=== PATIENT | male | born 1970 | race Caucasian/White ===

== ENCOUNTER 2018-07-06 03:34 | Inpatient (IN) ==
[2018-07-06] MEDS ORDERED: NS 500 ML IV ONE (04:03)
[2018-07-06] MEDS ORDERED: MORPHINE IV ONE ×3 (04:04→06:06)
[2018-07-06] MEDS ORDERED: ZOFRAN IV ONE (04:08)
[2018-07-06 04:32] LABS: BASO# 0.03 X1000 (0.0-0.2); BASO% 0.2 % (0.0-0.8); EOS# 0.09 X1000 (0.0-0.7); EOS% 0.6 % (0.0-10.0); HEMATOCRIT 37.8 % (42.0-52.0); IMM GRAN# 0.04 X1000 (0.0-0.04); IMM GRAN% 0.3 % (0.0-0.5); LYMPH# 1.12 X1000 (1.2-3.4); LYMPH% 7.2 % (20.5-51.1); MCV 85.8 FL (81-99); MONO# 1.87 X1000 (0.11-0.59); MPV 11.7 FL (7.4-10.4); NEUT# 12.37 X1000 (1.4-6.5); NEUT% 79.7 % (42.2-75.2); PLT 189 X1000 (130-400); RBC 4.43 XMIL (4.7-6.1); RDW 13.1 % (11.5-14.5)
[2018-07-06 04:34] LABS: MCH 31.8 PG (27-31); WBC 15.89 X1000 (4.8-10.8)
[2018-07-06 04:38] LABS: AGAP 17; ALBUMIN 3.1 g/dL (3.5-5.0); ALKALINE PHOSPHATASE 96 U/L (32-122); BUN 10 mg/dL (8-22); CALCIUM 8.2 mg/dL (8.8-10.2); CHLORIDE 87 mmol/L (98-107); COSMO 263; CREATININE 0.5 mg/dL (0.7-1.2); ESTIMATED GFR > 60; GLUCOSE 384 mg/dL (70-104); POTASSIUM 3.9 mmol/L (3.5-5.1); SODIUM 123 mmol/L (136-145); TCO2 19 mmol/L (25-35); TOTAL PROTEIN 6.5 g/dL (6.3-8.3)
[2018-07-06 04:43] LABS: AMYLASE 133 U/L (20-200); GOT < 5 U/L (10-34); GPT 43 U/L (10-44); LIPASE 890 U/L (13-60)
[2018-07-06] MEDS ORDERED: HUMULIN R IV ONE (04:58)
[2018-07-06 06:01] LABS: BILIRUBIN URINE NEGATIVE (NEGATIVE); BLOOD URINE 1+ (NEGATIVE); CLARITY CLEAR (CLEAR); COLOR YELLOW; KETONE URINE 3+(Large) mg/dL (NEGATIVE); LEUKOCYTES URINE NEGATIVE (NEGATIVE); NITRITE URINE NEGATIVE (NEGATIVE); PROTEIN URINE TRACE mg/dL (NEGATIVE); UROBILINOGEN URINE NORMAL
[2018-07-06 06:07] LABS: URINE EPITHELIAL CELLS <10 /HPF (<10); URINE RBC <10 /HPF (<10); URINE SOURCE CLEAN CATCH; URINE WBC <10 /HPF (<10)
[2018-07-06] MEDS ORDERED: NS 1,000 ML IV SCH (06:15)
--- NOTE | 2018-07-06 06:21 | PROVIDER DOCUMENTATION ---
HPI-Abdominal Pain/GI Problem - General Chief Complaint: Abdominal Pain Stated Complaint: ABD PAIN Time Seen by Provider: 07/06/18 04:02 Source: patient, family Allergies/Adverse Reactions: Patient Allergies Allergy/AdvReac Type Severity Reaction Status Date / Time Sulfa (Sulfonamide Allergy Severe RASH Verified 07/06/18 03:56 Antibiotics) Home Medications: Home Medication List Medication Instructions Recorded Confirmed Last Taken Type Diclofenac Potassium [Zipsor] 25 mg PO DAILY 05/16/13 01/06/14 05/14/13 History Losartan Potassium 100 mg PO QAM 05/16/13 05/17/18 05/19/13 08:00 History Clonidine HCl 0.2 mg PO Q6-8H PRN PRN #20 tablet 01/06/14 05/17/18 Unknown Rx Losartan [Cozaar] 100 mg PO DAILY 10/04/15 10/04/15 Unknown History Meclizine HCl [Antivert] 25 mg PO Q8H PRN #20 tab 05/17/18 Unknown Rx Ondansetron Odt [Zofran 4 mg Odt] 4 mg PO Q6H PRN PRN #20 tab 05/17/18 Unknown Rx Promethazine [Phenergan] 25 mg PO Q6H PRN PRN #20 tab 05/17/18 Unknown Rx - History of Present Illness-ABD Nature of Presenting Problems: 47 yo WM had an umbilical hernia repaired a fewdays ago, developed midepigastric pain shortly thereafter. He has had increasingly severe pain , prompting a visit to the ER around 4 am. He denies any recent alcohol injestion, gallbladder disease, thiazide diuretics, bee or wasp stings and IVD use Review of Systems - Adult - REVIEW OF SYSTEMS - ADULT Constitutional: reports: see HPI, fatique, night sweats Eyes: reports: no symptoms reported Ears, Nose, Mouth & Throat: reports: no symptoms reported Cardiovascular: reports: no symptoms reported Respiratory: reports: no symptoms reported Gastrointestinal: reports: see HPI, abdominal pain. denies: hematemesis, diarrhea, vomiting Genitourinary: reports: no symptoms reported Musculoskeletal: reports: no symptoms reported Integumentary: reports: no symptoms reported Neurological: reports: no symptoms reported Psychiatric: reports: no symptoms reported Endocrine: reports: no symptoms reported Hematologic/Lymphatic: reports: no symptoms reported Allergic/Immunologic: reports: no symptoms reported Past History - Adult - PAST MEDICAL HISTORY-ADULT Review of Records: reports: Medications Reviewed Major Childhood Illnesses: reports: denies history Cardiovascular: reports: HTN Respiratory: reports: denies history Gastrointestinal: reports: denies history Genitourinary: reports: denies history Musculoskeletal: reports: denies history Neurological: reports: denies history Psychiatric: reports: anxiety Endocrine/Immune: reports: denies history Other Conditions: reports: denies history - PRIOR SURGERIES/PROCEDURES Surgical/Procedure History: reports: hernia repair, orthopedic (extremity) - IMMUNIZATION STATUS Childhood Immunizations: See Nurse Assessment Flu Vaccine: See Nurse Assessment - FAMILY HISTORY Family History: reviewed, not pertinent Physical Exam-General - PHYSICAL EXAM-ADULT Initial Vital Signs Reviewed: Yes - CONSTITUTIONAL General Appearance: alert, severe distress, obese - EYES Eyes: PERRL/EOMI, pink conjunctivae - HEAD, EARS, NOSE, MOUTH & THROAT HENMT: normocephalic/atraumatic, moist mucous membranes - NECK Neck: non-tender, full range of motion, supple - RESPIRATORY Respiratory: chest non-tender, lungs clear, normal breath sounds, no accessory muscle use - CARDIOVASCULAR Cardiovascular: normal peripheral pulses, regular rate, rhythm, no edema, no gallop, no JVD, no murmur - GASTROINTESTINAL (ABDOMEN) Abdominal Exam: distended, guarding, tenderness, hepatomegaly. negative: normal bowel sounds - MUSCULOSKELETAL Back Exam: normal inspection, no CVA tenderness Extremity: normal range of motion Peripheral Pulses: radial (R): 3+, radial (L): 3+, dorsalis-pedis (R): 3+, dorsalis-pedis (L): 3+ - SKIN Integumentary: normal color, normal turgor, warm/dry - NEUROLOGIC Neurologic: grossly normal - PSYCHIATRIC Psych/Mental Status: anxious Progress - PLAN OF CARE/RESULTS Progress/Plan/Lab Results: Vital Signs - 8 hr 07/06/18 03:41 Temperature 97.9 F Pulse Rate 121 H Respiratory Rate 22 Blood Pressure 143/102 O2 Sat by Pulse Oximetry 96 Laboratory Results - last 24 hr 07/06/18 07/06/18 07/06/18 03:55 03:55 05:50 WBC 15.89 H RBC 4.43 L Hgb 14.0 Hct 37.8 L MCV 85.8 MCH 31.8 H MCHC 37.0 RDW Std Deviation 13.1 Plt Count 189 MPV 11.7 H Immature Gran % (Auto) 0.3 Neut % (Auto) 79.7 H Lymph % (Auto) 7.2 L Peach % (Auto) 12.0 H Eos % (Auto) 0.6 Baso % (Auto) 0.2 Immature Gran # (Auto) 0.04 Neut # (Auto) 12.37 H Lymph # (Auto) 1.12 L Peach # (Auto) 1.87 H Eos # (Auto) 0.09 Baso # (Auto) 0.03 Sodium 123 L Potassium 3.9 Chloride 87 L Carbon Dioxide 19 L Anion Gap 17 BUN 10 Creatinine 0.5 L Estimated GFR/1.73 m2 > 60 BUN/Creatinine Ratio 20 Glucose 384 H Calculated Osmolality 263 Calcium 8.2 L Total Bilirubin 0.60 AST < 5 L ALT 43 Alkaline Phosphatase 96 Total Protein 6.5 Albumin 3.1 L Globulin 3.0 Albumin/Globulin Ratio 1.0 Amylase 133 Lipase 890 H Urine Source CLEAN CATCH Urine Color YELLOW Urine Clarity CLEAR Urine pH 5.0 Ur Specific [place] 1.010 Urine Protein TRACE A Urine Ketones 3+(Large) A Urine Blood 1+ A Urine Nitrite NEGATIVE Urine Bilirubin NEGATIVE Urine Urobilinogen NORMAL Urine Microscopic RBC <10 Urine WBC NEGATIVE Urine Microscopic WBC <10 Ur Epithelial Cells <10 Urine Glucose 3+(500 mg/dL) A Orders Category Date Time Status Saline Loc DIRECTED Care 07/06/18 03:45 Active NPO Diet 07/06/18 03:[address] ABD/PELVIS W/IV CONT ONLY [CT] Stat Exams 07/06/18 04:51 Taken FLAT/UPRIGHT ABD/1 VIEW CHEST [RAD] Stat Exams 07/06/18 04:02 Taken AMYLASE [CHEM] Stat Lab 07/06/18 03:55 Completed CBC WITH ELECTRONIC DIFF [HEME] Stat Lab 07/06/18 03:55 Completed COMPREHENSIVE METABOLIC PANEL [CHEM] Stat Lab 07/06/18 03:55 Completed LIPASE [CHEM] Stat Lab 07/06/18 03:[address] W/POSS RFLX CULT [URINALYSIS] Stat Lab 07/06/18 05:50 Completed 0.9% Sodium Chloride Inj [Ns] 1,000 ml Med 07/06/18 06:15 Active IV 500 mls/hr 0.9% Sodium Chloride Inj [Ns] 500 ml Med 07/06/18 04:03 Discontinued IV 999 mls/hr Insulin Human Regular [Humulin R] Med 07/06/18 04:58 Discontinued 8 unit IV NOW ONE Morphine Med 07/06/18 04:04 Discontinued 6 mg IV NOW ONE Morphine Med 07/06/18 05:04 Discontinued 6 mg IV NOW ONE Morphine Med 07/06/18 06:06 Discontinued 8 mg IV NOW ONE Ondansetron [Zofran] Med 07/06/18 04:08 Discontinued 4 mg IV NOW ONE Result Diagrams: 07/06/18 03:55 07/06/18 03:55 - CT/MRI 1 CT Study: Abdomen, Pelvis (pancreatitis, primarily head) - CONSULTS/PCP/HOSPITALIST Notification #1 *Consult/PCP/Hospitalist*: Dr Lopez Time Discussed: 06:15 Consult Disposition: Admit - CHANGE OF SHIFT REPORT (ED Provider) Items Pending: Pain Control Departure - Departure Date of Disposition Decision: 07/06/18 Time of Disposition Decision: 06:30 DIAGNOSIS: Pancreatitis, acute Qualifiers: Pancreatitis type: idiopathic Acute pancreatitis complication: no infection or necrosis Qualified Code(s): K85.00 - Idiopathic acute pancreatitis without necrosis or infection Disposition: ADMITTED INPATIENT 09 Certified Medical Emergency: Emergent Condition: Fair Referrals and Follow-Ups: Adán Dougherty MD [Primary Care Provider] - - Critical Care Note This patient required my direct & personal management of CC.: Yes Total Time (mins): 45 Critical Care Statement: This patient required my direct personal management to treat or rule out processes, the absence of which, could potentiallly result in sudden, clinically significant life or limb threatening deterioration. Attestation - Physician/ TITI Attestation The physician spent face to face time with patient:: Yes Advanced Practice Provider documentation review:: Supervising physician onsite and consulted in the evaluation and care of this patient. The physician did have a face to face encounter with the patient.
--- NOTE | 2018-07-06 07:33 | Diag Imaging Result Doc PS360 ---
EXAM: FLAT/UPRIGHT ABD/1 VIEW CHEST HISTORY: acute TECHNIQUE: Flat and upright with chest, four views COMPARISON: None. FINDINGS: The lungs are well expanded. No pneumonia. No cardiomegaly. No free air beneath the diaphragm. No bowel obstruction. No organomegaly. No foreign body. No abnormal calcifications. IMPRESSION: No acute abnormality. Electronically signed by Jose Luis Guillen 07/06/2018 7:31 AM
--- NOTE | 2018-07-06 07:34 | Diag Imaging Result Doc PS360 ---
EXAM: CT ABD/PELVIS W/IV CONT ONLY INDICATION: acute abdomen - pancreatitis TECHNIQUE: This exam was performed using automated exposure control, adjustment of mA or kV according to patient size, and/or use of iterative reconstruction technique. COMPARISON: 05/17/2018 FINDINGS: There is mild subsegmental atelectasis at the lung bases. There is significant diffuse hepatic steatosis. The gallbladder is unremarkable and there is no biliary dilatation. There is inflammatory stranding and trace free fluid around the pancreatic head consistent with acute pancreatitis. There is no CT evidence of pancreatic necrosis and no peripancreatic abscess or pseudocyst is identified. The portal and splenic veins are patent. There is no pancreatic ductal dilatation. The spleen and adrenal glands are unremarkable. There is a small simple appearing right renal cyst. The kidneys are unremarkable, otherwise. Urinary bladder is unremarkable. There is mild sigmoid colonic diverticulosis. There is no evidence of diverticulitis. The appendix is normal. The remainder of the GI tract is essentially unremarkable. IMPRESSION: 1.Acute pancreatitis as described. 2.Severe diffuse hepatic steatosis. 3.Other external/nonacute findings detailed above. Electronically signed by Emmett Turner 07/06/2018 7:32 AM
--- NOTE | 2018-07-06 08:55 | EKG Report ---
Test Performed on : 07/06/2018 06:24:43 AM Test Reason : CP Blood Pressure : / mmHG Vent. Rate : 115 BPM Atrial Rate : 115 BPM P-R Int : 130 ms QRS Dur : 092 ms QT Int : 324 ms P-R-T Axes : 059 028 029 degrees QTc Int : 448 ms Sinus tachycardia. with occasional premature ventricular complexes. Otherwise normal ECG No previous ECGs available Unconfirmed Result
[2018-07-06] MEDS ORDERED: SODIUM CHLORIDE 0.9% 10 ML ONE (11:16)
[2018-07-06] MEDS: ZOFRAN IV PRN ×3 (11:23→22:20)
[2018-07-06] MEDS: PROTONIX IV SCH ×2 (11:25→22:20)
[2018-07-06] MEDS: DILAUDID IV PRN ×4 (11:27→21:08)
[2018-07-06] MEDS: NS 1,000 ML IV SCH ×2 (13:10→21:15)
[2018-07-06] MEDS ORDERED: M.V.I.-12 10 ML, FOLIC ACID 1 MG, MAGNESIUM SULFATE 1 GM, THIAMINE 100 MG in NS 1,000 ML IV ONE (13:11)
[2018-07-06] MEDS: LIBRIUM PO SCH ×2 (13:35→19:43)
[2018-07-06] MEDS ORDERED: ATIVAN IV ONE (14:48)
--- NOTE | 2018-07-06 22:57 | HISTORY AND PHYSICAL ---
CHIEF COMPLAINT: Abdominal pain and nausea for 3 days. HISTORY OF PRESENT ILLNESS: This is a 47-year-old gentleman who presented to the emergency room after 3 days of abdominal pain. He states that the pain has slowly increased over time and he describes it as excruciating on triage. He did have some accompanying nausea. He has not vomited. He did have 3 bowel movements yesterday and he denied any black or bloody stools. He was noted to have a white count of 15.8 with lipase of 890. CT of the abdomen and pelvis was performed which revealed acute pancreatitis and severe diffuse hepatic steatosis. PAST MEDICAL HISTORY: Hypertension, hyperlipidemia and chronic back pain. 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 SOCIAL HISTORY: He smokes a pack a day. He does drink alcohol. ALLERGIES: Sulfa which causes a rash. HOME MEDICATIONS: A list will be obtained by the nursing staff. Once verified , will be restarted as is appropriate. REVIEW OF SYSTEMS: Discussed with the patient with pertinent positives stated in the HPI. He denied any syncope, dizziness, chest pain, palpitations, any shortness of breath , cough, fever, chills, any night sweats, recent weight loss or weight gain, any black or bloody vomitus or stools, any vomiting, any diarrhea, any hematuria, dysuria, frequency, urgency. PHYSICAL EXAMINATION: GENERAL: This is a 47-year-old gentleman who is sitting up in the bed in the emergency room in mild distress. VITAL SIGNS: Blood pressure is 120/76 with a heart rate of 106, respirations are 20, temperature is 97.2 degrees with O2 saturations being 97% on 2 L nasal cannula. EYES: Pupils are equal, round, react to light. EOMs are intact. Sclerae anicteric. HENT: Head is normocephalic, atraumatic. Mucous membranes are dry. NECK: Supple with trachea midline. CARDIOVASCULAR: Regular rate and rhythm. S1 and S2 appreciated. He has no lower extremity edema. Peripheral pulses are palpable x4 extremities. PULMONARY: Breath sounds are clear with no increased work of breathing noted. GASTROINTESTINAL: Abdomen is distended, tight It is tender to palpation more so in the epigastric area. Bowel sounds are positive in all 4 quadrants. SKIN: Warm and dry. NEUROLOGIC: He is alert and oriented. LABS: WBCs are 15.8 with hemoglobin 14, hematocrit 37.8, platelets of 189,000. Sodium is 123, potassium 3.9, BUN 10, creatinine 0.5 with a glucose of 384, lipase is 890. CT of the abdomen and pelvis revealed acute pancreatitis with severe diffuse hepatic steatosis with a small simple- appearing cyst on the right kidney. There is no evidence of diverticulitis. Appendix is normal. ASSESSMENT AND PLAN: 1. Acute pancreatitis. The patient will remain NPO. We will give IV hydration. He will be placed in ICU for close monitoring. 2. Nausea. We will use antiemetics. 3. Abdominal pain. We will give Dilaudid 1 mg IV q.3 hours p.r.n. 4. Hyponatremia. We will give IV hydration and recheck labs in the morning. 5. Alcohol use and abuse. We will start a Librium taper. We will give a banana bag 1 time, 6. Hypertension Hydralazine IV prn until he can tolerate oral medications. 7. Hyperglycemia - HbgA1c, trend labs Further treatments pending hospital course. Dictated by KT Jara for Wolfgang Uribe MD This chart was documented by, KT Jara and accurately reflects the services performed, treatment plan and medical decisions as attested by the providers signature Wolfgang Uribe MD. cc: KT Jara MD [facility]
[2018-07-07] MEDS: DILAUDID IV PRN ×6 (00:08→18:20)
[2018-07-07] MEDS: LIBRIUM PO SCH ×4 (01:13→20:39)
[2018-07-07] MEDS: NS 1,000 ML IV SCH ×4 (01:14→22:44)
--- NOTE | 2018-07-07 03:03 | HISTORY AND PHYSICAL ---
Patient presented to the hospital with intense abdominal pain, was subsequently diagnosed with pancreatitis. He does have a known history of frequent alcohol ingestion. We will admit him to the hospital ICU, keep him NPO, pain control and we will follow. cc: Wolfgang Uribe MD
[2018-07-07] MEDS: ZOFRAN IV PRN ×2 (03:14→20:40)
[2018-07-07] MEDS: SODIUM CHLORIDE 0.9% INJ SCH (11:42)
[2018-07-07] MEDS: PROTONIX IV SCH ×2 (11:42→22:44)
[2018-07-07 12:21] LABS: HEMOGLOBIN A1C 11.5 % (4.8-6.0)
[2018-07-07 12:26] LABS: HEMATOCRIT 37.7 % (42.0-52.0); HEMOGLOBIN 12.2 g/dL (14.0-18.0); MCH 29.5 PG (27-31); MCHC 32.4 g/dL (33-37); MCV 91.3 FL (81-99); MPV 12.4 FL (7.4-10.4); RBC 4.13 XMIL (4.7-6.1); RDW 14.5 % (11.5-14.5); WBC 5.15 X1000 (4.8-10.8)
[2018-07-07 12:40] LABS: AGAP 16; ALBUMIN 2.6 g/dL (3.5-5.0); ALKALINE PHOSPHATASE 70 U/L (32-122); AMYLASE 210 U/L (20-200); BUN 17 mg/dL (8-22); CHLORIDE 96 mmol/L (98-107); COSMO 281; ESTIMATED GFR > 60; GOT 20 U/L (10-34); GPT 27 U/L (10-44); LIPASE 444 U/L (13-60); POTASSIUM 5.1 mmol/L (3.5-5.1); SODIUM 128 mmol/L (136-145); TCO2 17 mmol/L (25-35); TOTAL PROTEIN 5.3 g/dL (6.3-8.3)
[2018-07-07 12:41] LABS: CALCIUM 5.9 mg/dL (8.8-10.2); GLUCOSE 504 mg/dL (70-104)
[2018-07-07] MEDS ORDERED: CALCIUM GLUCONATE 1 GM in NS 50 ML IV ONE (13:15)
[2018-07-07] MEDS: HUMALOG DOSE (PARKWAY) SUBQ SCH ×3 (16:24→20:40)
[2018-07-07] MEDS ORDERED: DILAUDID IV PRN (18:30)
--- NOTE | 2018-07-08 00:25 | PROGRESS NOTE ---
DATE: 07/07/2018 SUBJECTIVE: The patient states he is still having lots of abdominal pain in his epigastric region requiring IV pain medication. The patient is very adamant that he is going to start being allowed to drink or he is going to drink out of the sink. The patient is somewhat verbally abusive to his as well as the staff, more so to the female staff than to the male staff. PHYSICAL EXAMINATION: Vital Signs: Reviewed. He is afebrile. Blood pressure stable. Heart rate 80s. General: Patient is an obese male who chooses to be unpleasant most of the time. He is quite demanding and has a somewhat persistent refusal to listen to instructions or follow directions. HEENT: Normocephalic. Neck: Supple. Cardiovascular: Regular rate. Chest: Clear, nonlabored. Abdomen: Soft, morbidly obese. Tender in the epigastric region. No real tenderness elsewhere. No guarding. No rebound. Extremities: Moves all extremities. Neurologic: No focal changes. ASSESSMENT: 1. New onset diabetes. 2. Acute pancreatitis. The patient does have a history of drinking alcohol although his now states that this is not as much as was previously stated. 3. Chronic tobacco abuse. We will attempt a nicotine patch. 4. Hyponatremia, improved. 5. Significant unpleasantness. PLAN: We will continue patient in the hospital. His amylase and lipase both are still elevated at above 200 and above 400. The patient is still requiring frequent high dose IV pain medication. I discussed with Mr. Villanueva very explicitly the role of all oral intake to pancreatitis. Discussed with him that people his age do in fact actually from this disease and it needs to be taken seriously. We will continue to follow. We will check triglycerides. We will place him on sliding scale insulin. Discussed with patient that our typical policy is if he is requiring IV pain medication that we are not yet ready to start drinking liquids. We will continue to follow. Continue to encourage medical compliance. Hopefully he will decline to have further unnecessary outbursts and therefore security will not need to be called in the future. cc: Wolfgang Uribe MD
[2018-07-08] MEDS: NORCO-10 PO PRN ×4 (01:46→21:26)
[2018-07-08] MEDS: ZOFRAN IV PRN ×3 (01:47→21:27)
[2018-07-08] MEDS: NICODERM PATCH TD PRN (01:47)
[2018-07-08] MEDS: LIBRIUM PO SCH ×3 (05:33→21:27)
[2018-07-08] MEDS: NS 1,000 ML IV SCH ×3 (05:33→22:09)
[2018-07-08] MEDS: HUMALOG DOSE (PARKWAY) SUBQ SCH ×4 (07:15→22:06)
[2018-07-08 07:27] LABS: HEMATOCRIT 33.8 % (42.0-52.0); HEMOGLOBIN 10.4 g/dL (14.0-18.0); MCH 28.7 PG (27-31); MCHC 30.8 g/dL (33-37); MCV 93.4 FL (81-99); MPV 12.3 FL (7.4-10.4); RBC 3.62 XMIL (4.7-6.1); RDW 14.9 % (11.5-14.5); WBC 5.22 X1000 (4.8-10.8)
[2018-07-08 07:54] LABS: AGAP 12; ALBUMIN 2.2 g/dL (3.5-5.0); ALKALINE PHOSPHATASE 66 U/L (32-122); AMYLASE 112 U/L (20-200); BUN 13 mg/dL (8-22); CALCIUM 6.9 mg/dL (8.8-10.2); CHLORIDE 101 mmol/L (98-107); COSMO 275; CREATININE 0.7 mg/dL (0.7-1.2); ESTIMATED GFR > 60; GLUCOSE 212 mg/dL (70-104); GOT 21 U/L (10-34); GPT 23 U/L (10-44); LIPASE 217 U/L (13-60); POTASSIUM 4.3 mmol/L (3.5-5.1); SODIUM 134 mmol/L (136-145); TCO2 21 mmol/L (25-35); TOTAL PROTEIN 5.9 g/dL (6.3-8.3)
[2018-07-08] MEDS ORDERED: CALCIUM GLUCONATE 2 GM in NS 100 ML IV ONE (10:00)
--- NOTE | 2018-07-08 10:50 | Diag Imaging Result Doc PS360 ---
CT ABD/PELVIS W/IV CONT ONLY - 07/08/2018 INDICATION: abd/groin pain, pancreatitis COMPARISON: 07/06/2018 FINDINGS: There are small bibasilar infiltrates. Small bilateral pleural effusions. There is worsening peripancreatic edema consistent with acute pancreatitis. There is trace ascites in the pelvis. Stable severe hepatic steatosis. No drainable fluid collections. IMPRESSION: Worsening from prior. This exam was performed using automated exposure control, adjustment of mA or kV according to patient size, and/or use of iterative reconstruction technique Electronically signed by Richard Higgins 07/08/2018 10:48 AM
[2018-07-08] MEDS: SODIUM CHLORIDE 0.9% INJ SCH (11:04)
[2018-07-08] MEDS: PROTONIX IV SCH ×2 (11:04→22:30)
--- NOTE | 2018-07-08 20:02 | PROGRESS NOTE ---
DATE: 07/08/2018 SUBJECTIVE: Patient notes that he is feeling better. States he did attempt to drink out of the sink last night, unfortunately this made his abdomen hurt much worse and then he decided that was not a good idea. OBJECTIVE: Vital Signs: Reviewed. He is awake, alert. He is in no current distress. HEENT: Normocephalic. Neck: Supple. CARDIOVASCULAR: Regular rate. Chest: Clear. Abdomen: Soft, obese. Minimal tenderness in the epigastric region, much improved from previous. Extremities: He moves all extremities. ASSESSMENT: 1. Acute pancreatitis. 2. Nausea. 3. Abdominal pain. 4. Hyponatremia. 5. Diabetes with extremely poor home control with an A1c of 11.5. 6. Hypertriglyceridemia at 1783. Overall patient has improved. His leukocytosis has improved. His hyponatremia has improved. Blood sugars are more stable. Lipase down to 217. His symptoms appear to be improving clinically, although CT scan appeared to be worse. We will allow him to have clear liquids. Discussed with him that if this is making his stomach hurt more, he certainly needs to stop. We will transfer to the floor. Continue sliding scale insulin and will follow. cc: Wolfgang Uribe MD
[2018-07-08 23:19] LABS: URINE EPITHELIAL CELLS <10 /HPF (<10); URINE RBC 20-40 /HPF (<10); URINE SOURCE CATH; URINE WBC <10 /HPF (<10)
[2018-07-08 23:20] LABS: BILIRUBIN URINE NEGATIVE (NEGATIVE); BLOOD URINE 3+ (NEGATIVE); CLARITY CLEAR (CLEAR); COLOR YELLOW; KETONE URINE 2+(Moderate) mg/dL (NEGATIVE); LEUKOCYTES URINE NEGATIVE (NEGATIVE); NITRITE URINE NEGATIVE (NEGATIVE); PROTEIN URINE TRACE mg/dL (NEGATIVE); URINE BACTERIA 1+ /HFP; UROBILINOGEN URINE NORMAL
[2018-07-09] MEDS: HUMALOG DOSE (PARKWAY) SUBQ SCH ×5 (00:34→21:00)
[2018-07-09] MEDS: NS 1,000 ML IV SCH ×2 (00:34→13:28)
[2018-07-09] MEDS ORDERED: ATIVAN ONE (01:32)
[2018-07-09] MEDS ORDERED: ATIVAN IV ONE ×2 (01:59→10:00)
[2018-07-09] MEDS ORDERED: VANCOMYCIN IV PER PHARMACY MISC SCH (02:00)
[2018-07-09] MEDS: VANCOMYCIN 1 GM/NS 1 GM/250 ML IVPB IV SCH ×2 (02:18→02:48)
[2018-07-09] MEDS: ZOSYN 3.375 GM in NS 50 ML IV SCH ×4 (02:18→21:21)
[2018-07-09 02:29] LABS: BASO# 0.01 X1000 (0.0-0.2); BASO% 0.2 % (0.0-0.8); EOS# 0.08 X1000 (0.0-0.7); EOS% 1.6 % (0.0-10.0); HEMATOCRIT 33.6 % (42.0-52.0); HEMOGLOBIN 10.7 g/dL (14.0-18.0); IMM GRAN# 0.05 X1000 (0.0-0.04); LYMPH# 0.58 X1000 (1.2-3.4); LYMPH% 11.7 % (20.5-51.1); MCH 30.1 PG (27-31); MCHC 31.8 g/dL (33-37); MCV 94.4 FL (81-99); MONO# 0.25 X1000 (0.11-0.59); MONO% 5.1 % (1.7-9.3); NEUT# 3.98 X1000 (1.4-6.5); NEUT% 80.4 % (42.2-75.2); PLT 135 X1000 (130-400); RBC 3.56 XMIL (4.7-6.1); WBC 4.95 X1000 (4.8-10.8)
[2018-07-09] MEDS: NORCO-10 PO PRN (02:29)
[2018-07-09 04:00] LABS: BANDS 9 % (0-1); EOS 1 % (1-10); LYMPHS 12 % (21-51); MONO 1 % (1-9); SEGS 77 % (42-75)
[2018-07-09 04:01] LABS: ANISOCYTOSIS 1+; LARGE PLATELETS 1+; POIKILOCYTOSIS 1+; STOMATOCYTES 1+
[2018-07-09 04:14] LABS: AGAP 12; BUN 8 mg/dL (8-22); CALCIUM 8.1 mg/dL (8.8-10.2); CHLORIDE 104 mmol/L (98-107); COSMO 280; CREATININE 0.7 mg/dL (0.7-1.2); ESTIMATED GFR > 60; GLUCOSE 200 mg/dL (70-104); POTASSIUM 3.4 mmol/L (3.5-5.1); SODIUM 138 mmol/L (136-145); TCO2 23 mmol/L (25-35)
[2018-07-09] MEDS ORDERED: ATROVENT NEB INH ONE (08:03)
[2018-07-09] MEDS ORDERED: XOPENEX NEB INH ONE (08:03)
[2018-07-09 08:11] LABS: BE -4.8 mmoll (-3.0-3.0); BLOOD TYPE ARTERIAL; O2(CT) 16.2 mL/dL (15.0-23.0); O2HB 90.1 % (95.0-99.0); PO2(98.6) 52 mmHg (60-100); SAMPLE BLOOD; SAO2 93.4 % (95.0-100.0); THB 12.8 g/dL (11.5-17.4)
[2018-07-09 08:15] LABS: PCO2(98.6) 62 mmHg (35-45)
[2018-07-09 08:16] LABS: ALLEN TEST YES; MODALITY VENTIMASK
--- NOTE | 2018-07-09 08:36 | Diag Imaging Result Doc PS360 ---
EXAM: CHEST-PORTABLE - 07/09/2018 HISTORY: low O2 SAt TECHNIQUE: Portable chest COMPARISON: 07/06/2018 FINDINGS: Inspiration is somewhat shallow, with some atelectasis at the bilateral lung bases and left perihilar region. There are no other acute changes identified. Allowing for inspiration and the AP projection, heart size appears within normal limits. IMPRESSION: Somewhat shallow inspiration, with associated bibasilar and left perihilar atelectasis. Electronically signed by Adán Negron 07/09/2018 8:34 AM
[2018-07-09] MEDS: LIBRIUM PO SCH (08:41)
[2018-07-09 08:44] LABS: ALBUMIN 2.2 g/dL (3.5-5.0); ALKALINE PHOSPHATASE 79 U/L (32-122); DIRECT BILIRUBIN < 0.20 mg/dL (0.00-0.20); GOT 51 U/L (10-34); GPT 40 U/L (10-44)
[2018-07-09] MEDS: HALDOL IV ONE (10:24)
[2018-07-09] MEDS ORDERED: NS 1,000 ML IV SCH (10:45)
--- NOTE | 2018-07-09 11:04 | PROGRESS NOTE ---
DATE: 07/09/2018 SUBJECTIVE: The patient has no focal complaints. OBJECTIVE: Vital Signs: Blood pressure is 153/91, heart rate of 118, respiratory rate 20, temperature 98.9 degrees, 95% on BiPAP, 90% on 6 L. General: The patient is very agitated, he just has a lot of issues associated with that. Cardiovascular: Tachy. Pulmonary: Rhonchi, wheezing. GI: Soft, nontender, nondistended. Bowel sounds were positive. LABORATORY DATA: His potassium is 3.4, hemoglobin and hematocrit is 10 and 33. PH 7.2, pCO2 62, PaO2 52. Lactate is normal. He is very hypercapnic. PROBLEM LIST: 1. Acute pancreatitis, with some degree of sepsis associated. He is tachycardic, and he developed hypoxic respiratory failure. We will continue to follow. He is very agitated. I am not sure if this is related to other processes going on. 2. Acute respiratory failure. We will get some diuresis. His chest x-ray is clear. I am going to put him on some breathing treatments. He has been placed on BiPAP. Chest x-ray shows some degree of volume overload. I think we will continue. We will decrease that and offer some Lasix, help with diuresis. 3. Encephalopathy may be related to pain medication or metabolic with sepsis, or possibly alcohol withdrawal. He is on Librium, so there is a component of alcohol withdrawal, I think. DISPOSITION: Pending his clinical status. We will continue to follow closely. TIME SPENT: This is a 32 minute critical care time for association with respiratory failure, and now he is requiring positive-pressure ventilation. We will continue to follow closely. cc: Galindo Patel MD
[2018-07-09] MEDS: XOPENEX NEB INH SCH ×4 (11:55→23:00)
[2018-07-09] MEDS: ATROVENT NEB INH SCH ×4 (11:56→23:00)
[2018-07-09] MEDS: THIAMINE 100 MG, FOLIC ACID 1 MG, M.V.I.-12 10 ML, MAGNESIUM SULFATE 1 GM, POTASSIUM CH... IV SCH ×6 (12:20)
[2018-07-09] MEDS: PROTONIX IV SCH ×2 (13:25→23:30)
[2018-07-09] MEDS: LOVENOX SUBQ SCH (13:26)
[2018-07-09] MEDS: VANCOMYCIN 2,000 MG in NS 500 ML IV SCH (14:51)
[2018-07-09] MEDS: ATIVAN IV PRN ×2 (14:57→21:35)
[2018-07-09] MEDS ORDERED: INSULIN PEN NEEDLES MISC PRN (15:30)
[2018-07-09] MEDS: HALDOL IV PRN ×2 (15:53→21:34)
[2018-07-09] MEDS: NICODERM PATCH TD PRN (15:54)
--- NOTE | 2018-07-09 16:41 | Diag Imaging Result Doc PS360 ---
EXAM: US ABDOMEN-COMPLETE - 07/09/2018 HISTORY: abdominal pain TECHNIQUE: Ultrasound abdomen COMPARISON: 07/08/2018 CT abdomen/pelvis FINDINGS: The technologist indicates that the exam is degraded by artifacts from the patient's body habitus, as well as inability of the patient to cooperate. The liver appears diffusely echodense suggesting fatty infiltration. There is no focal liver lesion identified. Doppler image shows apparent hepatopedal flow in the portal vein. The spleen is unremarkable. There is a small amount of ascites. There is apparent sludge in the gallbladder. There are no discrete shadowing gallstones identified. There is a small amount of nonspecific fluid around part of the gallbladder. The gallbladder ames are not obviously thickened. The common bile duct is upper normal in caliber at 6 mm. There are no abnormalities of the bilateral kidneys identified. The pancreas is obscured by artifacts. Abdominal aorta and IVC are also obscured by artifacts. IMPRESSION: Fatty infiltration of liver. No evidence of focal liver lesion. Small amount ascites. Sludge in gallbladder. No discrete gallstones. Small amount of nonspecific fluid near gallbladder. No obvious gallbladder wall thickening. Upper normal caliber common bile duct at 6 mm. The pancreas is obscured by artifacts. Electronically signed by Adán Negron 07/09/2018 4:38 PM
[2018-07-09] MEDS: OFIRMEV 1000 MG/ISOTONIC SOLN 1,000 MG/100 ML BOTTLE IV PRN (16:48)
[2018-07-09] MEDS: VASOTEC IV SCH (17:57)
[2018-07-09] MEDS ORDERED: INSULIN PEN NEEDLES ONE (20:58)
[2018-07-09] MEDS ORDERED: BASAGLAR SUBQ SCH (21:00)
[2018-07-09] MEDS: MORPHINE IV PRN (21:31)
[2018-07-09] MEDS ORDERED: CARDENE 20 MG/NS 20 MG/200 ML PIGGYBACK ONE (22:21)
[2018-07-09] MEDS: CARDENE 20 MG/NS 20 MG/200 ML PIGGYBACK IV SCH (23:00)
[2018-07-10] MEDS: NS 1,000 ML IV SCH (00:30)
[2018-07-10] MEDS: VASOTEC IV SCH ×3 (01:15→16:40)
[2018-07-10] MEDS: HALDOL IV PRN ×4 (01:30→19:38)
[2018-07-10] MEDS: ZOSYN 3.375 GM in NS 50 ML IV SCH ×4 (02:28→20:43)
[2018-07-10] MEDS: THIAMINE 100 MG, FOLIC ACID 1 MG, M.V.I.-12 10 ML, MAGNESIUM SULFATE 1 GM, POTASSIUM CH... IV SCH ×12 (02:30→10:54)
[2018-07-10] MEDS: CARDENE 20 MG/NS 20 MG/200 ML PIGGYBACK IV SCH ×5 (02:35→16:21)
[2018-07-10] MEDS: MORPHINE IV PRN ×3 (02:37→19:38)
[2018-07-10] MEDS: ATIVAN IV PRN ×4 (02:37→19:38)
[2018-07-10] MEDS: XOPENEX NEB INH SCH ×7 (02:50→22:35)
[2018-07-10] MEDS: ATROVENT NEB INH SCH ×6 (02:50→22:35)
[2018-07-10] MEDS: VANCOMYCIN 2,000 MG in NS 500 ML IV SCH ×2 (03:00→14:09)
[2018-07-10 06:22] LABS: BE -9.1 mmoll (-3.0-3.0); BLOOD TYPE ARTERIAL; HCO3-(ACT) 17.7 mmoll (20.0-26.0); METHB 1.1 % (0.0-1.5); O2(CT) 19.6 mL/dL (15.0-23.0); PCO2(98.6) 29 mmHg (35-45); PO2(98.6) 68 mmHg (60-100); SAMPLE BLOOD; SAO2 97.2 % (95.0-100.0); THB 14.8 g/dL (11.5-17.4); pH(98.6) 7.33 (7.35-7.45)
[2018-07-10 06:24] LABS: BASO# 0.02 X1000 (0.0-0.2); BASO% 0.4 % (0.0-0.8); EOS# 0.05 X1000 (0.0-0.7); EOS% 0.9 % (0.0-10.0); HEMATOCRIT 33.6 % (42.0-52.0); HEMOGLOBIN 10.3 g/dL (14.0-18.0); IMM GRAN# 0.21 X1000 (0.0-0.04); IMM GRAN% 3.8 % (0.0-0.5); LYMPH# 0.91 X1000 (1.2-3.4); LYMPH% 16.3 % (20.5-51.1); MCH 28.6 PG (27-31); MCHC 30.7 g/dL (33-37); MCV 93.3 FL (81-99); MONO% 10.8 % (1.7-9.3); MPV 10.9 FL (7.4-10.4); NEUT# 3.78 X1000 (1.4-6.5); NEUT% 67.8 % (42.2-75.2); PLT 158 X1000 (130-400); RDW 15.2 % (11.5-14.5); WBC 5.57 X1000 (4.8-10.8)
[2018-07-10 06:24] LABS: ALLEN TEST YES; MODALITY BI PAP
--- NOTE | 2018-07-10 06:32 | Diag Imaging Result Doc PS360 ---
CHEST-PORTABLE - 07/10/2018 INDICATION: dyspnea COMPARISON: 07/09/2018 FINDINGS: Stable severely low lung volumes. There is worsening central infiltrates bilaterally, right greater than left. There is worsening cardiomegaly and pulmonary vascular congestion. IMPRESSION: Severe worsening from prior. Electronically signed by Richard Higgins 07/10/2018 6:30 AM
[2018-07-10 06:39] LABS: ESTIMATED GFR > 60
[2018-07-10 06:41] LABS: AGAP 22; BUN 9 mg/dL (8-22); CALCIUM 8.2 mg/dL (8.8-10.2); CHLORIDE 108 mmol/L (98-107); COSMO 294; CREATININE 0.8 mg/dL (0.7-1.2); GGT 32 U/L (11-50); GLUCOSE 218 mg/dL (70-104); MAGNESIUM 1.7 mg/dL (1.5-2.7); PHOSPHORUS 1.7 mg/dL (2.7-4.5); POTASSIUM 3.1 mmol/L (3.5-5.1); SODIUM 145 mmol/L (136-145); TCO2 15 mmol/L (25-35)
[2018-07-10] MEDS: HUMALOG DOSE (PARKWAY) SUBQ SCH ×4 (06:45→20:19)
[2018-07-10 08:12] LABS: BANDS 8 % (0-1); EOS 1 % (1-10); LYMPHS 9 % (21-51); MONO 6 % (1-9); SEGS 76 % (42-75)
[2018-07-10] MEDS: NICODERM PATCH TD PRN (08:21)
[2018-07-10] MEDS: LOVENOX SUBQ SCH (10:54)
[2018-07-10] MEDS: PROTONIX IV SCH (10:54)
[2018-07-10] MEDS: SODIUM CHLORIDE 0.9% INJ SCH (10:54)
[2018-07-10] MEDS ORDERED: LASIX IV ONE (11:04)
[2018-07-10] MEDS ORDERED: HALDOL IV ONE (11:09)
[2018-07-10] MEDS ORDERED: POTASSIUM PHOSPHATE 40 MEQ in NS 250 ML IV ONE ×2 (11:26→19:00)
--- NOTE | 2018-07-10 11:49 | PROGRESS NOTE ---
DATE: 07/10/2018 SUBJECTIVE: The patient is very ill since. He is still altered. He is kind of grumbling and groaning. Although, last night according to the , he was more alert, awake, and then this morning, he is confused again. OBJECTIVE: Vital signs: Blood pressure is 154/83, heart rate of 126, sinus tachycardia, respiratory rate 24, temperature 99 degrees, 99% on 50%. Cardiovascular: Regular rate and rhythm, tachy. Pulmonary: Bilateral breath sounds. Diminished at the bases with wheezing, rales. GI: Soft, nontender, nondistended. Bowel sounds are positive. LABORATORY DATA: Potassium 3.1, creatinine still 0.8. Sugar to 218. Mag is 1.7, phos of 1.7. White count 5, hemoglobin and hematocrit 10 and 33, platelets 158,000. I do not have a new lipase today. Lactate has been normal though. PROBLEM LIST: 1. Severe acute pancreatitis likely related to hypertriglyceridemia with some degree of multiorgan system failure primarily respiratory failure. We will continue treatment. I am going to have to cut back on his fluids because he is clinically volume overloaded and showing signs of pulmonary edema certainly versus acute respiratory distress syndrome. We will initiate some IV nutrition and follow. 2. Acute respiratory failure. He is on BiPAP. He does look like he is getting somewhat confused. He has been confused, but he is getting more overloaded. We will continue BiPAP and continue diuresis and follow. 3. Encephalopathy, unclear etiology. Reportedly no alcohol history. His GGT is normal which would suggest no chronic alcohol use. I am going to go ahead and get a head CT today just to make sure there is not other processes, and we will continue to try to avoid super sedating medications, although he has required Haldol, Ativan, and morphine. 4. New onset diabetes, poorly controlled. Blood sugars are better. I am not sure though today if he is not developing some degree of diabetic ketoacidosis. He has a gap, and sugars are elevated, and he is acidotic with a CO2 that is compensated. His lactate level is normal. So I am not sure if there may be some DKA going on. We are going to evaluate that further and start insulin. 5. Hypertriglyceridemia. He will need medications once he is stabilized. Obviously, he cannot start those now considering his altered mental status, and we will follow. 6. Protein calorie malnutrition. We will initiate Clinimix. We may consider tube feeds once he is stabilized a bit more. 7. Disposition. I think he is still very critically ill, not improving. He has been here about 5 days, and I think exhausted what we can offer at our facility. He may need Pulmonary, Neuro, and GI. I am going to try to get him to facility, as [facility] has no beds. We will try our local [facility], once they have a bed open. Will try [facility] daily. We will continue to follow closely. He is at a decompensation level that he may require intubation if his breathing does not subsequently improve. TIME SPENT: 35 minute critical care time. was updated on his condition, and understands his issues. cc: Galindo Patel MD
[2018-07-10] MEDS ORDERED: POTASSIUM CHLORIDE 20 MEQ/SWI 20 MEQ/100 ML IVPB IV SCH (12:00)
[2018-07-10] MEDS ORDERED: HUMULIN R (PARKWAY) 100 UNITS in NS 100 ML IV SCH (13:00)
[2018-07-10] MEDS ORDERED: D5 NS 1,000 ML IV SCH (14:00)
[2018-07-10 14:37] LABS: INR 1.1; PROTIME 14.8 Seconds (11.0-16.0)
[2018-07-10] MEDS ORDERED: NS 250 ML ONE (14:50)
[2018-07-10] MEDS: CLINIMIX E 4.25%-5% SOLUTION 1,000 ML IV SCH (16:21)
--- NOTE | 2018-07-10 17:11 | EKG Report ---
Test Performed on : 07/10/2018 12:05:07 PM Test Reason : cp Blood Pressure : / mmHG Vent. Rate : 123 BPM Atrial Rate : 123 BPM P-R Int : 132 ms QRS Dur : 100 ms QT Int : 338 ms P-R-T Axes : 056 019 141 degrees QTc Int : 483 ms Sinus tachycardia. Marked ST abnormality, possible lateral subendocardial injury Abnormal ECG When compared with ECG of 06-JUL-2018 06:24, (Unconfirmed) premature ventricular complexes. are no longer present ST now depressed in Lateral leads T wave inversion now evident in Lateral leads Unconfirmed Result
[2018-07-10 18:19] LABS: AGAP 18; BUN 8 mg/dL (8-22); CHLORIDE 111 mmol/L (98-107); COSMO 290; CREATININE 0.8 mg/dL (0.7-1.2); ESTIMATED GFR > 60; GLUCOSE 177 mg/dL (70-104); MAGNESIUM 1.3 mg/dL (1.5-2.7); PHOSPHORUS 1.2 mg/dL (2.7-4.5); SODIUM 144 mmol/L (136-145); TCO2 16 mmol/L (25-35)
[2018-07-10 18:21] LABS: POTASSIUM 1.8 mmol/L (3.5-5.1)
[2018-07-10 18:22] LABS: CALCIUM 6.9 mg/dL (8.8-10.2)
[2018-07-10] MEDS ORDERED: MAGNESIUM SULFATE 2 GM/S.W.I. 2 GM/50 ML IVPB IV ONE (18:25)
[2018-07-10] MEDS ORDERED: POTASSIUM CHLORIDE 40 MEQ in D5 NS 1,000 ML IV SCH (19:00)
[2018-07-10 22:36] LABS: AGAP 23; BUN 11 mg/dL (8-22); CALCIUM 8.3 mg/dL (8.8-10.2); CHLORIDE 106 mmol/L (98-107); COSMO 298; ESTIMATED GFR > 60; GLUCOSE 279 mg/dL (70-104); MAGNESIUM 2.1 mg/dL (1.5-2.7); PHOSPHORUS 3.4 mg/dL (2.7-4.5); SODIUM 145 mmol/L (136-145); TCO2 16 mmol/L (25-35)
[2018-07-10 22:46] LABS: POTASSIUM 2.4 mmol/L (3.5-5.1)
[2018-07-11] MEDS: PROTONIX IV SCH ×3 (00:01→22:28)
[2018-07-11] MEDS ORDERED: POTASSIUM CHLORIDE 40 MEQ/SWI 40 MEQ/100 ML IVPB IV ONE ×3 (00:30→09:05)
[2018-07-11] MEDS: HALDOL IV PRN ×4 (01:00→21:31)
[2018-07-11] MEDS: MORPHINE IV PRN ×4 (01:00→21:31)
[2018-07-11] MEDS: ATIVAN IV PRN ×3 (01:00→13:50)
--- NOTE | 2018-07-11 01:18 | ECHO REPORT ---
ORDER DATE: 07/10/2018 MEASUREMENTS: Left ventricular end-diastolic diameter 4.5, end-systolic diameter 2.5, septal thickness 1.4, wall thickness 1.3, aortic root 4.2, left atrium 2.6. SUMMARY: 1. Technically difficult study due to limited acoustic window quality. 2. Aortic valve is not well imaged but appears to be free of structural abnormality. Peak gradient across the aortic valve is 23 mmHg. Mitral and tricuspid valves are without gross structural abnormality. Pulmonic valve was not seen. The aortic root is mildly enlarged. Three normal left ventricular dimensions suggested on 2-dimensional images. The left ventricle appears hyperdynamic with estimated left ejection fraction greater than 75%. No obvious wall motion abnormality can be appreciated. Left atrium, right atrium and right ventricle are grossly normal in size. 3. No pericardial effusion. 4. Inferior vena cava not well demonstrated. CONCLUSIONS: 1. Technically difficult study. 2. No significant valvular abnormality evident. 3. Hyperdynamic left ventricle with estimated ejection fraction greater than 75%. cc: MD Galindo Cunningham MD
[2018-07-11] MEDS: XOPENEX NEB INH SCH ×6 (03:12→23:30)
[2018-07-11] MEDS: ATROVENT NEB INH SCH ×6 (03:12→23:30)
[2018-07-11] MEDS ORDERED: ATIVAN IV ONE (03:18)
[2018-07-11] MEDS: VASOTEC IV SCH ×3 (03:49→17:31)
[2018-07-11] MEDS: CLINIMIX E 4.25%-5% SOLUTION 1,000 ML IV SCH (03:50)
[2018-07-11] MEDS: ZOSYN 3.375 GM in NS 50 ML IV SCH ×4 (03:51→20:22)
[2018-07-11] MEDS ORDERED: D50W SYRINGE IV PRN (04:24)
[2018-07-11] MEDS ORDERED: CARDENE 20 MG/NS 20 MG/200 ML PIGGYBACK IV SCH (05:00)
[2018-07-11 05:11] LABS: ALLEN TEST YES; BE -3.4 mmoll (-3.0-3.0); BLOOD TYPE ARTERIAL; HCO3-(ACT) 22.3 mmoll (20.0-26.0); METHB 0.9 % (0.0-1.5); O2(CT) 13.2 mL/dL (15.0-23.0); O2HB 96.9 % (95.0-99.0); PCO2(98.6) 36 mmHg (35-45); PO2(98.6) 118 mmHg (60-100); SAMPLE BLOOD; SAO2 99.5 % (95.0-100.0); THB 9.5 g/dL (11.5-17.4); pH(98.6) 7.38 (7.35-7.45)
[2018-07-11 05:12] LABS: MODALITY BI PAP
[2018-07-11 05:52] LABS: AGAP 19; ALB/GLOB RATIO 0.7; ALBUMIN 2.5 g/dL (3.5-5.0); ALKALINE PHOSPHATASE 82 U/L (32-122); BUN 10 mg/dL (8-22); CALCIUM 8.1 mg/dL (8.8-10.2); CHLORIDE 110 mmol/L (98-107); COSMO 303; CREATININE 0.9 mg/dL (0.7-1.2); ESTIMATED GFR > 60; GLUCOSE 238 mg/dL (70-104); GOT 23 U/L (10-34); GPT 41 U/L (10-44); MAGNESIUM 2.1 mg/dL (1.5-2.7); PHOSPHORUS 2.1 mg/dL (2.7-4.5); POTASSIUM 2.7 mmol/L (3.5-5.1); SODIUM 149 mmol/L (136-145); TCO2 20 mmol/L (25-35); TOTAL BILIRUBIN 0.29 mg/dL (0.20-1.00); TRIGLYCERIDES 259 mg/dL (39-160)
[2018-07-11 06:57] LABS: BASO# 0.06 X1000 (0.0-0.2); BASO% 0.9 % (0.0-0.8); EOS% 1.5 % (0.0-10.0); HEMATOCRIT 31.1 % (42.0-52.0); IMM GRAN# 0.38 X1000 (0.0-0.04); IMM GRAN% 5.8 % (0.0-0.5); LYMPH% 18.4 % (20.5-51.1); MCH 29.1 PG (27-31); MCHC 32.2 g/dL (33-37); MCV 90.4 FL (81-99); MONO# 0.73 X1000 (0.11-0.59); MONO% 11.2 % (1.7-9.3); MPV 11.4 FL (7.4-10.4); NEUT# 4.04 X1000 (1.4-6.5); NEUT% 62.2 % (42.2-75.2); PLT 208 X1000 (130-400); RBC 3.44 XMIL (4.7-6.1); RDW 15.5 % (11.5-14.5); WBC 6.51 X1000 (4.8-10.8)
[2018-07-11] MEDS ORDERED: HUMALOG SUBQ SCH (07:00)
[2018-07-11 07:24] LABS: EOS 1 % (1-10); LYMPHS 22 % (21-51); MONO 12 % (1-9); SEGS 65 % (42-75)
[2018-07-11] MEDS: VANCOMYCIN 2,000 MG in NS 500 ML IV SCH ×2 (07:48→17:21)
[2018-07-11] MEDS: HUMULIN R 100 UNIT in NS 99 ML IV SCH (07:48)
--- NOTE | 2018-07-11 08:17 | Diag Imaging Result Doc PS360 ---
EXAM: CHEST-PORTABLE INDICATION: critical pt TECHNIQUE: One view COMPARISON: 07/10/2018 FINDINGS: There has been interval placement of a left PICC line. The tip projects over the region of the atriocaval junction. Inspiration is suboptimal. Central infiltrates and pulmonary venous congestion appears to have improved at least somewhat during the interval. No new consolidation is identified. Cardiac silhouette is stable. IMPRESSION: Interval placement of left PICC line but improvement of pulmonary venous congestion and central infiltrates. Electronically signed by Emmett Turner 07/11/2018 8:15 AM
[2018-07-11] MEDS: D5 1/4 NS 1,000 ML IV SCH (09:56)
[2018-07-11 10:30] LABS: AGAP 16; BUN 11 mg/dL (8-22); CALCIUM 8.8 mg/dL (8.8-10.2); CHLORIDE 112 mmol/L (98-107); COSMO 307; CREATININE 0.9 mg/dL (0.7-1.2); ESTIMATED GFR > 60; GLUCOSE 272 mg/dL (70-104); PHOSPHORUS 2.2 mg/dL (2.7-4.5); SODIUM 150 mmol/L (136-145); TCO2 22 mmol/L (25-35)
[2018-07-11 10:31] LABS: POTASSIUM 2.2 mmol/L (3.5-5.1)
--- NOTE | 2018-07-11 10:36 | Diag Imaging Result Doc PS360 ---
EXAM: KUB ABDOMEN 07/11/2018 HISTORY: pancreatitis TECHNIQUE: KUB COMMENT: There is less bowel gas present generally than on the previous examination of 07/06/2018. Overall the appearance of the abdomen is nonspecific and there is gas in the rectum. No evidence for organomegaly or mass is present. IMPRESSION: Nonspecific abdomen. Electronically signed by Jose Pisano 07/11/2018 10:34 AM
--- NOTE | 2018-07-11 11:21 | CONSULTATION ---
DATE OF CONSULTATION: 07/11/2018 HISTORY OF PRESENT ILLNESS: Mr. Villanueva is 47 years old and I have been asked to see him because of question of encephalopathy. He is not able to provide history. History is taken from attentive at the bedside and from review of the available medical record. He has had periods of obtundation, being difficult to arouse, other periods of agitated behavior requiring sedation. At times, he has had some conversation with , which has seemed to be appropriate. There has not been complete unconsciousness. There has not been any focal neurologic feature to this. There is history of a single episode of blank stare for a minute or so approximately 10 years ago. That was attributed to "panic" according to because he was recovering from surgery. He has not had any other similar spells. He has never had a documented seizure. There is no history of stroke, serious head injury, syncope, altered awareness, other neurologic event. Ethanol intake has been relatively minimal to moderate at most. He presents with evidence of pancreatitis attributed to triglyceridemia. He has history of snoring and possible sleep apnea. He has required management with BiPAP here. Recent lab shows calcium 8.1, phosphorus 2.1, sodium 149, blood sugars 230s to 260s, mild anemia. He has not had brain imaging. He had temperature recorded 101.4 a few days ago and 100.2 last afternoon. He has been sedated this morning, receiving doses of haloperidol 2 mg, lorazepam 2 mg and morphine sulfate 2 mg. According to , he has home prescriptions for hydrocodone, which he uses fairly seldom, and there is no history of benzodiazepine use or of illicit drug use. On exam, Mr. Villanueva is supine, mostly still when not stimulated. With relatively moderate stimulation over the limbs, he has brisk withdrawal of each limb, squirms, turns his head away from the examiner, voluntarily tries to limit passive eyelid opening. He has full lateral eye movement with passive head turning. Pupils react to light. Corneal reflexes are present. Limb tone is symmetric. Plantar response is silent bilaterally. Right knee reflex is uncertain. He has 2+ reflexes at the left knee and at both ankles. 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 He was not attentive to sensory testing. He did not speak to me. He did not follow commands. He did not regard me or communicate otherwise. There is no meningismus. Head is unremarkable to palpation. IMPRESSION: Apparent global encephalopathy. Explanation is not certain, but there seems to be likely significant contribution from medication effect at the time of my exam. According to , he does not have tolerance for these medications, and he has opiates and benzodiazepines on board now. The history of staring spell many years ago is consistent with seizure, but may have been due to panic as reported. There is not history to suggest a chronic seizure disorder. His current behavior does not suggest seizure, but a subclinical seizure could account for some of the fluctuating awareness. I do not see evidence of increased intracranial pressure or of focal lesion. CT was planned yesterday, but agitation prevented that. If we can get simple noncontrast CT of the head done today, that will be a help. We might consider brain MRI later. I will order EEG to be done when practical. I do not have any urgent suggestion. Would try to limit sedatives if possible, but recent agitation did warrant the use of sedative medication. Further plans will depend on his clinical course. Thanks for asking Neurology to see Mr. Villanueva. cc: MD CHRISTIE Orellana III
[2018-07-11] MEDS: SODIUM CHLORIDE 0.9% INJ SCH (11:55)
[2018-07-11] MEDS: LOVENOX SUBQ SCH (11:56)
--- NOTE | 2018-07-11 14:07 | Diag Imaging Result Doc PS360 ---
EXAM: CT HEAD W/O CONTRAST 07/11/2018 HISTORY: encephalopathy TECHNIQUE: This exam was performed using automated exposure control, adjustment of mA or kV according to patient size, and/or use of iterative reconstruction technique. COMMENT: There is no evidence of mass effect, bleed, or abnormal extra-axial fluid collection. There is some motion artifact. A second acquisition of the upper portion of the brain was obtained due to the chest. Compared to 05/17/2018, there has been no appreciable change. IMPRESSION: No evidence of acute intracranial disease. Electronically signed by Jose Pisano 07/11/2018 2:04 PM
[2018-07-11 14:35] LABS: AGAP 15; BUN 10 mg/dL (8-22); CALCIUM 8.9 mg/dL (8.8-10.2); CHLORIDE 107 mmol/L (98-107); COSMO 298; CREATININE 0.8 mg/dL (0.7-1.2); ESTIMATED GFR > 60; GLUCOSE 283 mg/dL (70-104); PHOSPHORUS 2.2 mg/dL (2.7-4.5); POTASSIUM 3.3 mmol/L (3.5-5.1); SODIUM 145 mmol/L (136-145); TCO2 23 mmol/L (25-35)
[2018-07-11] MEDS: OFIRMEV 1000 MG/ISOTONIC SOLN 1,000 MG/100 ML BOTTLE IV PRN (17:01)
[2018-07-11] MEDS: LASIX IV SCH (17:57)
[2018-07-11] MEDS: THIAMINE 100 MG in NS 50 ML IV SCH (17:57)
[2018-07-11 18:07] LABS: AGAP 14; BUN 10 mg/dL (8-22); CHLORIDE 108 mmol/L (98-107); COSMO 302; CREATININE 0.8 mg/dL (0.7-1.2); ESTIMATED GFR > 60; GLUCOSE 293 mg/dL (70-104); PHOSPHORUS 2.4 mg/dL (2.7-4.5); POTASSIUM 2.3 mmol/L (3.5-5.1); SODIUM 147 mmol/L (136-145); TCO2 25 mmol/L (25-35)
[2018-07-11] MEDS: POTASSIUM CHLORIDE 40 MEQ/SWI 40 MEQ/100 ML IVPB IV SCH ×3 (19:12→22:28)
[2018-07-11] MEDS: M.V.I.-12 10 ML, FOLIC ACID 1 MG, MAGNESIUM SULFATE 1 GM, THIAMINE 100 MG in NS 1,000 ML IV SCH (20:22)
[2018-07-11 22:03] LABS: ESTIMATED GFR > 60
[2018-07-11 22:32] LABS: AGAP 14; BUN 11 mg/dL (8-22); CHLORIDE 109 mmol/L (98-107); COSMO 310; CREATININE 0.9 mg/dL (0.7-1.2); GLUCOSE 291 mg/dL (70-104); MAGNESIUM 1.7 mg/dL (1.5-2.7); PHOSPHORUS 2.3 mg/dL (2.7-4.5); SODIUM 151 mmol/L (136-145); TCO2 28 mmol/L (25-35)
[2018-07-11 22:37] LABS: POTASSIUM 2.5 mmol/L (3.5-5.1)
[2018-07-12] MEDS: CLINIMIX E 4.25%-5% SOLUTION 1,000 ML IV SCH ×2 (00:13→07:11)
[2018-07-12] MEDS: ATIVAN IV PRN ×3 (01:42→20:43)
[2018-07-12] MEDS: LASIX IV SCH ×3 (01:42→23:00)
[2018-07-12] MEDS: VASOTEC IV SCH ×3 (01:43→17:31)
[2018-07-12] MEDS: ZOSYN 3.375 GM in NS 50 ML IV SCH ×4 (01:49→20:43)
[2018-07-12 02:00] LABS: AGAP 13; BUN 11 mg/dL (8-22); CALCIUM 8.5 mg/dL (8.8-10.2); CHLORIDE 110 mmol/L (98-107); COSMO 310; CREATININE 0.9 mg/dL (0.7-1.2); ESTIMATED GFR > 60; GLUCOSE 264 mg/dL (70-104); PHOSPHORUS 2.5 mg/dL (2.7-4.5); POTASSIUM 2.6 mmol/L (3.5-5.1); SODIUM 152 mmol/L (136-145); TCO2 29 mmol/L (25-35)
[2018-07-12] MEDS: ATROVENT NEB INH SCH ×6 (03:25→23:02)
[2018-07-12] MEDS: XOPENEX NEB INH SCH ×6 (03:25→23:02)
[2018-07-12] MEDS: D5 1/4 NS 1,000 ML IV SCH (04:20)
[2018-07-12] MEDS: MORPHINE IV PRN ×4 (04:20→22:58)
[2018-07-12] MEDS: HALDOL IV PRN ×4 (04:20→22:59)
[2018-07-12 05:01] LABS: ALLEN TEST YES; BE 9.1 mmoll (-3.0-3.0); BLOOD TYPE ARTERIAL; METHB 0.9 % (0.0-1.5); O2(CT) 15.2 mL/dL (15.0-23.0); O2HB 96.8 % (95.0-99.0); PCO2(98.6) 40 mmHg (35-45); PO2(98.6) 116 mmHg (60-100); SAMPLE BLOOD; SAO2 99.7 % (95.0-100.0); pH(98.6) 7.52 (7.35-7.45)
[2018-07-12 05:02] LABS: MODALITY BI PAP
--- NOTE | 2018-07-12 05:27 | EEG REPORT ---
DATE: 07/11/2018 COMMENT: This is a digitally recorded EEG done portably in the ICU on a 47-year -old patient with altered mental state, question of subclinical seizure. FINDINGS: Record is often obscured by muscle contraction, head movement, and sweat artifact. Legible portions show poorly sustained 6-7 Hz rhythm posteriorly with uncertain reactivity to eye opening. The background contains low amplitude polymorphic and rhythmic theta across the frontal and central regions symmetrically. There was not definite variation to correlate with spontaneous drowsing or sleep. Activating procedures were not done. No epileptiform discharge was identified. INTERPRETATION: Abnormal electroencephalogram because of generalized slowing. CORRELATION: This is indicative of a diffuse encephalopathy and is nonspecific. The absence of epileptiform discharges on a single electroencephalogram does not exclude a clinical diagnosis of seizure, but there is nothing on this record to suggest seizure is contributing to his current state. cc: Goran Mcgowan III, MD MTDD
[2018-07-12 06:20] LABS: AGAP 15; BUN 9 mg/dL (8-22); CALCIUM 7.1 mg/dL (8.8-10.2); CHLORIDE 110 mmol/L (98-107); COSMO 308; CREATININE 0.8 mg/dL (0.7-1.2); ESTIMATED GFR > 60; GLUCOSE 235 mg/dL (70-104); MAGNESIUM 2.8 mg/dL (1.5-2.7); PHOSPHORUS 2.1 mg/dL (2.7-4.5); SODIUM 152 mmol/L (136-145); TCO2 27 mmol/L (25-35)
[2018-07-12] MEDS: HUMULIN R 100 UNIT in NS 99 ML IV SCH (06:38)
--- NOTE | 2018-07-12 07:06 | Diag Imaging Result Doc PS360 ---
EXAM: CHEST-PORTABLE 07/12/2018 HISTORY: respiratory failure TECHNIQUE: AP portable at 0501 COMMENT: The inspiration is suboptimal. The opacity which was present over the left base on 07/11/2018 appears to have improved somewhat although the costophrenic angle is not entirely included on the image. IMPRESSION: Improved left lower lobe or lingular atelectasis. Electronically signed by Jose Pisano 07/12/2018 7:03 AM
[2018-07-12] MEDS: VANCOMYCIN 2,000 MG in NS 500 ML IV SCH ×2 (07:11→17:30)
--- NOTE | 2018-07-12 07:15 | PULMONOLOGY CONSULTATION ---
DATE: 07/11/2018 REQUESTING PHYSICIAN: Dr. Kirk Patel. REASON FOR CONSULTATION: Respiratory failure. HISTORY OF PRESENT ILLNESS: Mr. Villanueva is a 47-year-old, white male with morbid obesity, dyslipidemia, and chronic back pain who presented to the emergency room at [facility] on 07/06/2018 with increasing abdominal pain. The patient underwent a CT scan of the abdomen and pelvis which revealed evidence of pancreatitis. The patient had extensive fatty changes in the liver. Intake sheet indicates occasional alcohol use but the amount that he drinks has been difficult to quantify. The patient underwent a followup CT scan on 07/08/2018 which revealed some worsening peripancreatic edema with trace ascites. His pancreatic enzymes have started to normalize. His oxygen requirements have increased. He has been transferred to [facility]. His course has been complicated by delirium. PAST MEDICAL HISTORY/PROBLEM LIST: 1. Obesity. 2. Dyslipidemia. 3. Hypertension. 4. Chronic back pain. 5. History of left ankle surgery. 6. Status post hernia repair. SOCIAL HISTORY: The patient smokes a pack a day since his teens. Occasional alcohol use noted. FAMILY HISTORY: Noncontributory to current presentation. REVIEW OF SYSTEMS: Cannot be obtained. PHYSICAL EXAMINATION: General: Reveals an obtunded but arousable male in no acute distress. Vital Signs: BP 164/78, heart rate 108, respiratory rate 28, oxygen saturation 96% on BiPAP. HEENT: Pupils are equal and reactive. He has no icteric sclerae. Oropharynx appears dry. Neck: Supple. Chest: Reveals shallow breath sounds bilaterally with crackles in the bases. Cardiac Examination: Increased rate, regular rhythm. Abdomen: Obese and soft. No bowel sounds present. Extremities: Reveal 1+ edema. LABORATORIES: Arterial blood gas on BiPAP reveals a pH of 7.38, pCO2 of 36, PO2 of 118. White blood count 6.51, hemoglobin 10.0, platelet count 208,000. Chest x-ray reveals pulmonary vascular congestion with possible mild improvement, with a new PICC line. Chemistries: Sodium 150, potassium 2.2, chloride 112, bicarbonate 12, BUN 11, creatinine 0.9. KUB reveals decreased bowel gas without overt pathology identified. IMPRESSION: A 47-year-old with obesity, hypertriglyceridemia, acute pancreatitis, tobacco use, acute hypoxemic respiratory failure, delirium, hypernatremia. The patient has pancreatitis but his numbers have normalized. Supposedly, he has plateaued in his illness and can be maintained off mechanical ventilation. However, he is critically ill and is at risk for intubation. His is at the bedside. This was discussed with her this morning. RECOMMENDATIONS: 1. Continue BiPAP for acute hypoxemic respiratory failure. 2. Initiate quarter normal saline with D5-W for hypernatremia. 3. Diuretic trial in an attempt to improve pulmonary status. 4. Continue insulin drip for uncontrolled diabetes mellitus, which I failed to mention above. Patient's hemoglobin A1c on admission was 11.5. 5. Agree with neurology evaluation for delirium. 6. Continue ICU monitoring. The patient is critically ill and is at risk for decompensation. Time spent in critical care, 1 hour. cc: Dixon Gresham MD
[2018-07-12 07:16] LABS: POTASSIUM 2.1 mmol/L (3.5-5.1)
--- NOTE | 2018-07-12 07:35 | GENERAL SURGERY CONSULTATION ---
DATE: 07/11/2018 TIME: 7:25 p.m. HISTORY OF PRESENT ILLNESS: Mr. Villanueva is 47 years old, was admitted on 07/06/2018 with abdominal pain and nausea for 3 days. At the time of his admission he was determined to have a white count of 15,000 and a lipase of 890. A CT scan showed acute pancreatitis. PAST MEDICAL HISTORY: Pertinent for hyperlipidemia, hypertension, and chronic back pain. PAST SURGICAL HISTORY: The surgical history includes a hernia repair, left ankle surgery, and tumor removed from his neck. SOCIAL HISTORY: He smokes a pack per day. He does drink alcohol. MEDICATIONS: Listed. ALLERGIES: Sulfa. REVIEW OF SYSTEMS: As noted above. PHYSICAL EXAMINATION: General: He is currently sedated and unresponsive. Vitals: His heart rate is 102, blood pressure is 171/94. He is on CPAP, with an O2 sat of 97%. Respiratory: He has bilateral breath sounds. His breaths are shallow. Heart: Regular rate and rhythm. Abdomen: Distended. On palpation he has no response to pain. His abdomen is firm. : Mathews catheter is in place. Extremities: He has no peripheral edema. DIAGNOSTICS/LABS: His white count is 6500, hemoglobin 10, hematocrit 31. He has 62% neutrophils. The pH is 7.38, pCO2 is 36, pO2 118, his base deficit is 3.4 on 50% BiPAP. Sodium is 147, potassium 2.3, carbon dioxide is 25, BUN is 10, creatinine 0.8, glucose is in the 290 range. Triglyceride level is down to 259. Lipase level is down to 47. His triglycerides upon admission were 1783. His CT scans and ultrasound suggest biliary sludge. ASSESSMENT AND PLAN: This gentleman is ill from acute pancreatitis, the etiology uncertain. It certainly could be hypertriglyceridemia or alcohol or gallbladder disease. He does apparently have sludge in the gallbladder. We will consider him for cholecystectomy at some point, but currently he is not well. In order to undergo a cholecystectomy he will have to recover from his pancreatitis and then be considered for a cholecystectomy in the future. cc: Justino Bravo MD
--- NOTE | 2018-07-12 08:27 | CONSULTATION ---
DATE OF CONSULTATION: 07/11/2018 REFERRING PHYSICIAN: Dr. Lai Cowan. PRIMARY CARE DOCTOR: Dr. Adán Dougherty. REASON FOR CONSULTATION: Pancreatitis. HISTORY OF PRESENT ILLNESS: Mr. Villanueva is a 47-year-old male, who was admitted on 07/06/2018 at [facility] with abdominal pain and nausea. He had imaging done which showed evidence of acute pancreatitis and severe diffuse hepatic steatosis. The patient is noted to have elevated lipase of 890 and high white count of 15.8. During the course of the hospitalization, he was transferred to [facility] for further workup. His pancreatitis during the hospital stay was complicated with acute respiratory failure, volume overload, encephalopathy. During the course of hospital stay, he was initially given fluids but subsequently he has been diuresed. His lipase has normalized today. Gastroenterology consult was called for further management. All of the history obtained from the patient's records and the nursing staff. The patient was sleepy at the time of the interview. PAST MEDICAL HISTORY: Hypertension, hyperlipidemia, chronic back pain. PAST SURGICAL HISTORY: Hernia repair, left ankle surgery, and tumor removed from his neck. SOCIAL HISTORY: He smokes a pack a day. He does drink alcohol. ALLERGIES: Sulfa. REVIEW OF SYSTEMS: Unobtainable. MEDICATIONS IN THE HOSPITAL: 1. Clinimix and dextrose 5%. 2. Normal saline at 60 mL/hour. 3. Vasotec. 4. Lovenox. 5. Haldol. 6. Sliding scale Humulin R. 7. Ipratropium bromide. 8. Xopenex. 9. Ativan. 10. Morphine. 11. Nicardipine. 12. NicoDerm patch. 13. Tylenol. 14. Zofran. 15. Protonix. 16. Vancomycin. 17. Zosyn. 18. He has been getting IV Lasix pushes and potassium replacement. PHYSICAL EXAMINATION: Vital Signs: Temperature 99.1, pulse 106, respiratory 24 , blood pressure 150/97, saturating 92% on BiPap. General Appearance: He is moderately well nourished lying in bed and currently sleepy. HEENT: Positive pallor. No icterus. BiPap face mask in place. Neck: Supple. Abdomen: Obese. Protuberant. No guarding. Extremities: No cyanosis or clubbing. Neurologic: He is sleepy at the moment. He had just received sedatives from the nursing staff. LABORATORY DATA: His hemoglobin and hematocrit is 10 and 31.1, white count of 6.5, platelet count of 208,000. ABG showing pH 7.38, pCO2 of 36, PO2 of 118, and this is on 50% of BiPAP. Sodium 140, potassium 3.3, chloride 107, bicarb 23, anion gap 15, BUN of 10, creatinine 1.0, glucose of 283. Calcium is 8.9, phosphorus 2.2, magnesium 2.0. Total bilirubin is 0.29. Direct of 0.1. IgG 32, AST 23, ALT 41, alkaline phosphatase 80, total protein 6, albumin of 2.5. Triglycerides 259; on admission, it was 1783. His lipase on admission was 890 (this has dropped to 47 now) and acetone is positive. Blood culture x2 negative at 48 hours from 07/09/2018. Abdominal x-ray done today showed nonspecific abdomen. Head CT was done today which showed no evidence of any acute intracranial disease. IMPRESSION AND PLAN: 1. Acute pancreatitis. On admission, ultrasound of the abdomen was done which showed evidence of sludge in the gallbladder and the common bile duct measured about 6 mm. This could have contributed to pancreatitis. We will consult General Surgery. He may be candidate for cholecystectomy before discharge. There is question of alcohol use; Will start Thiamine and MVI QD. 2. Diffuse hepatic steatosis and fatty infiltration likely secondary to fatty liver disease. This is likely secondary to obesity and possibly alcohol. We will start him on thiamine and multivitamin once daily. Diabetes. He is 3. Diabetes Mellitus: Continue on sliding scale insulin. This is being managed by primary team. 4. Encephalopathy. Neurology has been consulted. He also has been receiving Haldol, Ativan, and morphine. 5. Hypertriglyceridemia, which is improving. 6. Protein calorie malnutrition. He is on Clinimix. 7. Gastrointestinal prophylaxis with PPIs. 8. Deep venous thrombosis prophylaxis with Lovenox. 9. Respiratory failure. Pulmonary edema. Volume overload. He is currently being managed by Dr. Gresham. Above plan discussed with the patient and nurse at bedside, and I answered all questions. cc: MD Av Alves MD [facility]
--- NOTE | 2018-07-12 09:06 | PROGRESS NOTE ---
DATE: 07/11/2018 SUBJECTIVE: The patient was admitted on 07/06/2018, had abdominal pain for about 3 days, a 47- year-old, presented to the emergency room on 07/06/2018, three-day history of abdominal pain, slowly increased over time, and accompanied by nausea. He did have 3 bowel movements the day before. Denied any black or bloody stools. He was noted to have white count of 15,000. Lipase was 890. CT of the abdomen pelvis performed revealed acute pancreatitis, diffuse hepatic steatosis. Still has his gallbladder. PAST MEDICAL HISTORY: Hypertension, hyperlipidemia, chronic back pain. Apparently, blood sugars were high. He did not know he had diabetes. He did get a lumbar epidural shot, I think, around the 08 of June. Still in a good deal of pain. Chest x-ray on 07/09: Somewhat shallow inspiration, associated bibasilar and perihilar atelectasis. Follow up chest x-ray on 07/10: Severely low lung volumes, worsening central infiltrates bilaterally, right greater than left, worsening cardiomegaly. OBJECTIVE: Vital signs: Maximum temperature was 100.2 degrees. Temp today 99. Pulse 105, respirations 20, blood pressure 109/80. Blood pressures have been between 109 to 189/73-101. Pupils: Are equal and round. Lungs: Clear in all lung wiggins. Cardiovascular: Regular rhythm and rate without murmur or S3. Abdomen: Soft. Skin: Warm and dry. Urine output: 9 L. ASSESSMENT AND PLAN: 1. Severe acute pancreatitis likely related to hypertriglyceridemia and some degree of multiorgan system failure, primary respiratory failure. Appears to have some volume overload and showing signs of pulmonary venous hypertension. 2. Acute respiratory failure, using BiPAP with some confusion. Continue BiPAP and continue diuresis. 3. Encephalopathy. Suspect multifactorial. No history of alcohol by his 's report. Nasogastric tube is normal. CT of the head unremarkable. We will try to avoid sedating medications. Will continue Haldol, Ativan, and to be careful with morphine. 4. New onset diabetes mellitus type 2. Continue follow pattern sugars. Looking at his lab, his bicarb was 28. Anion gap is 19. Creatinine 0.9. So, we will continue present orders. The patient was given Vasotec 1.25 mg IV q.8, nicotine patch 21 mg daily, Protonix 40 mg IV q.12. He is on vancomycin and piperacillin. No growth from blood cultures from 07/09. Make sure we supplement his potassium. cc: Lai Cowan MD
[2018-07-12] MEDS: POTASSIUM CHLORIDE 40 MEQ/SWI 40 MEQ/100 ML IVPB IV SCH ×2 (09:43→13:23)
[2018-07-12] MEDS: M.V.I.-12 10 ML, FOLIC ACID 1 MG, MAGNESIUM SULFATE 1 GM, THIAMINE 100 MG in NS 1,000 ML IV SCH (09:43)
--- NOTE | 2018-07-12 09:51 | PROGRESS NOTE ---
DATE: 07/12/2018 SUBJECTIVE: Mr. Villanueva had quite a bit of agitation and delirium. He required four-point restraint. A little calmer today. says he has been able to talk to her, and he is resting right now or sleeping. OBJECTIVE: Temperature 98.5, pulse 96, respirations 20, blood pressure 168/95. Pupils are equal and round. Lungs are clear in all lung wiggins. Cardiovascular: Regular rhythm and rate without murmur or S3. Abdomen is soft. Skin is warm and dry. Urine output 1300 mL. Blood sugars 216, 249. 273. Chest x-ray from this morning: Improved left lower lobe or lingular atelectasis. ASSESSMENT AND PLAN: 1. Patient ill from acute pancreatitis, etiology uncertain. Could be hypertriglyceridemia, alcohol, or gallbladder disease. He has sludge in his gallbladder and Dr. Bravo is following. Consider for cholecystectomy at some point, but have to recover from his pancreatitis. 2. Hypoxemic respiratory failure. Continue BiPAP. He has quite a bit of agitation so is requiring some benzodiazepines which will have to be careful with. 3. Delirium. This may be multifactorial. The report was that he did not drink much alcohol. 4. Diabetes mellitus. Type 2. Poorly controlled. Continue sliding scale. Sugars running in the 200s. 5. Dyslipidemia. 6. Chronic back pain. On looking at his orders, I do not see any change at this point. Looking at today's lab, we will check amylase and lipase again in the morning. His potassium was low at 2.1' we have been supplementing will give her some more potassium. His magnesium was 2.8 which is okay. cc: Lai Cowan MD
[2018-07-12 10:30] LABS: AGAP 13; BUN 11 mg/dL (8-22); CHLORIDE 110 mmol/L (98-107); COSMO 313; ESTIMATED GFR > 60; GLUCOSE 274 mg/dL (70-104); MAGNESIUM 1.8 mg/dL (1.5-2.7); PHOSPHORUS 2.8 mg/dL (2.7-4.5); SODIUM 153 mmol/L (136-145); TCO2 30 mmol/L (25-35)
[2018-07-12 10:31] LABS: CALCIUM 8.9 mg/dL (8.8-10.2)
[2018-07-12 10:32] LABS: POTASSIUM 2.5 mmol/L (3.5-5.1)
[2018-07-12] MEDS: D5W 1,000 ML IV SCH (11:11)
[2018-07-12] MEDS: OFIRMEV 1000 MG/ISOTONIC SOLN 1,000 MG/100 ML BOTTLE IV PRN (11:43)
--- NOTE | 2018-07-12 11:43 | PROGRESS NOTE ---
DATE: 07/12/2018 ATTENDING PHYSICIAN: Dr. Cowan. SUBJECTIVE: Patient is currently resting in bed. I spoke to the patient's at bedside. I spoke to the patient's nursing staff. The patient is currently sedated. In the morning, the patient had woken up, but he was agitated per the records. No fever reported this morning. Yesterday, he did have a temperature a 100.4 degrees. He had a bowel movement, liquid brown today. OBJECTIVE: Vital signs: Temperature of 98.5 degrees, pulse of 96, respiratory rate 20, blood pressure 160/95, saturating 92% on BiPAP. General Appearance: Obese, lying in bed, in no acute distress. HEENT: Positive pallor. No icterus. Face mask in place. Neck: Supple. Abdomen: Protuberant, obese, mild distention noted. Extremities: No cyanosis or clubbing. Neuro gonzalez: He is sedated. LABS: 1. ABG showing pH of 7.52, pCO2 40, pO2 116, bicarb of 32. This is on BiPAP at 40% FiO2. Sodium 150, potassium 2.5, chloride 110, bicarb 30, anion gap 13, BUN of 11, creatinine 1, glucose of 274, calcium is 8.9, and phosphorus 2.8, magnesium 1.8. Blood culture x2 negative right after 2 days from 07/09/2018. 2. Chest x-ray done this morning showed improved left lower lobe or lingular atelectasis. IMPRESSION AND PLAN: 1. Pancreatitis likely secondary from gallbladder sludge and/or hypertriglyceridemia. I had discussion with the patient's family at bedside. They deny any history of alcoholism. In the interim, we will continue him on intravenous fluids. We will keep him on banana bag, thiamine, and intravenous Clinimix. 2. Deep venous thrombosis prophylaxis on Lovenox. 3. Anemia. Continue to watch for now, transfuse as needed. 4. Diabetes. He is on sliding scale insulin. He is on diabetic ketoacidosis protocol. 5. Pulmonary edema. He is on Lasix twice daily for today, per Dr. Gresham. 6. Respiratory failure. If stable, but still requiring a high amount of oxygen. 7. Agitation and delirium. He is on Haldol and Ativan. 8. Hypertriglyceridemia. This needs to be treated per the primary care physician. 9. Gastrointestinal prophylaxis with proton-pump inhibitors. 10. Deep venous thrombosis prophylaxis with Lovenox. 11. He is on broad-spectrum antibiotics for now. 12. The above plans with the patient's family at bedside and the nursing staff, and questions were answered. cc: MD Dr. Farhat Roe
[2018-07-12] MEDS: SODIUM CHLORIDE 0.9% INJ SCH (11:44)
[2018-07-12] MEDS: PROTONIX IV SCH ×2 (11:44→22:59)
[2018-07-12] MEDS: LOVENOX SUBQ SCH (11:44)
--- NOTE | 2018-07-12 13:05 | PROGRESS NOTE ---
DATE: 07/12/2018 LOCATION: ICU bed 7. SUBJECTIVE: Mr. Villanueva is supine, intubated, moving each limb spontaneously, turning his head from the left to the right. He has twisted the oxygen mask partially off of his face. OBJECTIVE: On exam, he moved each limb briskly in response to minor noxious stimulation. He grumbled and groaned but did not speak words that I could understand and did not communicate otherwise. He did not follow commands. Extraocular movements are full with passive head turning. Pupils react to light. Corneal reflexes are symmetric. Head is unremarkable. Neck is supple. Plantar response is uncertain bilaterally. IMPRESSION: Global encephalopathy. There is no evidence of increased intracranial pressure. EEG showed generalized slowing but no evidence of seizure and no focal findings. I still wonder if this might be primarily medication effect. I do not have any new suggestion from neurology standpoint today. Thanks for asking me to see Mr. Villanueva. cc: Goran Mcgowan III, MD
[2018-07-12 14:15] LABS: AGAP 12; BUN 11 mg/dL (8-22); CALCIUM 9.1 mg/dL (8.8-10.2); CHLORIDE 109 mmol/L (98-107); COSMO 309; CREATININE 1.2 mg/dL (0.7-1.2); ESTIMATED GFR > 60; GLUCOSE 171 mg/dL (70-104); MAGNESIUM 1.9 mg/dL (1.5-2.7); PHOSPHORUS 3.4 mg/dL (2.7-4.5); SODIUM 154 mmol/L (136-145); TCO2 33 mmol/L (25-35)
[2018-07-12 14:17] LABS: POTASSIUM 2.5 mmol/L (3.5-5.1)
[2018-07-12] MEDS: THIAMINE 100 MG in NS 50 ML IV SCH (17:30)
[2018-07-12 18:08] LABS: CALCIUM 8.4 mg/dL (8.8-10.2); CREATININE 1.3 mg/dL (0.7-1.2); PHOSPHORUS 4.6 mg/dL (2.7-4.5); POTASSIUM 2.9 mmol/L (3.5-5.1)
[2018-07-12 21:58] LABS: CALCIUM 8.2 mg/dL (8.8-10.2); CREATININE 1.5 mg/dL (0.7-1.2); PHOSPHORUS 5.3 mg/dL (2.7-4.5); POTASSIUM 2.8 mmol/L (3.5-5.1)
[2018-07-13] MEDS: ZOSYN 3.375 GM in NS 50 ML IV SCH ×4 (01:59→20:12)
[2018-07-13] MEDS: VASOTEC IV SCH ×3 (01:59→18:44)
[2018-07-13] MEDS: D5W 1,000 ML IV SCH (03:08)
[2018-07-13] MEDS: ATIVAN IV PRN (03:09)
[2018-07-13] MEDS: ATROVENT NEB INH SCH ×6 (03:28→23:32)
[2018-07-13] MEDS: XOPENEX NEB INH SCH ×6 (03:28→23:32)
--- NOTE | 2018-07-13 03:51 | PULMONOLOGY PROGRESS NOTE ---
DATE: 07/12/2018 SUBJECTIVE: The patient's is at the bedside. She reports he did speak with her earlier. He currently is on a Ventimask. OBJECTIVE: Vital Signs: Maximum temperature in the last 24 hours 100.4, current temperature 99.8 degrees. BP 149/87, heart rate 111, respiratory rate 24, oxygen saturation 97%. He has mild work of breathing. He will open his eyes to voice but is not conversant with this practitioner. HEENT: Pupils are equal and reactive. Oropharynx is slightly dry. Neck: Supple. Chest: Reveals coarse rhonchi without wheezing. Cardiac: Increased rate. Regular rhythm. Abdomen: Mildly distended with rare bowel sounds. Extremities: Reveal trace edema. LABORATORIES: Chest x-ray reveals shallow inspiration with decreased atelectasis at the left base. Sodium 153, potassium 2.5, chloride 110, bicarbonate 30, BUN 11, creatinine 1.0. Arterial blood gas, pH 7.52, pCO2 of 40, PO2 of 116. IMPRESSION: The patient is a 47-year-old with obesity, new onset diabetes mellitus, hypertriglyceridemia, tobacco use, acute pancreatitis, delirium, hypernatremia with acute hypoxemic respiratory failure. Hemodynamically he is doing well and is diuresing. Chest x-ray is improving. Hopefully mechanical ventilation can be avoided. RECOMMENDATIONS: 1. Continue to cycle BiPAP and oxygen as needed for hypoxemic respiratory failure. 2. Discontinue quarter normal saline/D5W and we will begin D5 for his hypernatremia given failure to improve with prior fluids. 3. Maintain intake and output balanced if possible. 4. Adjust his insulin drip. He currently is not being escalated and his blood sugars are remaining greater than 200. 5. Continue neurology management of delirium. 6. Continue ICU monitoring. His prognosis remains guarded and he is at risk for decompensation. Time spent in critical care was 30+ minutes. cc: Dixon Gresham MD
--- NOTE | 2018-07-13 04:30 | GENERAL SURGERY PROGRESS NOTE ---
DATE: 07/12/2018 Mr. Villanueva's temp is 100.5 degrees. His heart rate 111, blood pressure 130/70. He is moving around some, but does not respond to questioning appropriately. Intake is 2943. Output is 6425. His abdomen was softer than it was yesterday. He has metabolic alkalosis now. His carbon dioxide is up to 30. Potassium is still low at 2.5. Sodium is up to 153. ASSESSMENT: I will continue to follow along. His acidosis seems to be improved. cc: Justino Bravo MD
[2018-07-13 04:37] LABS: BASO# 0.07 X1000 (0.0-0.2); BASO% 0.9 % (0.0-0.8); EOS# 0.12 X1000 (0.0-0.7); EOS% 1.5 % (0.0-10.0); HEMATOCRIT 31.5 % (42.0-52.0); HEMOGLOBIN 9.7 g/dL (14.0-18.0); IMM GRAN# 0.42 X1000 (0.0-0.04); IMM GRAN% 5.1 % (0.0-0.5); LYMPH# 0.85 X1000 (1.2-3.4); LYMPH% 10.3 % (20.5-51.1); MCH 29.1 PG (27-31); MCHC 30.8 g/dL (33-37); MCV 94.6 FL (81-99); MONO% 6.1 % (1.7-9.3); MPV 10.8 FL (7.4-10.4); NEUT# 6.26 X1000 (1.4-6.5); NEUT% 76.1 % (42.2-75.2); PLT 155 X1000 (130-400); RBC 3.33 XMIL (4.7-6.1); RDW 16.5 % (11.5-14.5); WBC 8.22 X1000 (4.8-10.8)
[2018-07-13] MEDS: HUMULIN R 100 UNIT in NS 99 ML IV SCH (04:46)
[2018-07-13 04:48] LABS: ALLEN TEST YES; BLOOD TYPE ARTERIAL; HCO3-(ACT) 33.5 mmoll (20.0-26.0); METHB 0.7 % (0.0-1.5); O2HB 95.2 % (95.0-99.0); PO2(98.6) 78 mmHg (60-100); SAMPLE BLOOD; SAO2 97.7 % (95.0-100.0); THB 11.9 g/dL (11.5-17.4); pH(98.6) 7.45 (7.35-7.45)
[2018-07-13 04:49] LABS: PCO2(98.6) 53 mmHg (35-45)
[2018-07-13 04:50] LABS: MODALITY BI PAP
[2018-07-13 04:59] LABS: ALB/GLOB RATIO 0.6; ALBUMIN 2.2 g/dL (3.5-5.0); CALCIUM 8.7 mg/dL (8.8-10.2); FREE T4 0.79 ng/dL (0.93-1.70); MAGNESIUM 2.1 mg/dL (1.5-2.7); POTASSIUM 3.7 mmol/L (3.5-5.1); TOTAL BILIRUBIN 0.34 mg/dL (0.20-1.00); TOTAL PROTEIN 5.7 g/dL (6.3-8.3); TSH 1.22 uIUmL (0.27-4.20)
[2018-07-13] MEDS: MORPHINE IV PRN ×3 (06:14→23:25)
[2018-07-13] MEDS: HALDOL IV PRN (06:14)
[2018-07-13] MEDS: VANCOMYCIN 2,000 MG in NS 500 ML IV SCH (06:14)
[2018-07-13] MEDS: CLINIMIX E 4.25%-5% SOLUTION 1,000 ML IV SCH (06:26)
--- NOTE | 2018-07-13 07:44 | Diag Imaging Result Doc PS360 ---
CHEST-PORTABLE - 07/13/2018 INDICATION: respiratory failure COMPARISON: 07/12/2018 FINDINGS: Stable left PICC line in good position. Stable low lung volumes. No focal infiltrates, pneumothorax, or pleural effusion. Heart size is top normal. IMPRESSION: Low lung volumes but no acute disease. Electronically signed by Richard Higgins 07/13/2018 7:42 AM
--- NOTE | 2018-07-13 07:49 | ED EKG INTERP ---
This chart was entered by Nancy Gilmore Scribe, acting as scribe for Justino Wilson MD. EKG Interpretation - EKG Time of EKG reading by physician:: 06:24 EKG Read and Signed by:: Justino Wilson EKG Interpretation (*Must complete 3 of following elements*): Normal Rate: 115 Rhythm: sinus tachycardia with occ pvc [place]: normal QRS: normal [place] Interval: normal ST Wave: normal Attestation - Physician/ TITI Attestation Patient care was provided by Advanced Practice Provider:: No The physician spent face to face time with patient:: Yes Advanced Practice Provider documentation review:: Supervising physician onsite and consulted in the evaluation and care of this patient. The physician did have a face to face encounter with the patient. This chart was documented by the indicated scribe, (Nancy Gilmore Scribe) and accurately reflects the services I performed and decisions made by me, Justino Wilson MD, as attested by the provider's signature.
[2018-07-13] MEDS: M.V.I.-12 10 ML, FOLIC ACID 1 MG, MAGNESIUM SULFATE 1 GM, THIAMINE 100 MG in NS 1,000 ML IV SCH (08:25)
[2018-07-13] MEDS: PROTONIX IV SCH ×2 (12:04→23:26)
[2018-07-13] MEDS: LOVENOX SUBQ SCH (12:04)
--- NOTE | 2018-07-13 12:32 | PROGRESS NOTE ---
DATE: 07/13/2018 OBJECTIVE: Neurological: Mr. Villanueva is awake. He is temporarily alert and following simple commands consistently. Speech is dysarthric but easily understood. There is no definite language error on brief bedside testing. He has good tone and power symmetrically in the limbs. Neck: Supple. ASSESSMENT AND PLAN: No new thoughts from Neurology standpoint. This appears to be global encephalopathy with some definite improvement in the last 24 hours. Medication effect still seems most likely. I do not see evidence of increased intracranial pressure, STONE DRESSER mass lesion, intracranial infection, seizures. Thanks for asking Neurology to see Mr. Villanueva. cc: Goran Mcgowan III, MD
[2018-07-13] MEDS ORDERED: HUMULIN R SUBQ SCH (16:00)
[2018-07-13] MEDS ORDERED: D5W 1,000 ML IV SCH (16:15)
--- NOTE | 2018-07-13 16:20 | PROGRESS NOTE ---
DATE: 07/13/2018 SUBJECTIVE: Mr. Villanueva is still confused but his stated he is improving, having more episodes where he seems to be aware of her surroundings and what is going on. She said he remembered that she had some water in her car and so she was encouraged by his improvement. OBJECTIVE: Vital Signs: Temperature 98.7 degrees, pulse 106, respirations 19, blood pressure 142/75. Lungs: Are clear in all lung wiggins anterolateral. Cardiovascular: Regular rate without murmur or S3. Abdomen: Soft., Skin: Warm and dry. DIAGNOSTIC DATA: Urine output 6700 mL. Blood sugar 181,163. ASSESSMENT/PLAN: 1. Some delirium. Dr. Mcgowan is following. Appears to have global encephalopathy. Explanation not certain. Seems to be likely significant from medication effect. He does not have tolerance for these medications and he has opiates and benzodiazepines on board. Apparently, he had a staring spell consistent with a seizure many years ago and had been due to a panic attack by report. So possibility of chronic seizure disorder but subclinical seizure could account for signs of fluctuating awareness but seems to still have delirium but improving. 2. Continues to use BiPAP and supplemental oxygen. 3. Hypoxemic respiratory failure. Because of hyponatremia, he was getting D5 W and blood pressure seems to be maintained. 4. Diabetes mellitus. We will change him to pattern sugars and subcu insulin. 5. Acute pancreatitis which seems to have improved clinically. He is hungry. We will see if we can feed him. We will check an amylase and lipase again tomorrow as well as liver enzymes. His creatinine has gone up to 2.0. We will watch his renal function closely. cc: Lai Cowan MD
--- NOTE | 2018-07-13 17:03 | GASTROENTEROLOGY PROGRESS NOTE ---
DATE: 07/13/2018 SUBJECTIVE: No acute overnight events. Afebrile. The patient reports improving abdominal pain. He was able to tolerate lunch this afternoon without nausea or vomiting. He denies abdominal pain currently. OBJECTIVE: Vital signs: Temperature 98.7, heart rate 106, blood pressure 142/ 75, respiratory rate 19 and oxygen saturation of 96% on 5 L of oxygen nasal cannula. PHYSICAL EXAM: General: Awake and alert. No acute distress. HEENT: Extraocular motor intact. Mucous membranes are moist. Neck: No JVD. No lymphadenopathy. Cardiac: Regular rate and rhythm. No murmurs, rubs or gallops. Pulmonary: Bibasilar crackles. No wheezing. Abdomen: Obese and nontender. Nondistended. Normoactive bowel sounds. No rebound or guarding. Extremities: Lower extremities have no cyanosis, clubbing or edema. Neurological: Nonfocal. LABORATORY: No labs today. Yesterday, hemoglobin 9.7, white count 8.22, platelet count 155, sodium 149 from 151 on 07/12 at 8:00 a.m., creatinine 2.0 from 0.8 on 07/11, LFTs from 07/12 showed an AST of 35, albumin 2.2, ALT 30, alk phos 81, total bilirubin 0.34. Vitamin B12 greater than 2,000, folate 19.6, TSH 1.32. Chest x-ray shows low lung volumes but no acute disease. CURRENT MEDICATIONS: Enalapril, Lovenox, [id number] running at 60 mL per hour, Haldol as needed, sliding scale insulin, bupropion nebulizer, Ativan as needed, morphine as needed , nicotine patch, acetaminophen, Zofran as needed, pantoprazole 40 mg IV q. 12 hours, Zosyn, vitamins, and banana bag. ASSESSMENT AND PLAN: Mr. Villanueva is a 47-year-old gentleman who was admitted for evaluation and treatment of acute pancreatitis thought to be related to biliary sludge with possible contribution from hypertriglyceridemia. He was also found to have new onset diabetes. His course has been complicated by hypoxic respiratory failure, delirium encephalopathy, and hypernatremia. #Pancreatitis At this point, there has not been any obvious sign or culture that shows active infection. The patient could certainly have low grade fever with acute pancreatitis. I would recommend discontinuing antibiotics and the following clinical course given the patient's clinical improvement. The patient does not have a significant alcohol history that would make me suspect that his pancreatitis is related to alcohol. Other possibilities other than triglycerides and biliary sludge include autoimmune pancreatitis which can be evaluated with an IGG4 antibody. Surgery is following for evaluation for possible cholecystectomy. We will defer timing to surgery. #Hypernatremia Recommend continued correction of the patient's hypernatremia as well as encouraging p.o. fluid intake. #JUAN The patient has had a rising creatinine over the last several days suspicious for acute kidney injury in the setting of contraction alkalosis. I would also recommend that we transition his medications by mouth, if possible, as the patient is taking p.o. currently. For #Hypoxic respiratory failure, pulmonary is following. Appreciate recommendations. #IDDM2: The patient is currently on sliding scale insulin. #Delirium/encephalopathy. Neurological was consulted. I suspect that his delirium is related to medications versus toxic metabolic. We will continue to follow the patient. Please call with any questions or concerns. [facility]ITAL[facility]
[2018-07-13] MEDS: HUMULIN R SUBQ SCH (20:27)
[2018-07-14] MEDS: ZOSYN 3.375 GM in NS 50 ML IV SCH ×4 (03:00→20:21)
[2018-07-14] MEDS: CLINIMIX E 4.25%-5% SOLUTION 1,000 ML IV SCH ×2 (03:25→20:10)
[2018-07-14] MEDS: VASOTEC IV SCH ×2 (03:25→08:31)
[2018-07-14] MEDS: ATROVENT NEB INH SCH ×6 (03:32→23:41)
[2018-07-14] MEDS: XOPENEX NEB INH SCH ×6 (03:32→23:41)
--- NOTE | 2018-07-14 04:50 | GENERAL SURGERY PROGRESS NOTE ---
DATE: 07/13/2018 Mr. Villanueva is clinically improved. He is now communicating. Denies abdominal pain. PHYSICAL EXAMINATION: Vital signs: He is afebrile, heart rate is 106, blood pressure 174/100. Abdomen: Firm, but he denies tenderness. LABORATORIES: White count remains normal. His BUN is 17, creatinine has gone up to 2.0. ASSESSMENT: 1. Acute kidney injury. 2. Acute pancreatitis, resolving. PLAN: I would not recommend any operative intervention of his gallbladder until he is completely well over his acute illness currently. We will follow along. Dr. Gilmore is covering the weekend. cc: Justino Bravo MD
[2018-07-14 05:18] LABS: BASO# 0.02 X1000 (0.0-0.2); BASO% 0.2 % (0.0-0.8); EOS# 0.17 X1000 (0.0-0.7); EOS% 1.7 % (0.0-10.0); HEMATOCRIT 29.9 % (42.0-52.0); HEMOGLOBIN 9.3 g/dL (14.0-18.0); IMM GRAN# 0.15 X1000 (0.0-0.04); IMM GRAN% 1.5 % (0.0-0.5); LYMPH% 13.6 % (20.5-51.1); MCH 28.7 PG (27-31); MCHC 31.1 g/dL (33-37); MCV 92.3 FL (81-99); MONO# 0.62 X1000 (0.11-0.59); MPV 10.9 FL (7.4-10.4); PLT 137 X1000 (130-400); RBC 3.24 XMIL (4.7-6.1); RDW 15.8 % (11.5-14.5); WBC 10.26 X1000 (4.8-10.8)
[2018-07-14 05:21] LABS: ALLEN TEST YES; BE 3.7 mmoll (-3.0-3.0); BLOOD TYPE ARTERIAL; HCO3-(ACT) 27.8 mmoll (20.0-26.0); METHB 1.4 % (0.0-1.5); O2(CT) 13.6 mL/dL (15.0-23.0); O2HB 95.6 % (95.0-99.0); PCO2(98.6) 47 mmHg (35-45); PO2(98.6) 92 mmHg (60-100); SAMPLE BLOOD; SAO2 98.9 % (95.0-100.0)
[2018-07-14 05:25] LABS: MODALITY BI PAP
[2018-07-14] MEDS: MORPHINE IV PRN ×3 (05:35→16:20)
[2018-07-14] MEDS: HUMULIN R SUBQ SCH ×4 (06:07→20:21)
[2018-07-14 06:36] LABS: ALB/GLOB RATIO 0.6; CALCIUM 7.9 mg/dL (8.8-10.2); CREATININE 4.1 mg/dL (0.7-1.2); MAGNESIUM 1.7 mg/dL (1.5-2.7); POTASSIUM 3.2 mmol/L (3.5-5.1); TOTAL BILIRUBIN 0.31 mg/dL (0.20-1.00); TOTAL PROTEIN 5.6 g/dL (6.3-8.3)
--- NOTE | 2018-07-14 08:12 | Diag Imaging Result Doc PS360 ---
EXAM: CHEST-PORTABLE INDICATION: respiratory failure TECHNIQUE: One view COMPARISON: 07/13/2018 FINDINGS: The left PICC line is stable. Lung volumes remain somewhat low. No new consolidation is identified. Cardiac silhouette is stable. IMPRESSION: Essentially stable chest. Electronically signed by Emmett Turner 07/14/2018 8:10 AM
[2018-07-14] MEDS: D5W 1,000 ML IV SCH ×2 (09:24→20:22)
--- NOTE | 2018-07-14 09:47 | PROGRESS NOTE ---
DATE: 07/14/2018 Mr. Villanueva is having less confusion. He is able to get some food down and breathing comfortably. He is resting comfortably and sleeping this morning, but he is easy to arouse. OBJECTIVE: VITAL SIGNS: Temp 99.8 degrees, pulse 113, respirations 22, blood pressure 167/90. HEENT: Pupils are equal and round. LUNGS: Clear in all lung wiggins. CARDIOVASCULAR: Regular rhythm and rate without murmur or S3. ABDOMEN: Soft. SKIN: Warm and dry. Urine output is 3300 mL. Blood sugars are 160, 302, 304. His chest x-ray, essentially stable chest. The left PICC line is stable. Lung volumes remain somewhat low. No new consolidation. ASSESSMENT AND PLAN: 1. Delirium is improved. Global encephalopathy seems to be more alert. He is not in restraints today. 2. Hypoxemic respiratory failure. Is still getting supplementary oxygen but does not require the BiPAP. Still use BiPAP as needed. 3. Diabetes mellitus. Sugars running in the 300s. He is eating. May add a 70/30 twice a day to see if that will help. 4. Acute pancreatitis which seems to have improved. Lab from this morning: White count 10,260, hematocrit is 29, platelet count 137,000. Sodium 141, potassium 3.2, chloride 99, BUN 28, creatinine 4.1. Now, his creatinine has jumped up. It was 1.3 on admission, 1.2. Hopefully this is prerenal on review of his labs. He is getting Clinimix at 50 mL an hour. He is on a nicotine patch. Protonix 40 mg q.12. Getting Zosyn 3.375 grams q.6 hours. Note on previous echo, which is a technically difficult study, aortic valve was not well imaged. Appeared to be free of structural abnormality. Peak gradient was 23 mmHg. The left ventricle appears hyperdynamic and the ejection fraction is 75% so, I think we should be good to give him some normal saline. We are watching his sodium which was 154, but I think for his renal function, we are going to need to give him some more volume. cc: Lai Cowan MD
[2018-07-14] MEDS: PROTONIX IV SCH ×2 (10:36→23:01)
[2018-07-14] MEDS: LOVENOX SUBQ SCH (10:36)
--- NOTE | 2018-07-14 14:10 | PROGRESS NOTE ---
DATE: 07/14/2018 SUBJECTIVE: Mr. Raul Villanueva has acute pancreatitis and the etiology is unsure. He has multiple risk factors for acute pancreatitis, including what appears to be sludge in his gallbladder. Dr. Bravo has seen him in consultation because of his gallbladder and certainly medically he needs to improve before any elective resection. This morning he has a diet. He seems confused. Is hemodynamically stable in our ICU. OBJECTIVE: Vital Signs: His heart rate is 108, blood pressure 130/62, O2 saturation 91% on 3 L nasal cannula O2. His temperature is 99.8 degrees. LABORATORY: His white blood cell count is 10. On CT scan there was no evidence of infection of his pancreas. Hematocrit is 30%. Electrolytes showed that he has an increasing creatinine. On 07/12/2018 it was 1.3, on 07/13 4.1. His glucose has been steadily elevated. Liver function tests are essentially normal. A chest x-ray shows a PICC line in place. Poor inspiration. No consolidation noted. PLAN: The patient's electrolyte abnormalities are being corrected. His creatinine is being watched, but it is getting worse. The patient is on sliding scale insulin to control his elevated sugars. He continues to be confused. Plan is to continue supportive care. GI medicine has seen the patient. He is also being cared for by our hospitalists and our pulmonary critical care physicians. cc: Fiordaliza Gilmore MD
--- NOTE | 2018-07-14 15:55 | Diag Imaging Result Doc PS360 ---
EXAM: CHEST-PORTABLE INDICATION: Possible PICC line displacement TECHNIQUE: One view COMPARISON: 07/14/2018 FINDINGS: The left PICC line does appear to have been retracted somewhat. However, the tip still projects over the region of the lower SVC. Lung volumes remain low. No new consolidation is identified. Cardiac silhouette is stable. IMPRESSION: Retraction of the PICC line. However, the tip still projects over the region of the lower SVC. Electronically signed by Emmett Turner 07/14/2018 3:52 PM
[2018-07-14] MEDS: ICAR-C PO SCH (20:20)
[2018-07-14] MEDS: HUMULIN 70/30 SUBQ SCH (22:34)
--- NOTE | 2018-07-15 00:54 | GASTROENTEROLOGY PROGRESS NOTE ---
DATE: 07/14/2018 SUBJECTIVE: The patient is resting in bed. He is sedated, but he was able to wake up and answer simple questions. He is drowsy because he received morphine. His was at bedside. The patient had a low-grade temperature of 99.8. OBJECTIVE: Vital Signs: Temperature 99.8 degrees, pulse rate 101, respiratory rate 18, blood pressure 146/70, saturating 93% on 3 L nasal cannula. General Appearance: Moderately-built, moderately-nourished, lying in bed, in no acute distress. HEENT: Positive pallor. No icterus. Face mask in place. Neck: Supple. Abdomen: Obese. Distention in the abdomen noted. No guarding. Extremities: No cyanosis or clubbing. Neurologic: He was in drowsy, was able to answer some questions. LABS: Hemoglobin and hematocrit 9.3 and 29.9, white count of 10.2, platelet count of 137,000. Sodium of 141, potassium 3.2, chloride 99, bicarb 25, anion gap 17, BUN of 28, glucose of 281. Calcium is 7.9. Magnesium 1.7. Total bilirubin is 0.31, AST 61, ALT 51, alkaline phosphatase 170, total protein 5.6, albumin of 2. ABG showing pH 7.40, pCO2 47, PO2 92. This is on BiPAP at 40% FiO2. Blood cultures x2 negative at 48 hours from 07/09/2018. Chest x-ray done today showed retraction of the PICC line. The tip still projects over the region of the lower SVC. IMPRESSION AND PLAN: 1. Pancreatitis, likely a combination of gallbladder sludge and hypertriglyceridemia. We will continue to watch him closely. We will continue on diabetic diet and IV fluids. 2. Diabetes. This is being managed by the primary care team. 3. Malnutrition. He has been drowsy today and slightly confused. He continues on Clinimix for now. 4. Gallbladder sludge. Surgery has been consulted. Most likely, he will need a cholecystectomy once he recovers from respiratory issues. 5. Obesity. Aware. Patient needs to watch his calories as an outpatient. 6. Elevated liver enzymes. Could be secondary to fatty liver or gallbladder sludge. Will continue to watch. 7. Gastrointestinal prophylaxis with PPIs. 8. Anemia. Continue to watch for now. The above plan was discussed with the patient and family at bedside. All questions were answered. cc: MD Adán Roe MD
[2018-07-15] MEDS: ZOSYN 3.375 GM in NS 50 ML IV SCH ×4 (01:53→20:41)
[2018-07-15] MEDS: MORPHINE IV PRN ×3 (01:54→14:35)
[2018-07-15] MEDS: ATROVENT NEB INH SCH ×6 (02:59→23:30)
[2018-07-15] MEDS: XOPENEX NEB INH SCH ×6 (02:59→23:30)
[2018-07-15 05:16] LABS: ALLEN TEST YES; BE -0.8 mmoll (-3.0-3.0); BLOOD TYPE ARTERIAL; HCO3-(ACT) 24.1 mmoll (20.0-26.0); METHB 0.7 % (0.0-1.5); O2(CT) 17.9 mL/dL (15.0-23.0); O2HB 90.3 % (95.0-99.0); PO2(98.6) 64 mmHg (60-100); SAMPLE BLOOD; SAO2 93.2 % (95.0-100.0); THB 14.1 g/dL (11.5-17.4); pH(98.6) 7.23 (7.35-7.45)
[2018-07-15 05:26] LABS: MODALITY CANNULA; PCO2(98.6) 68 mmHg (35-45)
[2018-07-15] MEDS: HUMULIN R SUBQ SCH ×4 (06:21→20:40)
[2018-07-15 07:03] LABS: CALCIUM 8.2 mg/dL (8.8-10.2); CREATININE 5.2 mg/dL (0.7-1.2); MAGNESIUM 2.1 mg/dL (1.5-2.7); POTASSIUM 3.2 mmol/L (3.5-5.1)
[2018-07-15] MEDS: D5W 1,000 ML IV SCH ×2 (07:59→20:42)
[2018-07-15] MEDS: HUMULIN 70/30 SUBQ SCH ×2 (08:00→20:41)
[2018-07-15] MEDS: CENTRUM SILVER PO SCH (08:00)
[2018-07-15] MEDS: ICAR-C PO SCH ×2 (08:00→20:43)
--- NOTE | 2018-07-15 08:07 | Diag Imaging Result Doc PS360 ---
EXAM: CHEST-PORTABLE INDICATION: respiratory failure TECHNIQUE: One view COMPARISON: 07/14/2018 FINDINGS: The left PICC line is in stable position. Inspiration remains suboptimal. No new consolidation is identified. Cardiac silhouette is stable. IMPRESSION: Stable chest. Electronically signed by Emmett Turner 07/15/2018 8:05 AM
--- NOTE | 2018-07-15 09:12 | PROGRESS NOTE ---
DATE: 07/15/2018 SUBJECTIVE: He is not in restraints. He still has times where he seems to be disoriented and in some delirium but overall doing better. He is tolerating eating some food. He did pull his PICC line a little bit so we will probably need to get that reinserted this morning and a chest x-ray shows the PICC line is still in adequate placement. OBJECTIVE: Vital Signs: The temperature is 99.7 degrees, pulse 114, respirations 25, blood pressure 140/91. HEENT: Pupils are equal. Lungs: Clear in all lung wiggins. Cardiovascular Examination: Regular rhythm and rate without murmur or S3. Abdomen: Soft. Nontender. Extremities: No pedal edema. Is and Os: Urine output is 5 L. Lab: From yesterday, white count was 10,260, hematocrit was 29, platelet count 137,000. Chemistry: Sodium 141, potassium 3.2, chloride 99, BUN 37, creatinine 5.2. Note, his creatinine continues to climb. Blood sugar 281, 337, 329, 314, 363. Chest x-ray, PICC line in stable position. ASSESSMENT AND PLAN: 1. Pancreatitis, likely a combination of gallbladder sludge and hypertriglyceridemia. Continue to watch. 2. Diabetes. Continue to adjust insulin as he is eating. Sugar is still running a little high. 3. Malnutrition. Encourage oral intake. 4. Gallbladder sludge. Surgery consulted. Most likely, he will need a cholecystectomy once he improves. 5. Obesity. 6. Elevated liver enzymes secondary to fatty liver and gallbladder sludge. Continue to follow these. 7. Continue gastrointestinal prophylaxis with proton pump inhibitors. 8. Anemia. This remains stable. 9. Creatinine is going up. Continue present fluids. 10. Note hematocrit is 29 and hemoglobin 9.3 which have been stable. Continue to supplement the potassium. Looking over his orders, I do not see any change at this point. cc: Lai Cowan MD
[2018-07-15 09:59] LABS: URINE SOURCE CATH
[2018-07-15 10:05] LABS: BILIRUBIN URINE NEGATIVE (NEGATIVE); BLOOD URINE SMALL (NEGATIVE); COLOR YELLOW; GLUCOSE URINE 500 mg/dL (NEGATIVE); KETONE URINE NEGATIVE (NEGATIVE); LEUKOCYTES URINE NEGATIVE (NEGATIVE); NITRITE URINE NEGATIVE (NEGATIVE); PH URINE 5.5; PROTEIN URINE 30 mg/dL (NEGATIVE); TURBIDITY URINE HAZY (CLEAR); UROBILINOGEN URINE NORMAL (NORMAL)
[2018-07-15 10:32] LABS: UR CREAT RANDOM < 4.2 mg/dL (14-26); UR SODIUM 13 mmoll
[2018-07-15] MEDS: PROTONIX IV SCH (10:32)
[2018-07-15] MEDS: LOVENOX SUBQ SCH (10:32)
[2018-07-15 10:42] LABS: UR EPITHELIAL CELLS <10 /HPF (<10); URINE BACTERIA NEGATIVE /HPF; URINE RBC <10 /HPF (<10); URINE WBC <10 /HPF (<10)
[2018-07-15 10:43] LABS: URINE YEAST NONE SEEN
--- NOTE | 2018-07-15 11:10 | GASTROENTEROLOGY PROGRESS NOTE ---
DATE: 07/15/2018 SUBJECTIVE: Patient resting in bed. He was sleeping when I saw him, but was able to wake up on command. He was still drowsy. He had a low-grade temperature yesterday. He was able to eat some of his meal last night. He has soft, brown stools. OBJECTIVE: Vital Signs: Temperature of 99.7, pulse rate of 97, respiratory rate of 19, blood pressure 113/63, saturating 97% on BiPAP. General appearance: He is obese, lying in bed in no acute distress. HEENT: Pale conjunctiva. No icterus. Face mask in place. Neck: Supple. Abdomen: Obese. Discomfort in the pelvic region. No rebound. Extremities: No cyanosis or clubbing. Neurologic: He was drowsy, but was able to answer some of my questions. IMAGING AND LABORATORY DATA: Hemoglobin and hematocrit are 9.3 and 29.9 from yesterday. Yesterday, the ABG was 7.23, pCO2 of 68, PO2 of 64. Sodium 141, potassium 3.2, chloride 99, bicarb 26, anion gap 16, BUN of 37, creatinine of 5.2, which is getting worse, glucose of 363, calcium is 8.2. Magnesium 2.1. Lipase of 38, amylase of 6. Chest x-ray done today showed stable chest. No new consolidations identified. IMPRESSION AND PLAN: 1. Pancreatitis is improved, the likely cause of hypertriglyceridemia and gallbladder sludge. Dr. Bravo is on board. Likely, he will get a cholecystectomy once he recovers completely from pancreatitis and multiple organ injury. 2. Acute kidney injury. Dr. Funes is on board. 3. Diabetes. He is on sliding scale. His blood sugar is still high. 4. Obesity. Aware. 5. Elevated liver enzymes, likely secondary to fatty liver and gallbladder sludge. Will continue to follow. Will check a hepatitis panel and MONAE level. 6. Gastrointestinal prophylaxis with proton pump inhibitors. 7. Anemia. Continue to watch for now, and transfuse as needed. 8. We will continue Iron-C twice daily. 9. Deep venous thrombosis prophylaxis with Lovenox. 10. Malnutrition. He is on Clinimix. I will continue Clinimix until he is able to eat orally. The above plans were discussed with the patient and the nursing staff, and all questions were answered. cc: MD Adán Roe MD
[2018-07-15 13:08] LABS: IRON SATURATION 55 %; TIBC 103 ug/dL; TOTAL IRON 57 ug/dL (53-167); UNBOUND IRON 46 ug/dL (112-346)
[2018-07-15] MEDS: CLINIMIX E 4.25%-5% SOLUTION 1,000 ML IV SCH (15:32)
[2018-07-15] MEDS: ZOFRAN IV PRN (16:20)
[2018-07-16] MEDS: PROTONIX IV SCH ×3 (00:01→23:15)
[2018-07-16] MEDS: ZOSYN 3.375 GM in NS 50 ML IV SCH ×4 (02:11→19:53)
[2018-07-16] MEDS: ATROVENT NEB INH SCH ×6 (03:06→23:48)
[2018-07-16] MEDS: XOPENEX NEB INH SCH ×6 (03:06→23:48)
[2018-07-16] MEDS: MORPHINE IV PRN ×2 (04:43→08:30)
[2018-07-16 05:06] LABS: ALLEN TEST YES; BE 1.4 mmoll (-3.0-3.0); BLOOD TYPE ARTERIAL; METHB 1.3 % (0.0-1.5); O2(CT) 12.7 mL/dL (15.0-23.0); O2HB 95.9 % (95.0-99.0); PO2(98.6) 111 mmHg (60-100); SAMPLE BLOOD; SAO2 99.5 % (95.0-100.0); THB 9.3 g/dL (11.5-17.4)
[2018-07-16 05:11] LABS: MODALITY BI PAP; PCO2(98.6) 58 mmHg (35-45)
[2018-07-16 05:42] LABS: CALCIUM 8.1 mg/dL (8.8-10.2); POTASSIUM 3.3 mmol/L (3.5-5.1)
[2018-07-16] MEDS: HUMULIN R SUBQ SCH ×4 (06:30→20:26)
--- NOTE | 2018-07-16 07:12 | Diag Imaging Result Doc PS360 ---
EXAM: CHEST-PORTABLE 07/16/2018 HISTORY: respiratory failure TECHNIQUE: AP portable at 0526 COMMENT: There is a PICC line on the left with its tip in the superior vena cava. There is some clearing of the left lower lobe compared to 07/15/2018, otherwise there has been no significant change. IMPRESSION: Improved atelectasis and/or pneumonia on the left. Electronically signed by Jose Pisano 07/16/2018 7:10 AM
[2018-07-16] MEDS: D5W 1,000 ML IV SCH (09:07)
[2018-07-16] MEDS: HUMULIN 70/30 SUBQ SCH ×2 (09:08→15:36)
[2018-07-16] MEDS: ICAR-C PO SCH (09:08)
[2018-07-16] MEDS: CENTRUM SILVER PO SCH (09:08)
--- NOTE | 2018-07-16 09:39 | PROGRESS NOTE ---
DATE: 07/16/2018 SUBJECTIVE: Mr. Villanueva is less confused, but he is staying pretty lethargic. His would like me to cut back on his morphine and any sedating medications. OBJECTIVE: Vital signs: He remains afebrile. Temperature 98.2 degrees, pulse 90, respirations 23, blood pressure 135/62. Pupils: Are equal and round. Lungs: Clear in all lung wiggins. Cardiovascular: Regular rate without murmur or S3. Abdomen: Distended, but much less tender in the left upper quadrant. Extremities: No edema. Urine output: 4300 mL. DIAGNOSTIC DATA: Blood sugars have been 363, 319, and 387, so still rather high. Chest x-ray from this morning: Improved atelectasis or pneumonia on the left. ASSESSMENT AND PLAN: 1. Pancreatitis, improved, likely cause is hypertriglyceridemia and gallbladder sludge. Dr. Bravo is following. Likely will need a cholecystectomy, once he recovers completely from pancreatitis and multiple organ injury. 2. Acute kidney injury. His creatinine has continued to climb. I have asked Dr. Funes to evaluate. Will continue present fluids. 3. Diabetes mellitus type 2. Sugars are running high. Will adjust his insulin. 4. Obesity, aware. 5. Elevated liver enzymes likely secondary to fatty liver and gallbladder sludge. So will continue to follow. Will check his transaminases again in the morning. Also check lipase and amylase again. 6. Continue his proton-pump inhibitors for gastrointestinal prophylaxis. 7. Anemia, remains stable. 8. Acute kidney injury. Note that his blood work from this morning: Creatinine has gone up to 6.0. His would like me to back down on sedation. He has had periods of delirium and has required four-point restraint. cc: Lai Cowan MD
--- NOTE | 2018-07-16 10:40 | PROGRESS NOTE ---
DATE: 07/16/2018 Mr. Villanueva has continued to improve mentally. He has been awake, alert, attentive , conversing appropriately with staff and family. reports that, at times, he seems to be nearly back to himself. I do not have any new thoughts or new suggestions from Neurology standpoint. I suspect this was a combination encephalopathy with significant contribution from medications. I hope he will continue to improve. Thanks for asking Neurology to see Mr. Villanueva. cc: MD CHRISTIE Orellana III
[2018-07-16] MEDS: NS 1,000 ML IV SCH ×2 (10:52→23:15)
[2018-07-16] MEDS: LOVENOX SUBQ SCH (10:53)
--- NOTE | 2018-07-16 11:16 | GASTROENTEROLOGY PROGRESS NOTE ---
DATE: 07/16/2018 SUBJECTIVE: The patient is resting in bed. His is at the bedside. He is slightly drowsy. He continues on the BiPAP. He denies any nausea or vomiting. He is moving his bowels. PHYSICAL EXAMINATION: Vital Signs: Temperature of 98.2 degrees, pulse rate of 90, respiratory rate of 23, blood pressure of 135/62, saturating 99% on BiPAP. General Appearance: Obese , lying in bed, in no acute distress. HEENT: Pale conjunctivae. There is no icterus. BiPAP in place. Neck: Supple. Abdomen: Obese, soft. Discomfort in the pelvic region. No rebound or guarding. Extremities: Mild lower extremity edema. Neurologic: He is drowsy, was able to wake up on commands and answer simple questions. LABS: His ABG is showing a pH of 7.3, pCO2 of 58, PO2 111. This is on BiPAP with 50% FiO2. Sodium of 138, potassium 3.3, chloride 97, bicarb of 26, anion gap of 15, BUN of 42, creatinine of 6, glucose of 303, calcium is 8.1. Percent saturation of iron is 55%, ferritin is 3911. We will check hemochromatosis genotype. Liver enzymes are slightly high. They have not been checked for the last 2 days. His amylase is 6, lipase of 38. His blood cultures x2 are negative at 5 days. Chest x-ray was done today which showed improved atelectasis or pneumonia on the left. IMPRESSION AND PLAN: 1. Pancreatitis is improved. His amylase and lipase are normalized. Likely cause or etiology is hypertriglyceridemia and gallbladder sludge. Dr. Bravo is following. Likely will need a cholecystectomy once he completely recovers from pancreatitis and multiple organ injury. 2. Respiratory failure. This is being managed by the primary care team. He is on BiPAP at the moment. 3. History of smoking. The patient is counseled to quit smoking completely. 4. Acute kidney injury. Dr. Funes is on board. His creatinine is worsening. 5. Type 2 diabetes. He is on sliding scale insulin. 6. Obesity. Patient is counseled to lose weight. 7. Elevated liver enzymes. We will follow up the chronic liver disease workup. 8. Iron overload. We will check hemochromatosis genotype. 9. Anemia. Continue to watch for now. We will continue with a multivitamin once daily. We will discontinue the Iron C as the patient has iron overload. 10. Gastrointestinal prophylaxis with proton pump inhibitors. 11. Bowel regimen to continue. 12. Malnutrition. We will continue on Clinimix until he is able to tolerate and improve oral feeding. 13. The above plans were discussed with the patient and family at bedside. All questions were answered. Please call us with any further questions. cc: MD Adán Roe MD
--- NOTE | 2018-07-16 11:16 | NEPHROLOGY CONSULTATION ---
DATE: 07/16/2018 REASON FOR ADMISSION: Abdominal pain associated with nausea and vomiting for 3 days prior to admission. REASON FOR CONSULT: Acute kidney injury. CONSULTING PHYSICIAN: Dr. Cowan. HISTORY OF PRESENT ILLNESS: Mr. Villanueva is a 47-year-old white male who is currently in ICU bed 7. He had been admitted for increased abdominal pain at [facility] and was transferred to [facility] due to his acute pancreatitis and encephalopathy. The patient has been in the ICU. His pancreatic enzymes are slowly improving. This has been followed by Dr. Davison. During his hospital stay the patient had decompensated with increased work of breathing. This is followed by Dr. Gresham. Also during patient's hospital stay he had developed encephalopathy with continued altered mental status and confusion. Dr. Mcgowan had been consulted. The patient also presents with sludge to his gallbladder. He has been evaluated by Dr. Bravo indicating that this would need to be evaluated and cared for after this hospitalization. The patient currently is a poor historian. He is attempting to climb out of bed at this time. He does deny any specific pain. PAST MEDICAL HISTORY: He does admit to having hypertension. No kidney disease , hyperlipidemia, chronic back pain. PAST SURGICAL HISTORY: Noted from the chart, hernia repair, left ankle surgery , and tumor removed from his neck. SOCIAL HISTORY: He is . His is attentive to his care. Smokes a pack a day and does drink alcohol. 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 ALLERGIES: Listed as sulfa, causing rash. HOME MEDICATIONS: Have been revealed to be losartan, clonidine, Antivert, amlodipine, atorvastatin. REVIEW OF SYSTEMS: Unable to obtain strictly from the patient. Also obtained from the chart and the nurses with pertinent positives listed above in the HPI. VITAL SIGNS: His most recent vital signs, temperature 98.8 degrees, blood pressure 97/53, heart rate 105, respirations are 28. He is currently on 50% BiPAP. Last recorded saturation 100%. He has had 4,140 in, 2,700 out to Mathews catheter. LABS: Sodium 138, potassium 3.3, chloride 97, CO2 26, BUN 42, creatinine 6, glucose 303. His anion gap is 15. His calcium is 8.1. Previous hemoglobin 9.3 on the . ABGs, pH 7.3, CO2 58, PO2 111, bicarb 26, on 50% BiPAP. PHYSICAL EXAMINATION: General: This is a 47-year-old white male. He appears slightly confused, agitated, in no acute distress. Skin: Warm and dry. HEENT: Normocephalic, atraumatic. Conjunctivae pale pink. He has PAUL. Mucous membranes are dry. Neck: Supple. Trachea midline. No evidence of JVD. Cardiovascular: Regular rate and rhythm. There is no murmur or gallop appreciated, though he is slightly tachycardic. Lungs: Clear to auscultation anteriorly. Equal excursion. Abdomen: Slightly distended. Tender on palpation. Hypo bowel sounds. Genitourinary: Mathews catheter is in place. He has adequate urine out. Extremities: Have trace edema. No clubbing or cyanosis. Integumentary: Patient has tattoos to bilateral upper extremities. ASSESSMENT AND PLAN: 1. Acute kidney injury. This may be multifactorial. Patient has been on renal dosed antibiotics and on IV fluids for his acute pancreatitis. He still continues with adequate urinary output. We will check urine electrolytes and a renal ultrasound. We have discussed with the patient that upon further evaluation he may need temporary hemodialysis for bridging until his renal status improves during his hospital stay. Unsure if patient understood this conversation. We will discuss with his this a.m. 2. Electrolytes and acid-base balance. These remain stable. 3. Anemia. This is low but acceptable. 4. Abdominal pain. The patient is receiving Dilaudid, though they have been requested to decrease this amount. 5. Acute pancreatitis. The patient is NPO. He has be receiving IV fluid hydration with close monitoring in the ICU. 6. Hypertension. Patient has been receiving medications IV p.r.n. as indicated. I would like to thank you for allowing us to follow with this patient. Dictated by KT Lizarraga for Harlan Funes MD Face to face encounter, data reviewed, discussed with Ovidio Manley on 07/16/18. I agree with the above assessment and plan of care. cc: KT Lizarraga MD [facility]
[2018-07-16 11:26] LABS: UR CREAT RANDOM 73.8 mg/dL (14-26); UR PROT RANDOM 52.5 mg/dL
[2018-07-16 11:33] LABS: HEPATITIS PROFILE ACUTE SEE COMMENTS
[2018-07-16] MEDS: SODIUM CHLORIDE 0.9% INJ SCH ×2 (12:18→23:16)
[2018-07-16] MEDS: CLINIMIX E 4.25%-5% SOLUTION 1,000 ML IV SCH (12:18)
--- NOTE | 2018-07-16 12:27 | PULMONOLOGY PROGRESS NOTE ---
DATE: 07/16/2018 SUBJECTIVE: The patient is arousable. The patient's nurse reports he was more alert this morning, but has received low-dose morphine, which has subsequently been discontinued. Oral intake is markedly diminished. OBJECTIVE: Vital Signs: Blood pressure 121/56, heart rate 109, respiratory rate 21. He has been afebrile for the last 24 hours. Oxygen saturation 92% on Venturi mask. HEENT: Pupils are equal and reactive. Oropharynx is clear. Neck: Supple. Chest: Reveals shallow breath sounds bilaterally, but relatively clear. Abdomen: Mildly distended with dullness to percussion. Cardiac exam: Increased rate, regular rhythm. Extremities: Trace edema. DIAGNOSTIC STUDIES: Chest x-ray reveals partial clearing of the left lower lobe with minimal atelectasis in the base. LABORATORY DATA: Arterial blood gas: pH 7.30, pCO2 58, PO2 111, on BiPAP. White blood count not obtained today. Chemistry: Sodium 138, potassium 3.3, chloride 97, bicarbonate 26, BUN 42, creatinine 6.0, glucose 303. IMPRESSION: A 42-year-old with obesity, new-onset diabetes mellitus, hypertriglyceridemia, tobacco use, acute pancreatitis, acute hypoxemic and acute hypercapnic respiratory failure, acute renal failure, and delirium. Etiology for the delirium and acute renal failure is not completely clear. RECOMMENDATIONS: 1. Continue to cycle BiPAP and oxygen for acute respiratory failure. 2. Continue Clinimix for nutrition. Agree with normal saline given acute renal failure. 3. Continue current antibiotic regimen. Might consider change given his acute renal failure. 4. Awaiting ultrasound of the abdomen report. 5. Continue ICU monitoring. cc: Dixon Gresham MD
[2018-07-16] MEDS: OFIRMEV 1000 MG/ISOTONIC SOLN 1,000 MG/100 ML BOTTLE IV PRN (14:58)
--- NOTE | 2018-07-16 15:23 | Diag Imaging Result Doc PS360 ---
US RENAL 2 (RETROPER) COMPLETE - 07/16/2018 INDICATION: decreased renal function TECHNIQUE: COMPARISON: None FINDINGS: The exam is very challenging due to the patient's condition and body size. The right kidney is normal. The right kidney measures 12 x 6.4 x 8.1 cm. The left kidney is completely obscured. The urinary bladder is collapsed by a Mathews catheter and otherwise normal. IMPRESSION: No abnormality visible. Electronically signed by Richard Higgins 07/16/2018 3:21 PM
--- NOTE | 2018-07-17 00:04 | GENERAL SURGERY PROGRESS NOTE ---
DATE: 07/16/2018 SUBJECTIVE AND OBJECTIVE: Mr. Villanueva was less alert today. Seems more confused. His oxygen requirements have gone up. He is now on a 50% mask. His last temp was 99 degrees. His temp earlier in the day was at 101.4. Heart rate 96. Blood pressure 102/52. His abdomen was rather firm, but he is not complaining about it. His BUN has gone up to 42, creatinine up to 6.0. ASSESSMENT: He continues quite ill, with respiratory difficulties, as well as now acute kidney injury. PLAN: We will continue to follow along, but he is certainly not ready for any operative intervention. cc: Justino Bravo MD
[2018-07-17] MEDS: ZOSYN 3.375 GM in NS 50 ML IV SCH (01:55)
[2018-07-17] MEDS: ATROVENT NEB INH SCH ×6 (03:49→23:30)
[2018-07-17] MEDS: XOPENEX NEB INH SCH ×6 (03:49→23:30)
[2018-07-17 05:20] LABS: BE -1.9 mmoll (-3.0-3.0); BLOOD TYPE ARTERIAL; HCO3-(ACT) 23.4 mmoll (20.0-26.0); METHB 1.4 % (0.0-1.5); O2(CT) 13.8 mL/dL (15.0-23.0); O2HB 94.3 % (95.0-99.0); PO2(98.6) 89 mmHg (60-100); SAMPLE BLOOD; SAO2 97.9 % (95.0-100.0); THB 10.3 g/dL (11.5-17.4); pH(98.6) 7.25 (7.35-7.45)
[2018-07-17 05:26] LABS: MODALITY BI PAP; PCO2(98.6) 59 mmHg (35-45)
[2018-07-17 06:02] LABS: ALBUMIN 2.2 g/dL (3.5-5.0); CALCIUM 8.4 mg/dL (8.8-10.2); CREATININE 6.1 mg/dL (0.7-1.2); PHOSPHORUS 7.8 mg/dL (2.7-4.5)
[2018-07-17 06:17] LABS: BASO# 0.01 X1000 (0.0-0.2); BASO% 0.1 % (0.0-0.8); EOS# 0.13 X1000 (0.0-0.7); EOS% 1.6 % (0.0-10.0); HEMATOCRIT 26.5 % (42.0-52.0); IMM GRAN# 0.06 X1000 (0.0-0.04); IMM GRAN% 0.7 % (0.0-0.5); LYMPH# 0.88 X1000 (1.2-3.4); LYMPH% 10.6 % (20.5-51.1); MCHC 30.2 g/dL (33-37); MONO% 8.4 % (1.7-9.3); MPV 11.1 FL (7.4-10.4); NEUT# 6.52 X1000 (1.4-6.5); NEUT% 78.6 % (42.2-75.2); PLT 166 X1000 (130-400); RBC 2.76 XMIL (4.7-6.1); RDW 14.7 % (11.5-14.5)
[2018-07-17 06:27] LABS: ALB/GLOB RATIO 0.5; ALBUMIN 1.9 g/dL (3.5-5.0); DIRECT BILIRUBIN 0.2 mg/dL (0.00-0.20); TOTAL BILIRUBIN 0.32 mg/dL (0.20-1.00); TOTAL PROTEIN 5.8 g/dL (6.3-8.3)
--- NOTE | 2018-07-17 06:43 | Diag Imaging Result Doc PS360 ---
EXAM: CHEST-PORTABLE HISTORY: respiratory failure TECHNIQUE: Portable chest single view COMPARISON: 07/16/2018 FINDINGS: Poor inspiratory effort. There are infiltrates in the lower left lung on the current study. The right lung remains clear. No pleural effusions identified. IMPRESSION: Development of the left sided pneumonia. Follow-up PA and lateral recommended. Electronically signed by Jose Luis Guillen 07/17/2018 6:41 AM
[2018-07-17] MEDS: CLINIMIX E 4.25%-5% SOLUTION 1,000 ML IV SCH (06:46)
[2018-07-17] MEDS: HUMULIN 70/30 SUBQ SCH ×2 (06:48→16:58)
[2018-07-17] MEDS: HUMULIN R SUBQ SCH ×4 (06:48→20:59)
[2018-07-17] MEDS: ZYVOX 600 MG/D5W 600 MG/300 ML IVPB IV SCH ×2 (08:10→18:35)
[2018-07-17] MEDS ORDERED: VANCOMYCIN 1 GM/NS 1 GM/250 ML IVPB IV SCH (10:00)
[2018-07-17] MEDS: CENTRUM SILVER PO SCH (10:14)
[2018-07-17] MEDS: MAXIPIME 1 GM in NS 50 ML IV SCH (10:14)
--- NOTE | 2018-07-17 10:31 | Diag Imaging Result Doc PS360 ---
EXAM: KUB ABDOMEN 07/17/2018 HISTORY: Abd pain TECHNIQUE: KUB COMMENT: There is a nonspecific bowel gas pattern. There is no evidence organomegaly or mass. IMPRESSION: Nonspecific abdomen. Electronically signed by Jose Pisano 07/17/2018 10:29 AM
[2018-07-17] MEDS: SODIUM CHLORIDE 0.9% INJ SCH (10:52)
[2018-07-17] MEDS: PROTONIX IV SCH ×2 (10:52→22:24)
[2018-07-17] MEDS: LOVENOX SUBQ SCH (10:52)
--- NOTE | 2018-07-17 11:38 | PROGRESS NOTE ---
DATE: 07/17/2018 LOCATION: ICU bed 7. Mr. Villanueva is awake, alert, attentive. He was much more spontaneous with conversation today. There is no focal neurologic finding on brief bedside testing. I do not have any new thought or new suggestion from a neurology standpoint today. Thanks for asking Neurology to see Mr. Villanueva. cc: Goran Mcgowan III, MD
--- NOTE | 2018-07-17 12:10 | INFECTIOUS DISEASE CONSULT REP ---
DATE: 07/17/2018 CONCLUSION: I have been asked to see the patient. He has developed a left lung infiltrate which I agree is most likely a pneumonia. It could be due to aspiration in nature. RECOMMENDATIONS: I agree with starting the patient on a combination of cefepime and Zyvox. DISCUSSION: The patient was unable to provide a history. Most the information I got was from information in the computer. The patient was admitted initially with acute pancreatitis. He does have elevated triglycerides, which could be causing the pancreatitis. He also has gallbladder sludge which may be responsible for the pancreatitis and finally most likely the pancreatitis is secondary to alcohol intake. The latest chest x-ray done shows that there is a new left lung infiltrate compatible with pneumonia. The patient's CBC shows a white count of 8,300, hemoglobin 8, and platelet count 166,000. Creatinine is 6.1. GFR is 10. Blood gases show a pH of 7.25, a pO2 of 89, and a pCO2 of 59. The patient's amylase and lipase are normal. Hepatic panel is nonreactive. PAST MEDICAL HISTORY: Positive for hypertension, hyperlipidemia, and chronic back pain. PAST SURGICAL HISTORY: Positive for hiatal hernia repair, left ankle surgery, and removal of a tumor from the patient's neck. SOCIAL HISTORY: The patient smokes cigarettes and drinks alcoholic beverages. ALLERGIES: The patient's only allergy is to sulfa. MEDICATIONS: At home include the following. Amlodipine, atorvastatin, clonidine, losartan, and meclizine. PHYSICAL EXAMINATION: Vital Signs: Temperature maximum was 102, it is 99 now. Pulse 94, respirations 18, blood pressure 127/86. General: This is an ill-appearing, somewhat delirious, middle-aged male. He is in no acute distress. Head, Eyes, Ears, Nose, And Throat: No drainage noted from the nose or ears. He does not have any white patches on his tongue. Neck: No meningismus. Thorax: There is an increased AP diameter of the chest. Lungs : There were scattered rhonchi. Cardiovascular: Heart rate is regular. Abdomen: Soft and nontender. Bowel sounds are present. Neurologic: The patient is somewhat delirious. He did move his extremities to request. There is no tremor. He started talking but often he did not talk in a coherent fashion. Integument: No rash noted. Thank you for the consult. cc: Rinku Tate MD MTDD
[2018-07-17] MEDS: SODIUM BICARBONATE 8.4% IV PUSH SCH ×2 (13:58→18:35)
[2018-07-17] MEDS: NS 1,000 ML IV SCH ×2 (13:58→18:35)
--- NOTE | 2018-07-17 14:25 | PULMONOLOGY PROGRESS NOTE ---
DATE: 07/17/2018 SUBJECTIVE: Patient is awake, alert, and conversant. He is significantly more oriented and conversant today than yesterday. He reports he "is having a shitty day." He is having difficulty being more specific. OBJECTIVE: Vital signs: Blood pressure 109/62, heart rate 96, respiratory rate 18, oxygen saturation 96% on nasal cannula. HEENT: Pupils are equal and reactive. Oropharynx appears clear. Neck: Supple. Chest: Reveals shallow breath sounds but clear. Cardiac: S1, S2. Abdomen: Obese and soft with diminished bowel sounds. Extremities: Reveal trace edema. LABORATORIES: Chest x-ray reveals nonspecific abdominal gas pattern without evidence of obstruction. Chest x-ray reveals shallow breath sounds with faint infiltrates at the left base. Arterial blood gas, pH 7.25, pCO2 of 59, PO2 of 89. White blood count 8.30, hemoglobin 8.0, platelet count 166,000. IMPRESSION: This is a 42-year-old with obesity, new onset diabetes mellitus, hypertriglyceridemia, tobacco use, acute pancreatitis, acute hypoxemic and acute hypercapnic respiratory failure, delirium, acute renal failure, possible pneumonia at the left base. Clinically he appears to be improving but continues to have renal failure. RECOMMENDATION: 1. Continue to cycle BiPAP and nasal cannula for respiratory failure. 2. Continue current IV fluid management. 3. Continue antibiotics as outlined by Infectious Disease. 4. Continue ICU monitoring. He continues to remain critically ill. cc: Dixon Gresham MD
[2018-07-17 15:44] LABS: ALLEN TEST YES
[2018-07-17] MEDS: ATIVAN IV PRN (17:00)
[2018-07-17] MEDS: HALDOL IV PRN (20:58)
[2018-07-17] MEDS: LEVEMIR SUBQ SCH (21:00)
[2018-07-17] MEDS ORDERED: PHENOBARBITAL IV ONE (22:05)
--- NOTE | 2018-07-17 23:37 | GASTROENTEROLOGY PROGRESS NOTE ---
DATE: 07/17/2018 SUBJECTIVE: No acute overnight events. Patient is afebrile. He continues to remain altered, speaking nonsensically, requiring high levels of supplemental oxygen. He denies any nausea, vomiting. He is having bowel movements. He does report abdominal distention and tenderness diffusely. He is able to tolerate a diet, but sparingly. PHYSICAL EXAMINATION: Vital Signs: Temperature 98.7 degrees, heart rate 96, respirations 18, blood pressure 109/62, saturating 96% on 4 L nasal cannula. General: Patient is awake, confused, in no acute distress. HEENT: Anicteric. Moist mucous membranes. Neck: No JVD. No lymphadenopathy. Cardiac: Tachycardic, regular. No murmurs. Lungs: Decreased breath sounds bilaterally at the bases. Labored breathing. Mild tachypnea. No wheezing. Abdomen: Distended. Mild diffuse tenderness. No rebound or guarding. Bowel sounds audible. Lower Extremities: Minimal pedal edema. Neurologic: The patient is moving extremities symmetrically bilaterally. Nonfocal. LABS: White count of 8.3, hemoglobin 8.0, platelets of 166,000. Sodium 142, potassium 4.0, chloride 103, bicarb 25, BUN 51, creatinine 6.1, glucose 255, calcium 8.4, phosphorus 7.8, AST 82, ALT 141, alkaline phosphatase 209, total protein 5.8, ammonia 48, albumin 1.9. IMAGING: Chest x-ray shows interval development of left-sided pneumonia. KUB shows nonspecific bowel gas pattern. No evidence of obstruction or ileus. ASSESSMENT AND PLAN: 1. Mr. Villanueva is a 47-year-old gentleman admitted with acute pancreatitis, thought to be related to biliary sludge versus hypertriglyceridemia. He was found to have new-onset diabetes. His course was complicated by hypoxic respiratory failure, toxic metabolic encephalopathy, acute kidney injury suspected from acute tubular necrosis, and pneumonia. He also was noted to have worsening LFTs over the last several days from an unclear etiology. Acute hepatitis panel was negative. He has no personal history of alcoholism. He does have significant hepatic steatosis on imaging. I did not suspect any autoimmune disease. His elevated ferritin is less likely an acute phase reactant. Plan for his acute pancreatitis: I suspect that his pancreatitis has improved, that his primary issue currently is his pneumonia and renal dysfunction, as well as altered mental status. He is currently on antibiotics for pneumonia. He does not require antibiotics for his pancreatitis. I would continue to advance his diet to a low-fat diabetic diet as tolerated. KUB today did not show any evidence of ileus or obstruction. We will maintain patient on a bowel regimen, and treat his pain supportively. 2. Pneumonia. He remains on antibiotics, with linezolid. Infectious Disease team has been consulted. We will defer antibiotic regimen to Dr. Tate. 3. Oliguric acute kidney injury. The patient continues to maintain good urine output. I suspect that the patient may require temporary dialysis. Will defer to Renal. He is showing some signs of metabolic acidosis, and his acute kidney injury may be contributing to his altered mental status. 4. Diabetes. Patient is currently on a sliding scale insulin. 5. Abnormal LFTs. Acute hepatitis panel was negative. I suspect the patient may have acute liver injury, secondary to medications versus sepsis. Chronic liver disease workup pending. 6. Anemia. The patient has a hemoglobin that has been downtrending. However, he is not having any overt GI bleeding. Will continue patient on PPI for GI prophylaxis, and monitor hemoglobin. 7. Hypoxic respiratory failure, likely from underlying pneumonia. We will follow with you. Please call with questions or concerns.
--- NOTE | 2018-07-17 23:45 | PROGRESS NOTE ---
DATE: 07/17/2018 SUBJECTIVE: The patient is a little confused this morning. The nursing staff reports that he was talking to the IV pole. OBJECTIVE: Vital Signs: Temperature 98.8 degrees, blood pressure 129/88, heart rate 104 respirations 20, oxygen saturation 97% on 4 L nasal cannula. Urine output 2.3 L. General: This is a morbidly obese middle-aged male, lying in bed, in no acute distress. Head: Normocephalic, atraumatic. Heart: S1, S2 normal. Tachycardic. Lungs: Coarse breath sounds bilaterally. No wheezing. No rales. Abdomen: Positive bowel sounds. Soft, obese, nontender, nondistended. Extremities: No edema. No cyanosis. Neurologic: The patient is oriented to person. He does have periods of confusion. He is able to move all 4 extremities. LABS: White blood cell count 8.3, hemoglobin 8, hematocrit 26, platelets 166,000. ABG: pH 7.25, pCO2 59, PO2 89, bicarb 23. Sodium 142, potassium 4, chloride 103, CO2 25, BUN 51, creatinine 6.1, glucose 225. AST 82, ALT 141, alkaline phosphatase 209, ammonia 48, albumin 1.9. Chest x- ray shows a left-sided pneumonia. Abdominal x-ray shows a nonspecific bowel gas pattern. ASSESSMENT AND PLAN: 1. Acute hypercapnic and hypoxemic respiratory failure. The patient has pneumonia on the chest x- ray that was done today. Will change the patient to cefepime and Zyvox. Will also consult with ID. Pulmonary is following. Continue with bronchodilator therapy. 2. Pneumonia. The antibiotic therapy has been adjusted. We will monitor the patient closely for improvement. 3. Acute kidney injury. Stable. The patient has adequate urine output. 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 4. Metabolic encephalopathy. The patient's mental status appears to wax and wane. We will continue to treat the patient's underlying medical conditions and monitor the patient closely for improvement. 5. Pancreatitis. The patient's lipase is now normal. The patient does have gallbladder sludge, and his triglycerides were elevated. GI is following. 6. Tobacco dependence. Aware. 7. Diabetes mellitus, uncontrolled. The patient's blood sugars have been running in the 200- 300s. I will adjust the Humulin 70/30 dosage. 8. Hypertension. Improved. 9. Anemia. The patient's hemoglobin and hematocrit have dropped. Will continue to monitor this closely. Transfuse p.r.n. 10. Gastrointestinal prophylaxis. Continue with IV Protonix. 11. Severe protein calorie malnutrition. The patient is not eating very much. We will continue on Clinimix. 12. Deep venous thrombosis prophylaxis. Continue on Lovenox. cc: Renée Guillen MD
--- NOTE | 2018-07-18 00:24 | NEPHROLOGY PROGRESS NOTE ---
DATE: 07/17/2018 TIME SEEN: 0750 hours. SUBJECTIVE: Mr. Villanueva is resting quietly in bed. 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 He is confused. He wants to go home. OBJECTIVE: Vital Signs: Temperature 99.3 degrees, blood pressure 125/72, heart rate 92, respirations are 20. The patient is on 50% BiPAP. Last recorded saturation is 100%. He has had 3075 in, 2350 out to Mathews catheter. LABORATORY DATA: Sodium 142, potassium 4, chloride 103, CO2 of 25, BUN 51, creatinine 6.1, glucose 255. Anion gap of 14, calcium 8.4, phosphorus 7.8, albumin 2.2. White count 8.3, hemoglobin 8, hematocrit 26.5, with a platelet count of 166,000. ABGs: pH 7.25 , CO2 of 59, pO2 of 89, bicarb 23.4, with a lactate of 0.8 on 50% BiPAP. The patient had urine electrolytes indicating a FENa score of 1.12%. PHYSICAL EXAMINATION: General: This is a 47-year-old white male, resting quietly in bed. He is slightly agitated. No acute distress. Skin: Warm and dry. HEENT: Normocephalic, atraumatic. Conjunctiva is pale pink. He has PAUL. Mucous membranes dry. Neck: Supple. Trachea midline. No JVD. Cardiovascular: Regular rate and rhythm. No murmur or gallop auscultated. Lungs: Have faint expiratory wheezes to the anterior lobes. Remains on O2 support. Abdomen: Slightly distended, nontender. Positive bowel sounds. Genitourinary: Mathews catheter is in place. Adequate urine out. Extremities: Have trace edema. No clubbing or cyanosis. Integumentary: No rashes or lesions evident. ASSESSMENT AND PLAN: 1. Acute kidney injury. The patient's BUN and creatinine have stabilized. No further increases to his creatinine of 6 to 6.1 from yesterday to today. He has had adequate urine output recorded. We will evaluate his labs in the a.m. in hopes that the patient has plateaued and will hopefully start improvement. 2. Electrolytes and acid-base balance. These remain fairly stable. 3. Anemia. This is low but stable. 4. Acute pancreatitis. The patient remains NPO with gentle IV fluid hydration. 5. Hypertension. This is stable at this time. 6. Altered mental status. We will refer to Dr. Mcgowan for further evaluation to primary care team. I would like to thank you for allowing us to follow with this patient. Dictated by KT Lizarraga for Harlan Funes MD Face to face encounter, data reviewed, discussed with Natanael Manley on 07/17/18. I agree with the above assessment and plan of care. cc: KT Lizarraga MD [facility]
[2018-07-18] MEDS: ATIVAN IV PRN ×3 (01:04→08:31)
[2018-07-18] MEDS: CLINIMIX E 4.25%-5% SOLUTION 1,000 ML IV SCH ×2 (03:23→22:59)
[2018-07-18] MEDS: NS 1,000 ML IV SCH (03:23)
[2018-07-18] MEDS: ATROVENT NEB INH SCH ×6 (03:30→23:26)
[2018-07-18] MEDS: XOPENEX NEB INH SCH ×6 (03:31→23:26)
[2018-07-18 05:02] LABS: ALLEN TEST YES; BE 3.6 mmoll (-3.0-3.0); BLOOD TYPE ARTERIAL; HCO3-(ACT) 27.7 mmoll (20.0-26.0); METHB 0.3 % (0.0-1.5); O2(CT) 10.3 mL/dL (15.0-23.0); O2HB 96.1 % (95.0-99.0); PCO2(98.6) 44 mmHg (35-45); PO2(98.6) 86 mmHg (60-100); SAMPLE BLOOD; SAO2 98.5 % (95.0-100.0); THB 7.5 g/dL (11.5-17.4); pH(98.6) 7.42 (7.35-7.45)
[2018-07-18 05:03] LABS: MODALITY BI PAP
[2018-07-18] MEDS: HALDOL IV PRN (05:11)
[2018-07-18] MEDS: ZYVOX 600 MG/D5W 600 MG/300 ML IVPB IV SCH ×2 (06:30→18:38)
[2018-07-18] MEDS: HUMULIN R SUBQ SCH ×4 (06:30→20:43)
[2018-07-18 06:38] LABS: BASO# 0.04 X1000 (0.0-0.2); BASO% 0.5 % (0.0-0.8); EOS# 0.16 X1000 (0.0-0.7); EOS% 2.2 % (0.0-10.0); HEMATOCRIT 25.2 % (42.0-52.0); HEMOGLOBIN 7.8 g/dL (14.0-18.0); IMM GRAN# 0.05 X1000 (0.0-0.04); IMM GRAN% 0.7 % (0.0-0.5); LYMPH% 12.1 % (20.5-51.1); MCH 28.8 PG (27-31); MONO# 0.53 X1000 (0.11-0.59); MONO% 7.1 % (1.7-9.3); MPV 11.5 FL (7.4-10.4); NEUT# 5.74 X1000 (1.4-6.5); NEUT% 77.4 % (42.2-75.2); PLT 218 X1000 (130-400); RBC 2.71 XMIL (4.7-6.1); RDW 14.3 % (11.5-14.5); WBC 7.42 X1000 (4.8-10.8)
[2018-07-18 07:00] LABS: ALB/GLOB RATIO 0.5; ALBUMIN 2.1 g/dL (3.5-5.0); CALCIUM 7.8 mg/dL (8.8-10.2); CREATININE 5.7 mg/dL (0.7-1.2); DIRECT BILIRUBIN 0.1 mg/dL (0.00-0.20); PHOSPHORUS 4.1 mg/dL (2.7-4.5); POTASSIUM 3.1 mmol/L (3.5-5.1); TOTAL BILIRUBIN 0.31 mg/dL (0.20-1.00)
[2018-07-18] MEDS ORDERED: POTASSIUM CHLORIDE 40 MEQ/SWI 40 MEQ/100 ML IVPB IV ONE (07:08)
--- NOTE | 2018-07-18 07:15 | Diag Imaging Result Doc PS360 ---
EXAM: CHEST-PORTABLE INDICATION: respiratory failure TECHNIQUE: One view COMPARISON: 05/17/2019 FINDINGS: There has been interval improvement of the infiltrate at the left lower lung zone. No new consolidation is identified. Cardiac silhouette is stable. IMPRESSION: Interval improvement. Electronically signed by Emmett Turner 07/18/2018 7:13 AM
[2018-07-18] MEDS: LIBRIUM PO SCH ×3 (07:43→18:38)
[2018-07-18] MEDS: ATIVAN 20 MG in NS 190 ML IV SCH ×2 (07:57→16:16)
[2018-07-18] MEDS ORDERED: M.V.I.-12 10 ML, THIAMINE 100 MG, FOLIC ACID 1 MG, MAGNESIUM SULFATE 1 GM in NS 1,000 ML IV ONE (08:00)
[2018-07-18] MEDS: MAXIPIME 1 GM in NS 50 ML IV SCH (09:14)
[2018-07-18] MEDS: LEVEMIR SUBQ SCH ×2 (09:14→20:42)
[2018-07-18] MEDS: HEPARIN SUBQ SCH ×3 (09:14→20:42)
[2018-07-18] MEDS: CENTRUM SILVER PO SCH (09:14)
[2018-07-18] MEDS: PROTONIX IV SCH ×2 (11:33→22:59)
[2018-07-18] MEDS: D5 1/2 NS 1,000 ML IV SCH (11:33)
[2018-07-18] MEDS: SODIUM CHLORIDE 0.9% INJ SCH (11:33)
--- NOTE | 2018-07-18 12:12 | PROGRESS NOTE ---
DATE: 07/18/2018 Mr. Villanueva has been sedated with lorazepam. At the time of my exam, he appeared to be sleeping peacefully. With moderate stimulation, he grumbled, but did not communicate with me. I observed him moving each limb spontaneously. He has full lateral eye movement with passive head turning. Neck is supple. There is report of restlessness and delirium with lourdes hallucinatory behavior earlier. There is concern for a withdrawal syndrome. Specific drug causing withdrawal is not certain. I do not have any urgent suggestion. We can consider EEG when practical. EEG, while loaded with lorazepam, will likely not be as helpful, and I do not think EEG is urgent today. Thanks for asking Neurology to see Mr. Villanueva. cc: MD CHRISTIE Orellana III
[2018-07-18] MEDS ORDERED: CATAPRES-TTS-1 TD SCH (16:00)
[2018-07-18] MEDS: LABETALOL IV PRN (17:38)
--- NOTE | 2018-07-18 19:16 | PROGRESS NOTE ---
DATE: 07/18/2018 SUBJECTIVE: The patient was noted to be very confused and agitated overnight, and wheezing this morning. He has been placed on an Ativan drip. Also, his blood pressure has been elevated as well. OBJECTIVE: Vital Signs: Temperature 97.8 degrees, blood pressure 176/91, heart rate 113, respirations 15, O2 saturation 91% on 4 L nasal cannula. Urine output 2.9 L. General: This is a chronically ill, middle-aged male lying in bed in no acute distress. Heart: S1, S2 normal. Tachycardic. Lungs: Equal air entry bilaterally. No wheezing. No rales. Abdomen: Positive bowel sounds. Soft, nontender, nondistended. Extremities: No edema. No cyanosis. No calf tenderness. Neurologic: The patient is awake, but delirious and confused. He is able to move all 4 extremities. LABS: White blood cell count 7.4, hemoglobin 7.9, hematocrit 25, platelets 218,000. Sodium 148, potassium 3.1, chloride 107, CO2 26, BUN 53, creatinine 5.7, glucose 171. Calcium 7.8, AST 91, ALT 143, alkaline phosphatase 243, albumin 2.1, total protein 6, procalcitonin 4.1. ASSESSMENT AND PLAN: 1. Acute hypoxemic respiratory failure. The patient has pneumonia. We will continue to treat with the current antibiotics as directed by Dr. Tate. 2. Acute delirium. The etiology is unknown. The patient is outside of the normal range of alcohol withdrawal. He is currently on an Ativan drip. We will monitor the patient's mental status closely. Neurology is following. 3. Acute kidney injury. Slowly improving. The patient has adequate urine output. We will continue with IV fluids. Nephrology is following. 4. Acute pancreatitis. Stable. GI is following. 5. Pneumonia. Continue with antibiotic therapy. 6. Tobacco dependence. Aware. 7. History of alcohol abuse. Aware. 8. Diabetes mellitus, uncontrolled. Continue on long-acting insulin plus sliding scale insulin. 9. Uncontrolled hypertension. We will start p.r.n. labetalol. 10. GI prophylaxis. Continue on Protonix. 11. DVT prophylaxis. Continue on heparin. cc: Renée Guillen MD
--- NOTE | 2018-07-18 23:24 | NEPHROLOGY PROGRESS NOTE ---
DATE: 07/18/2018 SUBJECTIVE: He is asleep. No complaints. OBJECTIVE: Vital Signs: Blood pressure 152/87, heart rate 93, respirations 19, afebrile. General: No acute distress. Skin: Warm and dry. Conjunctivae are pink. Neck: Neck veins are not distended. Heart: Regular, with a gallop. Lungs: Equal. No crackles. Abdomen: Soft, obese, distended. Bowel sounds present. Extremities: Trace edema. No clubbing or cyanosis. IMPRESSION: Acute kidney injury. Excellent urine output. BUN and creatinine seem to have stabilized or plateaued. He does not meet criteria for dialysis today. Continue to observe daily. cc: Harlan Funes MD
[2018-07-19] MEDS: D5 1/2 NS 1,000 ML IV SCH (00:24)
--- NOTE | 2018-07-19 00:42 | INFECTIOUS DISEASE PROGRESS NO ---
DATE: 07/18/2018 PRESENT ILLNESS: The patient has a left lung infiltrate, which appears to be a pneumonia. It most likely is aspiration in nature. MEDICATIONS: The patient is on the first day of cefepime and Zyvox. PHYSICAL EXAMINATION: Vital Signs: Temperature is 99 degrees, pulse 104, respirations 21, blood pressure 162/101. General: This is an ill-appearing middle-aged male. He is sedated. Head, Eyes, Ears, Nose, and Throat: No drainage noted from the nose or ears. Neck: No stiffness. Thorax: Increased AP diameter of the chest. Lungs: There were scattered rhonchi. Cardiovascular: Heart rate is regular. Abdomen: Soft and nontender. Neurologic: The patient is sedated. He does not have a tremor. Integument: No rash. LAB AND X-RAY: Chest x-ray shows improvement in the left lower lobe infiltrate. The patient's blood gases show a pH of 7.42, a pO2 of 86, and a pCO2 of 44. Creatinine is 5.7. GFR is 11. Procalcitonin is 4.1. Immunoglobulin levels are normal. ASSESSMENT AND PLAN: The patient has a left lower lobe infiltrate, which appears to be improving on antibiotics. My plan will be to continue the antibiotics. COMORBIDITIES: The patient is a cigarette smoker and alcoholic. cc: Rinku Tate MD
[2018-07-19] MEDS: LIBRIUM PO SCH ×3 (01:12→13:30)
--- NOTE | 2018-07-19 01:43 | GASTROENTEROLOGY PROGRESS NOTE ---
DATE: 07/18/2018 SUBJECTIVE: No acute overnight events. Afebrile. The patient is currently on Ativan drips given agitation, unable to give review of systems. Per RN the patient has not had any rectal bleeding. OBJECTIVE: Vital Signs: Temperature 99 degrees, pulse of 104, respiratory rate 21, blood pressure 162/101, O2 saturation 92% on 4 L nasal cannula. General: The patient is somnolent, arousable, moving extremities. He is currently restrained. HEENT: Anicteric. Moist mucous membranes. Neck: No lymphadenopathy. Cardiac: Tachycardic, regular. No murmurs. Lungs: Increased work of breathing. Clear to auscultation bilaterally anteriorly. Abdomen: Obese, distended, nontender. Bowel sounds present. No rebound or guarding. No ascites. LABORATORY DATA: From last evening, white count of 7.4, hemoglobin is 7.8, platelets of 218,000. Sodium 148, potassium 3.1, chloride 107, bicarbonate 26, BUN 53, creatinine 5.7 , glucose 171. LFTs, albumin 2.1, total protein 6.0, total bilirubin 0.3, AST of 95, ALT of 143 , alkaline phosphatase of 243. Chest x-ray from yesterday shows some interval improvement of infiltrate at the left lower lung zone. No new consolidation is identified. ASSESSMENT AND PLAN: Mr. Villanueva is a 47-year-old gentleman admitted for acute pancreatitis thought to be related to biliary sludge versus hypertriglyceridemia. There is some question of alcohol abuse, although at bedside reports the patient only drinks a couple of beverages per month. His course here has been complicated by hypoxic respiratory failure, toxic metabolic encephalopathy, probable intensive care unit delirium, acute kidney injury and pneumonia. He has also had rising liver function tests for which workup thus far has been negative for chronic liver disease. Per RN the patient does report having worsening abdominal pain with eating, although lipase has normalized since his presentation. KUB yesterday did not show any evidence of ileus. We will continue to monitor for signs of infection including leukocytosis, fever, or change in clinical status. Pneumonia appears to be improving on antibiotics. Recent chest x-ray shows interval improvement. Dr. Tate from Infectious Disease is following. 1. Oliguric acute kidney injury. The patient maintains good urine output. Creatinine appears to have plateaued and may be downtrending, Renal is following. 2. Diabetes. The patient is currently on sliding scale insulin. 3. Abnormal liver function tests. Acute hepatitis panel was negative. There is no history or evidence based off labs that the patient has cirrhosis. Ammonia level was normal. 4. Altered mental status, suspect multifactorial. The patient was seen by Neurology on 07/11/2018 and had an electroencephalogram done that showed diffuse nonspecific encephalopathy. 5. Anemia. Hemoglobin has been downtrending; however, no overt signs of gastrointestinal bleeding. We will continue to monitor. The patient is on proton pump inhibitor for gastrointestinal prophylaxis. 6. Hypoxic respiratory failure likely secondary to underlying pneumonia. Defer to primary team as far as management. Continue supportive care. We will follow with you. Please call with any questions or concerns. MTDJuan
[2018-07-19] MEDS: XOPENEX NEB INH SCH ×6 (03:00→23:21)
[2018-07-19] MEDS: ATROVENT NEB INH SCH ×6 (03:19→23:21)
[2018-07-19 05:11] LABS: ALLEN TEST YES; BE 1.2 mmoll (-3.0-3.0); BLOOD TYPE ARTERIAL; HCO3-(ACT) 25.9 mmoll (20.0-26.0); METHB 0.5 % (0.0-1.5); O2(CT) 11.4 mL/dL (15.0-23.0); O2HB 97.5 % (95.0-99.0); PCO2(98.6) 41 mmHg (35-45); PO2(98.6) 120 mmHg (60-100); SAMPLE BLOOD; SAO2 99.8 % (95.0-100.0); THB 8.1 g/dL (11.5-17.4); pH(98.6) 7.41 (7.35-7.45)
[2018-07-19 05:13] LABS: MODALITY BI PAP
--- NOTE | 2018-07-19 05:21 | PULMONOLOGY PROGRESS NOTE ---
DATE: 07/18/2018 SUBJECTIVE: Patient was hallucinating earlier today, and he has received some sedation. He is arousable, but will not follow commands. OBJECTIVE: Vital signs: Maximum temperature in the last 24 hours 100.4 degrees. He has been afebrile today. BP 184/99, heart rate 124, respiratory rate 16, oxygen saturation 94% on Venturi mask. HEENT: Pupils are equal and reactive. Oropharynx is clear. Neck: Supple. Chest: Reveals good air entry bilaterally without wheezing or rhonchi. Cardiac: S1, S2. Abdomen: Obese and soft. Extremities: Without edema. LABORATORIES: Arterial blood gas reveals a pH of 7.42, pCO2 of 44, pO2 of 86. White blood count 7.42, hemoglobin 7.8, platelet count 218,000. Chest x-ray reveals some improvement in the left base. IMPRESSION: A 42-year-old with obesity, diabetes mellitus, hypertriglyceridemia, tobacco use, acute pancreatitis, acute hypoxemic and acute hypercapnic respiratory failure, fluctuating delirium, with acute renal failure. He has changes of the left base with marginal improvement today, and this may represent pneumonia. The etiology for the fluctuating mental status is not clear. He has been in the hospital for 12 days, making new onset withdrawal unlikely. RECOMMENDATION: 1. Continue antibiotics per Infectious Disease for possible left lower lobe pneumonia. 2. Continue to cycle BiPAP and nasal cannula. 3. Agree with initiation of free water for hypernatremia. 4. Continue ICU monitoring. He remains critically ill. cc: Dixon Gresham MD
[2018-07-19] MEDS: HEPARIN SUBQ SCH ×3 (05:37→20:36)
[2018-07-19 05:48] LABS: BASO# 0.03 X1000 (0.0-0.2); BASO% 0.3 % (0.0-0.8); EOS# 0.11 X1000 (0.0-0.7); EOS% 1.2 % (0.0-10.0); HEMATOCRIT 25.7 % (42.0-52.0); HEMOGLOBIN 7.7 g/dL (14.0-18.0); IMM GRAN# 0.05 X1000 (0.0-0.04); IMM GRAN% 0.5 % (0.0-0.5); LYMPH# 0.92 X1000 (1.2-3.4); LYMPH% 9.8 % (20.5-51.1); MCH 28.7 PG (27-31); MCV 95.9 FL (81-99); MONO# 0.81 X1000 (0.11-0.59); MONO% 8.6 % (1.7-9.3); MPV 11.2 FL (7.4-10.4); NEUT# 7.46 X1000 (1.4-6.5); NEUT% 79.6 % (42.2-75.2); PLT 274 X1000 (130-400); RBC 2.68 XMIL (4.7-6.1); RDW 14.7 % (11.5-14.5); WBC 9.38 X1000 (4.8-10.8)
[2018-07-19 06:09] LABS: ALB/GLOB RATIO 0.6; ALBUMIN 2.3 g/dL (3.5-5.0); CALCIUM 8.2 mg/dL (8.8-10.2); CREATININE 5.1 mg/dL (0.7-1.2); DIRECT BILIRUBIN 0.1 mg/dL (0.00-0.20); PHOSPHORUS 3.5 mg/dL (2.7-4.5); POTASSIUM 3.7 mmol/L (3.5-5.1); TOTAL BILIRUBIN 0.22 mg/dL (0.20-1.00); TOTAL PROTEIN 6.1 g/dL (6.3-8.3)
[2018-07-19] MEDS: HUMULIN R SUBQ SCH ×4 (06:10→20:37)
[2018-07-19] MEDS: ZYVOX 600 MG/D5W 600 MG/300 ML IVPB IV SCH ×2 (06:33→18:48)
[2018-07-19] MEDS: D5W 1,000 ML IV SCH ×2 (06:41→22:00)
--- NOTE | 2018-07-19 07:28 | Diag Imaging Result Doc PS360 ---
EXAM: CHEST-PORTABLE 07/19/2018 HISTORY: respiratory failure TECHNIQUE: AP portable at 0506 COMMENT: There is apparent left pleural effusion which was not clearly present on 07/18/2018 and there is increased opacification of the left lower lobe. IMPRESSION: Worsened atelectasis or pneumonia left lower lobe with pleural effusion. Electronically signed by Jose Pisano 07/19/2018 7:26 AM
[2018-07-19] MEDS: MAXIPIME 1 GM in NS 50 ML IV SCH (09:19)
[2018-07-19] MEDS: LEVEMIR SUBQ SCH ×2 (09:20→20:37)
[2018-07-19] MEDS: CENTRUM SILVER PO SCH (09:20)
[2018-07-19] MEDS: HALDOL IV PRN ×2 (09:20→20:37)
[2018-07-19] MEDS: LABETALOL IV PRN ×3 (09:21→18:53)
[2018-07-19] MEDS: PROTONIX IV SCH (10:59)
[2018-07-19] MEDS: SODIUM CHLORIDE 0.9% INJ SCH (10:59)
--- NOTE | 2018-07-19 11:23 | Diag Imaging Result Doc PS360 ---
EXAM: KUB ABDOMEN 07/19/2018 HISTORY: abd distention TECHNIQUE: KUB COMMENT: There is some gas in the sigmoid colon and gastric fundus but there is no evidence of small bowel dilatation or obstruction. There is no evidence organomegaly or mass. Compared to 07/17/2018 there is less bowel gas generally. IMPRESSION: The possibility of ascites cannot be excluded. No evidence of bowel obstruction. Electronically signed by Jose Pisano 07/19/2018 11:21 AM
--- NOTE | 2018-07-19 13:55 | PULMONOLOGY PROGRESS NOTE ---
DATE: 07/19/2018 SUBJECTIVE: Patient is currently on his BiPAP device. He is moaning. He has received 8 mg of Ativan this morning. OBJECTIVE: Maximum temperature in the last 24 hours 100.5 degrees. Current temperature 98.1 degrees. Blood pressure 179/92, heart rate 88, respiratory rate 20, oxygen saturation 96%. HEENT: Pupils are equal and reactive. Oropharynx appears clear but dry. Neck is supple. Chest reveals occasional rhonchi bilaterally. Abdomen is distended with decreased bowel sounds. He does moan with examination of the abdomen. Extremities reveal 1+ edema. LABORATORIES: Chest x-ray reveals increase pleural effusion with atelectasis at the left base. Arterial blood gas reveals a pH 7.41, pCO2 of 41, PO2 of 120. IMPRESSION: A 42-year-old with 1. Obesity. 2. Diabetes mellitus. 3. Hypertriglyceridemia. 4. Tobacco use. 5. Acute pancreatitis. 6. Acute hypoxemic and acute hypercapnic respiratory failure. 7. Acute renal failure and delirium. The patient has been positive fluid balance for the last several days. He is developing effusions. The etiology for his delirium is not clear. I agree with GI and is likely multifactorial. RECOMMENDATION: 1. Continue to cycle BiPAP and nasal cannula for respiratory failure. 2. Continue free water for his hypernatremia. 3. Initiate a diuretic trial given worsened radiographic status. 4. Continue ICU monitoring. The patient is at risk for respiratory decompensation requiring intubation. cc: Dixon Gresham MD
--- NOTE | 2018-07-19 14:04 | PROGRESS NOTE ---
DATE: 07/19/2018 SUBJECTIVE: Mr. Villanueva continues sedated with lorazepam drip and he has had p.r.n. haloperidol administered. At the time of my exam, he appears to be sleeping and is easily awakened, followed simple commands consistently including holding up 2 fingers, protruding his tongue. His speech was garbled and dysarthric but could be understood. There is no meningismus. There is no clear focal neurologic finding on limited bedside exam. I do not have any urgent suggestion. Might consider EEG later depending on clinical course, and as mentioned yesterday, that might be more helpful after lorazepam dose is stopped. Thanks for asking Neurology to see Mr. Villanueva. cc: MD CHRISTIE Orellana III
--- NOTE | 2018-07-19 14:14 | NEPHROLOGY PROGRESS NOTE ---
DATE: 07/19/2018 TIME SEEN: 0745. SUBJECTIVE: Mr. Villanueva is resting quietly in bed. He remains confused. He is on a BiPAP. He also has bilateral upper wrist restraints in place. OBJECTIVE: Vital Signs: Temperature 99.9 degrees, blood pressure 170/98, heart rate 95, respirations 26. He is currently on 40% BiPAP. Last recorded saturation is 98% . He has had 4770 in, 3300 out. Labs: Sodium 149, potassium 3.7, chloride 112, CO2 24, BUN 55, creatinine 5.1, glucose 249, anion gap 13, calcium 8.2, phosphorus 3.5, albumin 2.3. White count 9.38, hemoglobin 7.7, hematocrit 25.7, with a platelet count of 274,000. PH of 7.41, CO2 41, PO2 120, bicarb 25.9 on 40%. PHYSICAL EXAMINATION: General: This is a 47-year-old white male currently resting quietly in bed. He is slightly agitated. Wrist restraints remain in place. Skin: Warm and dry. HEENT: Normocephalic, atraumatic. Conjunctivae pale pink. He has PAUL. Mucous membranes dry. Neck: Supple. Trachea midline. Unable to determine JVD. Cardiovascular: Regular rate and rhythm. He is slightly tachycardic on the monitor. Lungs: Have coarse breath sounds bilaterally. Equal excursion. He remains on BiPAP support. Abdomen: Large, round, soft, nontender. Positive bowel sounds. Genitourinary: Mathews catheter is in place with adequate urine out. Extremities: Have trace edema. No clubbing or cyanosis. Integumentary: No rashes or lesions evident. ASSESSMENT AND PLAN: 1. Acute kidney injury. Patient's BUN and creatinine have stabilized if not slightly improved. BUN at 55 with a creatinine down to 5.1. He has adequate urine output. No indications for dialysis intervention. We will continue to monitor. 2. Electrolytes, acid-base balance. These are in target. 3. Anemia. This remains low. We will defer to the primary care team to monitor. 4. Acute pancreatitis. The patient does remain NPO with gentle IV fluid hydration. Followed by the primary care team. I would like to thank you for allowing us to follow with this patient. Dictated by KT Lizarraga for Harlan Funes MD Face to face encounter, data reviewed, discussed with Ovidio Manley on 07/19/18. I agree with the above assessment and plan of care. cc: KT Lizarraga MD [facility]
--- NOTE | 2018-07-19 14:41 | GASTROENTEROLOGY PROGRESS NOTE ---
DATE: 07/19/2018 SUBJECTIVE: Patient is resting in bed. He is agitated. He is on a face mask. His abdomen is distended. We ordered an abdominal x-ray which showed some gas in the sigmoid colon and gastric fundus but no evidence of any small bowel dilation or obstruction. OBJECTIVE: Vital signs: Temperature of 98.1 degrees, pulse rate of 88, respiratory rate of 20, blood pressure 113/92, saturating 98% on BiPAP. Body weight of 244 pounds 8 ounces, BMI 38.3 kg/m2. General Appearance: Obese, lying in bed, currently agitated. He is on a BiPAP mask. HEENT: Positive pallor. No icterus. Positive BiPAP mask. Neck: Supple. Abdomen: Distended, tympanic. No rebound. Extremities: No cyanosis, clubbing. Neurologic: He is agitated. LABS: Hemoglobin and hematocrit are 7.7 and 25.7, white count of 9.38, platelet count of 274,000. PH of 7.41, pCO2 41, PO2 120; this is on BiPAP at 40% FiO2. Sodium 141, potassium 3.7, chloride 112, bicarb 24, anion gap 13, BUN of 51, creatinine 5.1, glucose of 249, calcium 8.2, phosphorus 3.5, total bilirubin is 0.22, AST 36, ALT 105, total protein is 6.1, albumin of 2.3, alkaline phosphatase 189. Alpha 1 antitrypsin level of 361. Ceruloplasmin level 36.6. Iron studies show a percent saturation of 55%. MONAE is negative. Antimitochondrial antibodies negative. smooth muscle antibodies positive 1:80 titres; Hepatitis panel is nonreactive. Chest x-ray done showed worsened atelectasis or pneumonia in the left lower lobe with pleural effusion. IMPRESSION AND PLAN: 1. Acute pancreatitis. This has now resolved. 2. Gallbladder sludge. Aware. Dr. Bravo has seen the patient. Once the patient has recovered he may need cholecystectomy per Dr. Bravo. 3. Hypertriglyceridemia. This needs to be addressed as an inpatient and outpatient per the primary team to prevent further acute pancreatitis. 4. Acute hypoxemic and hypercapnic respiratory failure. This is being managed Dr. Gresham. 5. Fluctuating delirium. He is on Ativan. 6. Acute renal failure. Dr. Funes is following. 7. Gastrointestinal prophylaxis. PPIs. 8. Anemia. Continue to watch for now and transfuse as needed. 9. Pneumonia. He is on antibiotics per Infectious Disease team. 10. Nutrition. He is on Clinimix. 11. Diabetes. He is on insulin regimen. 12. The above plan was discussed with the patient's nurse and all questions were answered. cc: MD Av Alves MD MTDJuan
--- NOTE | 2018-07-19 15:22 | PROGRESS NOTE ---
DATE: 07/19/2018 SUBJECTIVE: The patient is currently on BiPAP. He remains confused. He is currently on an Ativan drip as well. OBJECTIVE: Vital Signs: Temperature 98.1 degrees, blood pressure 178/95, heart rate 88, respiratory rate 21, O2 saturation 96% on BiPAP. General: This is a morbidly obese male, lying in bed in no acute distress. Head: Normocephalic atraumatic. Heart: S1, S2 normal. Regular rate and rhythm. Lungs: Equal air entry bilaterally. No wheezing. No rales. Abdomen: Positive bowel sounds. Firm, nontender. Extremities: No edema, no cyanosis. Neurologic: The patient is currently sedated. He does, however, awaken and move his arms and legs. LABS: White blood cell count 9.3, hemoglobin 7.7, hematocrit 25, platelets 274. Sodium 149, potassium 3.7, chloride 112, CO2 24. BUN 55, creatinine 5.1, glucose 249, calcium 8.2. AST 36, ALT 105, alkaline phosphatase 189, albumin 2.3. ASSESSMENT AND PLAN: 1. Acute hypoxemic respiratory failure. We will continue to treat the patient for pneumonia. Continue with bronchodilator therapy. Further management as per the recovery rn. 2. Pneumonia. Continue on the current antibiotic regimen as directed by Dr. Tate. 3. Metabolic encephalopathy with delirium. The patient is currently on an Ativan drip, which is being weaned off. We will continue to monitor for improvement in the patient 's mental status. 4. Acute kidney injury. Slightly improved. We will continue to monitor closely. Nephrology is following. 5. Uncontrolled hypertension. The patient is unable to take oral medications at this time due to his altered mental status. We will adjust the Catapres patch dosage and continue with labetalol as needed. 6. Acute pancreatitis. Stable. 7. Tobacco dependence. Aware. 8. Alcohol abuse. Aware. 9. Uncontrolled insulin-dependent diabetes mellitus. Will add Levemir. 10. Hypernatremia. We will change the patient's intravenous fluids to D5W and monitor for improvement. 11. Severe protein calorie malnutrition. The patient is on Clinimix. 12. Gastrointestinal prophylaxis. Continue on Protonix. 13. Deep vein thrombosis prophylaxis. Continue on heparin. The patient's was updated over the phone. cc: Renée Guillen MD [facility]
[2018-07-19] MEDS: ATIVAN 20 MG in NS 190 ML IV SCH (15:27)
[2018-07-19] MEDS: ATIVAN IV PRN ×4 (15:37→22:00)
[2018-07-19] MEDS: LASIX IV SCH (15:37)
[2018-07-19] MEDS: CATAPRES-TTS-2 TD SCH (16:33)
[2018-07-19] MEDS: CLINIMIX E 4.25%-5% SOLUTION 1,000 ML IV SCH (18:47)
[2018-07-20] MEDS: ATIVAN IV PRN ×3 (00:25→08:35)
[2018-07-20] MEDS: PROTONIX IV SCH ×3 (00:25→22:55)
[2018-07-20] MEDS: SODIUM CHLORIDE 0.9% INJ SCH ×2 (00:25→22:55)
--- NOTE | 2018-07-20 01:22 | INFECTIOUS DISEASE PROGRESS NO ---
DATE: 07/19/2018 PRESENT ILLNESS: The patient has a left lung pneumonia, it could be due to aspiration. MEDICATIONS: This is day 2 of the treatment with cefepime and Zyvox. PHYSICAL EXAMINATION: Vital Signs: Temperature is 98.3 degrees, pulse 92, respirations 18, blood pressure 161/98. General: This is an ill-appearing, delirious middle-aged male, he is sedated. Head eyes ears, nose, and throat: There is no drainage from the nose or the ears. Neck: No meningismus. Thorax: The patient has an increased AP diameter of the chest. Lungs: With scattered rhonchi. Cardiovascular: Heart rate is regular. Abdomen: Was soft, seemed to be somewhat distended, it was not tender. Neurologic: The patient is sedated but appears to be in a delirium. Integument: No rash. LABS AND X-RAY: Chest x-ray shows left lower lobe infiltrate. The patient's CBC shows a white count of 9380, hemoglobin 7.7, and platelet count 274,000. Blood gases show a pH 7.41, a PO2 of 120, a pCO2 of 41, creatinine is 5.1. GFR is 12. Immunoglobulin levels are normal. Stool for Clostridium difficile is pending. ASSESSMENT AND PLAN: Pain. His left lower lobe pneumonia. I plan to continue the patient's current antibiotics. COMORBIDITIES: The patient is a cigarette smoker and alcoholic. cc: Rinku Tate MD
[2018-07-20] MEDS: HALDOL IV PRN ×3 (02:15→20:34)
[2018-07-20] MEDS: LASIX IV SCH (02:15)
[2018-07-20] MEDS: XOPENEX NEB INH SCH ×6 (03:49→23:50)
[2018-07-20] MEDS: ATROVENT NEB INH SCH ×6 (03:49→23:50)
[2018-07-20 04:52] LABS: BASO# 0.02 X1000 (0.0-0.2); BASO% 0.2 % (0.0-0.8); EOS# 0.19 X1000 (0.0-0.7); EOS% 2.2 % (0.0-10.0); HEMOGLOBIN 7.6 g/dL (14.0-18.0); IMM GRAN# 0.05 X1000 (0.0-0.04); IMM GRAN% 0.6 % (0.0-0.5); LYMPH# 1.05 X1000 (1.2-3.4); LYMPH% 12.3 % (20.5-51.1); MCH 28.6 PG (27-31); MCHC 30.4 g/dL (33-37); MONO# 0.46 X1000 (0.11-0.59); MONO% 5.4 % (1.7-9.3); MPV 11.2 FL (7.4-10.4); NEUT# 6.77 X1000 (1.4-6.5); NEUT% 79.3 % (42.2-75.2); PLT 300 X1000 (130-400); RBC 2.66 XMIL (4.7-6.1); RDW 14.6 % (11.5-14.5); WBC 8.54 X1000 (4.8-10.8)
[2018-07-20] MEDS: HEPARIN SUBQ SCH ×3 (04:53→20:34)
[2018-07-20 05:05] LABS: ALLEN TEST YES; BE 5.5 mmoll (-3.0-3.0); BLOOD TYPE ARTERIAL; HCO3-(ACT) 29.2 mmoll (20.0-26.0); METHB 1.5 % (0.0-1.5); O2(CT) 10.9 mL/dL (15.0-23.0); O2HB 94.4 % (95.0-99.0); PCO2(98.6) 42 mmHg (35-45); PO2(98.6) 73 mmHg (60-100); SAMPLE BLOOD; SAO2 97.7 % (95.0-100.0); THB 8.1 g/dL (11.5-17.4); pH(98.6) 7.46 (7.35-7.45)
[2018-07-20 05:06] LABS: MODALITY BI PAP
[2018-07-20 05:15] LABS: ALBUMIN 2.4 g/dL (3.5-5.0); CALCIUM 8.1 mg/dL (8.8-10.2); CREATININE 5.1 mg/dL (0.7-1.2); PHOSPHORUS 4.5 mg/dL (2.7-4.5); POTASSIUM 3.2 mmol/L (3.5-5.1)
[2018-07-20] MEDS: HUMULIN R SUBQ SCH ×4 (06:31→20:34)
[2018-07-20] MEDS: ZYVOX 600 MG/D5W 600 MG/300 ML IVPB IV SCH ×2 (07:20→20:33)
--- NOTE | 2018-07-20 07:44 | Diag Imaging Result Doc PS360 ---
EXAM: CHEST-PORTABLE INDICATION: respiratory failure TECHNIQUE: One view COMPARISON: 07/19/2018 FINDINGS: The lung volumes are low, even more so than the previous study. The opacification at the left lung base suggesting effusion with adjacent atelectasis and/or infiltrate is approximately stable given differences in inspiration. No new consolidation is identified. Cardiac silhouette is stable. IMPRESSION: Lower lung volumes but essentially stable, otherwise. Electronically signed by Emmett Turner 07/20/2018 7:41 AM
[2018-07-20] MEDS: CENTRUM SILVER PO SCH (08:28)
[2018-07-20] MEDS: POTASSIUM CHLORIDE 20 MEQ/SWI 20 MEQ/100 ML IVPB IV SCH ×2 (08:36→10:24)
[2018-07-20] MEDS: LEVEMIR SUBQ SCH ×2 (08:36→21:23)
--- NOTE | 2018-07-20 08:55 | INFECTIOUS DISEASE PROGRESS NO ---
DATE: 07/20/2018 PRESENT ILLNESS: The patient has left lower lobe pneumonia with effusion, and it may have been caused by aspiration. MEDICATIONS: This is the third day of treatment with a combination of cefepime and Zyvox. PHYSICAL EXAMINATION: Vital Signs: Temperature is 98.8, pulse 95, respirations 22, blood pressure 154/102. Generally, this is an ill-appearing and delirious middle-aged male. He is sedated. Head, Eyes, Ears, Nose and Throat: No drainage from the nose or ears. Neck: No meningismus. Thorax: The patient has an increased AP diameter of the chest. Lungs clear to auscultation today. Cardiovascular: Heart rate is regular. Abdomen seems somewhat distended, but it is soft and nontender. Neurologic: The patient is sedated. He seems to be in a delirium. Integument: No rash noted. LABORATORY DATA AND X-RAY: Chest x-ray shows left lower lobe infiltrate and effusion. Stool for Clostridium difficile toxin is negative. Procalcitonin is 4.1. Immunoglobulin levels are normal. Creatinine is 5.1. GFR is 12. The patient's blood gases show a pH of 7.46, pO2 of 73, and pCO2 of 42. CBC shows a white count of 8540. Hemoglobin 7.6, platelet count 300,000. ASSESSMENT AND PLAN: The patient has pneumonia with effusion. I plan to continue his current antibiotics. COMORBIDITIES: The patient is a cigarette smoker and alcoholic. cc: Rinku Tate MD
[2018-07-20 09:09] LABS: ALB/GLOB RATIO 0.6; ALBUMIN 2.4 g/dL (3.5-5.0); DIRECT BILIRUBIN 0.1 mg/dL (0.00-0.20); TOTAL BILIRUBIN 0.24 mg/dL (0.20-1.00); TOTAL PROTEIN 6.6 g/dL (6.3-8.3)
--- NOTE | 2018-07-20 09:12 | Diag Imaging Result Doc PS360 ---
EXAM: CT THORAX/ABD/PELVIS W/O CON HISTORY: worsening abdominal distention TECHNIQUE: 1. CT chest without contrast 2. CT abdomen and pelvis without contrast COMPARISON: Abdomen and pelvis compared to 07/08/2018 FINDINGS: Chest: There are small pleural effusions. The one on the left measures less than 2 cm posteriorly and inferiorly in the midline. The one on the right is even smaller than this. Normal heart. No thoracic aortic aneurysm. There are small mediastinal and hilar nodes. There is basilar atelectasis. Questionable tiny underlying infiltrates. No bronchiectasis. Abdomen and pelvis: There is fatty infiltration of the liver. The spleen is enlarged measuring 15.7 cm in AP diameter and 15.0 cm in length. Prominent inflammatory changes about the pancreas. No mass or well-defined pseudocyst. No pancreatic calcifications. Normal adrenal glands. No renal stones. No hydronephrosis. Moderate atherosclerosis. No aortic aneurysm. No bowel obstruction. There is a Mathews catheter in the urinary bladder. Normal appendix. No abscess. IMPRESSION: Chest: Small pleural effusions with basilar atelectasis Abdomen and pelvis: 1. Persistent severe pancreatitis with no interval improvement 2. Fatty liver 3. Splenomegaly This exam was performed using automated exposure control, adjustment of mA or kV according to patient size, and/or use of iterative reconstruction technique. Electronically signed by Jose Luis Guillen 07/20/2018 9:10 AM
[2018-07-20] MEDS: MAXIPIME 1 GM in NS 50 ML IV SCH (09:13)
--- NOTE | 2018-07-20 11:16 | GASTROENTEROLOGY PROGRESS NOTE ---
DATE: 07/20/2018 SUBJECTIVE: No acute overnight events. Afebrile. No N/V, CP, SOB, abdominal pain. good UOP. Tolerating clears. +BM OBJECTIVE: Vital Signs: Temperature 99 degrees, heart rate 95, respiratory rate 22, blood pressure 149/92, O2 saturation 100% on RA GEN: awake, alert, NAD; significantly improved mental status HEENT; anicteric, MMM NECK: no JVD, LAD CARDIAC: RRR, no mrg ABD: obese, distended, NT, NABS, no rebound or guarding Extremities: No clubbing, cyanosis, or edema. NEURO: nonfocal LABS: hgb 7.4 from 7.7 Cr 4.4 LFTs WNL, albumin 2.6 ASSESSMENT AND PLAN: Mr. Villanueva is a 47-year-old gentleman admitted with acute pancreatitis complicated by hypoxic respiratory failure, pneumonia acute kidney injury, acute liver injury, encephalopathy, anemia. He has improved significantly since last week. Pancreatis has resolved clinically. #Pancreatitis: resolved - advance diet to low fat,diabetic as tolerated - patient will need CCY at some point; defer timing to surgery - continue triglycerides, avoid alcohol #Acute hypoxic and hypercapnic respiratory failure; resolved; on RA #PNA: on abx as per ID: consider discontinuing #JUAN: improving; good UOP; renal following #Encephalopathy: multifactorial; resolving #Anemia: continue PPI; hgb stable; no overt bleeding; trend H/H daily; transfuse prn for goal hgb 7-8; patient will likely need outpatient EGD/ colonoscopy when acute issues resolve #DM2: on SSI #Abnormal LFTs: downtrending We will follow with you. Please call with any questions or concerns. [facility]
--- NOTE | 2018-07-20 12:14 | NEPHROLOGY PROGRESS NOTE ---
DATE: 07/20/2018 SUBJECTIVE: The patient is resting in bed. His eyes are open. He does not verbalize other than to say "yeah" when I talk with him. OBJECTIVE: Vital signs: Temperature 98.8, pulse 95, respiratory rate 22, blood pressure 154/102, intake 3.4 L, output 8.2 L. General: Middle-aged gentleman resting in bed. He continues to remain in restraints. HEENT: Normocephalic, atraumatic. PAUL. Oral mucosa is dry. Neck: Supple, no JVD. Cardiovascular: Regular rate and rhythm, occasionally tachycardic. Pulmonary: He has equal excursion. He has no wheeze. He does have some rhonchi bilaterally and decreased breath sounds to the bases. Abdomen: Round, hypoactive bowel sounds. : Mathews catheter with pale clear yellow urine. Extremities: No clubbing, cyanosis, trace edema. Integumentary: The skin is warm and dry. LABORATORY DATA: WBC 8.5, hemoglobin 7.6. Sodium 149, potassium 3.2, CO2 of 26 , BUN 55, creatinine 5.1. ASSESSMENT AND PLAN: 1. Acute kidney injury. His creatinine has stabilized overnight. He has been receiving significantly large doses of diuretics with excellent urine output. His last dose of the diuretic was this morning. Will monitor and see what his numbers look like tomorrow. He has no indications for intervention other than his current treatment plan at this time. 2. Acute pancreatitis followed by Primary Care. 3. Electrolytes/acid-base balance/anemia. He does have some modest anemia. His hemoglobin is fairly stable over the last 24 hours. Will defer to the primary team. We have no objections to transfusion if they see fit. Dictated by KT Kim for Harlan Funes MD Data reviewed, discussed with Gail Lopez on 07/20/28. I agree with the above assessment and plan of care. cc: Harlan Funes MD [facility]
[2018-07-20] MEDS: D5W 1,000 ML IV SCH (13:41)
--- NOTE | 2018-07-20 13:51 | PULMONOLOGY PROGRESS NOTE ---
DATE: 07/20/2018 SUBJECTIVE: Patient is moaning. He does attempt to open his eyes to stimulation. He is on BiPAP. He has no increased work of breathing. OBJECTIVE: Vital Signs: The patient has been afebrile this morning with maximum temperature in the last 24 hours 100.0 degrees. BP 167/92, heart rate 96, respiratory rate 23, oxygen saturation 100%. He is actually currently on Ventimask, not BiPAP. HEENT: Pupils are equal and reactive. Oropharynx is clear. Neck: Supple. Chest: Reveals abdominal distention with diminished bowel sounds. Extremities: Reveal 1+ edema. LABORATORIES: Arterial blood gas reveals pH 7.46, pCO2 of 72, PO2 of 73 on BiPAP. Sodium 149, potassium 3.2, chloride 108, bicarbonate 26, BUN 55, creatinine 5.1. White blood count 8.54, hemoglobin 7.6, platelet count 300. IMAGING STUDIES: Chest x-ray reveals shallow lung volumes with possible small effusion at the left base which is unchanged. CT scan of the abdomen and pelvis reveals small basilar effusions/atelectasis/pneumonia with fatty liver, splenomegaly and some inflammatory changes around the pancreas. Pancreatic edges are still discernable. IMPRESSION: A 42 year old with obesity, diabetes, pancreatitis, acute hypoxemic and hypercapnic respiratory failure, delirium, acute renal failure, and tobacco use. He has had good diuresis over the last 24 hours. RECOMMENDATIONS: 1. Continue to cycle oxygen and BiPAP as needed. 2. A p.o. intake suggested by the GI service. Patient's mental status remains poor, making p.o. intake difficult. Nurse reports an NG tube is being placed. Would check residuals before initiating tube feedings. 3. Continue to follow Nephrology's recommendations for acute renal failure. 4. Continue free water for hypernatremia. 5. Continue intensive care unit status. Patient is still at risk for decompensation requiring intubation. cc: Dixon Gresham MD
--- NOTE | 2018-07-20 14:21 | PROGRESS NOTE ---
DATE: 07/20/2018 Mr. Villanueva completed the 36-hour continuous IV lorazepam course. He has had some periods of restlessness requiring a few p.r.n. doses of lorazepam and haloperidol since then. At the time of my exam, he was calm, quiet, moving each limb spontaneously. He answered simple questions with grumbling and dysarthric speech, some of which I could understand. He followed simple commands consistently. There is no meningismus. I do not have any new thoughts from Neurology standpoint at this time. We might consider EEG later. He appears to be displaying a global encephalopathy with medication effect and question of a drug withdrawal syndrome. We have not seen evidence of increased intracranial pressure, focal brain lesion, seizure, [employer] infection. Thanks for asking Neurology to see Mr. Villanueva. cc: MD CHRISTIE Orellana III
--- NOTE | 2018-07-20 14:28 | Diag Imaging Result Doc PS360 ---
EXAM: CHEST-PORTABLE HISTORY: Nasogastric tube placement confirmation TECHNIQUE: Chest single view COMPARISON: 5:19 AM. FINDINGS: Interval placement of a nasogastric tube. This overlies the esophagus and enters the stomach. The tip is beyond the film. No other interval change. IMPRESSION: Nasogastric tube enters the stomach. Electronically signed by Jose Luis Guillen 07/20/2018 2:26 PM
--- NOTE | 2018-07-20 20:06 | PROGRESS NOTE ---
DATE: 07/20/2018 SUBJECTIVE: The patient remains confused. He is in 4 point restraints. OBJECTIVE: Vital Signs: Temperature 98.3 degrees, blood pressure 163/95, heart rate 99, respirations 22, and O2 saturation 97% on 5 liters nasal cannula. Urine output 8.2 L. General: This is a chronically ill-appearing middle-aged male lying in bed in no acute distress. HEENT: Head normocephalic, atraumatic. Heart: S1, S2 normal. Regular rate and rhythm. Lungs: No wheezing, no rales, no rhonchi. Abdomen: Positive bowel sounds, distended, firm. No rebound tenderness. Extremities: No edema, no cyanosis. Neurologic: The patient is sedated. He does awaken and move all 4 extremities. LABORATORY DATA: White blood cell count 8.5, hemoglobin 7.6, hematocrit 25, platelets 300,000. Sodium 149, potassium 3.2, chloride 108, CO2 of 26, BUN 55, creatinine 5.1, glucose 219, calcium 8.1, phosphorus 4.5. A CT of the chest, abdomen, and pelvis revealed small pleural effusions with a basilar atelectasis. Fatty liver disease. Severe pancreatitis. ASSESSMENT AND PLAN: 1. Acute hypoxemic respiratory failure. Multifactorial. We will continue with the current treatment regimen. 2. Pneumonia. Continue with broad-spectrum antibiotics. 3. Acute pulmonary edema. Improved. The patient received diuretic therapy yesterday. 4. Hypernatremia. The patient is on D5W. We will also increase the free water flushes through the nasogastric tube. 5. Uncontrolled hypertension. Continue on the Catapres patch plus as needed labetalol. 6. Severe acute pancreatitis. Unchanged. We will continue with supportive therapy. Gastrointestinal is following. 7. Global encephalopathy with delirium. The etiology is unknown. However, I suspect that this is related to the patient's multiple medical issues. We will continue to monitor the patient for improvement. 8. Uncontrolled insulin-dependent diabetes mellitus. Continue on Levemir twice a day and sliding scale insulin. 9. Anemia. The patient's hemoglobin and hematocrit is low but stable. 10. Hypokalemia. Will replace the patient's potassium. 11. Acute kidney injury. Unchanged. The patient has excellent urine output. Nephrology is following. 12. Severe protein-calorie malnutrition. The patient's abdomen is very distended. A nasogastric tube will be placed to low intermittent suction. We will likely try and start tube feeds tomorrow if there are no contraindications. 13. Gastrointestinal prophylaxis. Continue on intravenous Protonix. 14. Deep vein thrombosis prophylaxis. Continue on heparin. 15. Disposition. The patient is critically ill with a high risk of mortality. cc: Renée Guillen MD
[2018-07-20] MEDS ORDERED: LASIX IV ONE (21:00)
[2018-07-20] MEDS: LABETALOL IV PRN (22:55)
[2018-07-21] MEDS: D5W 1,000 ML IV SCH (02:24)
[2018-07-21] MEDS: HALDOL IV PRN (02:24)
[2018-07-21] MEDS: ATROVENT NEB INH SCH ×6 (03:55→23:20)
[2018-07-21] MEDS: XOPENEX NEB INH SCH ×6 (03:55→23:20)
[2018-07-21 05:14] LABS: ALLEN TEST YES; BE 7.4 mmoll (-3.0-3.0); BLOOD TYPE ARTERIAL; HCO3-(ACT) 30.7 mmoll (20.0-26.0); METHB 1.3 % (0.0-1.5); O2(CT) 11.3 mL/dL (15.0-23.0); O2HB 93.7 % (95.0-99.0); PCO2(98.6) 45 mmHg (35-45); PO2(98.6) 72 mmHg (60-100); SAMPLE BLOOD; THB 8.5 g/dL (11.5-17.4); pH(98.6) 7.46 (7.35-7.45)
[2018-07-21 05:17] LABS: MODALITY CANNULA
[2018-07-21 05:53] LABS: BASO# 0.04 X1000 (0.0-0.2); BASO% 0.4 % (0.0-0.8); EOS# 0.18 X1000 (0.0-0.7); EOS% 1.8 % (0.0-10.0); HEMATOCRIT 27.3 % (42.0-52.0); HEMOGLOBIN 8.3 g/dL (14.0-18.0); IMM GRAN# 0.09 X1000 (0.0-0.04); IMM GRAN% 0.9 % (0.0-0.5); LYMPH# 1.12 X1000 (1.2-3.4); LYMPH% 11.4 % (20.5-51.1); MCH 28.4 PG (27-31); MCHC 30.4 g/dL (33-37); MCV 93.5 FL (81-99); MONO# 0.53 X1000 (0.11-0.59); MONO% 5.4 % (1.7-9.3); MPV 11.4 FL (7.4-10.4); NEUT# 7.88 X1000 (1.4-6.5); NEUT% 80.1 % (42.2-75.2); PLT 326 X1000 (130-400); RBC 2.92 XMIL (4.7-6.1); RDW 14.7 % (11.5-14.5); WBC 9.84 X1000 (4.8-10.8)
[2018-07-21 06:53] LABS: ALB/GLOB RATIO 0.7; ALBUMIN 2.7 g/dL (3.5-5.0); CALCIUM 8.4 mg/dL (8.8-10.2); CREATININE 4.8 mg/dL (0.7-1.2); DIRECT BILIRUBIN 0.1 mg/dL (0.00-0.20); POTASSIUM 3.6 mmol/L (3.5-5.1); TOTAL BILIRUBIN 0.28 mg/dL (0.20-1.00); TOTAL PROTEIN 6.6 g/dL (6.3-8.3)
[2018-07-21] MEDS: HUMULIN R SUBQ SCH ×4 (07:02→21:06)
[2018-07-21] MEDS: HEPARIN SUBQ SCH ×3 (07:02→21:04)
--- NOTE | 2018-07-21 07:14 | Diag Imaging Result Doc PS360 ---
EXAM: CHEST-PORTABLE HISTORY: respiratory failure TECHNIQUE: Portable chest COMPARISON: 07/20/2018 FINDINGS: Poor inspiratory effort. Nasogastric tube overlies the esophagus and stomach. No cardiomegaly. There may be a small left pleural effusion. No consolidation. IMPRESSION: Stable chest. Electronically signed by Jose Luis Guillen 07/21/2018 7:11 AM
[2018-07-21] MEDS: ZYVOX 600 MG/D5W 600 MG/300 ML IVPB IV SCH ×2 (07:47→21:02)
[2018-07-21] MEDS: CENTRUM SILVER PO SCH (08:43)
[2018-07-21] MEDS: LEVEMIR SUBQ SCH ×2 (09:23→21:05)
[2018-07-21] MEDS: MAXIPIME 1 GM in NS 50 ML IV SCH (09:23)
[2018-07-21] MEDS: CLINIMIX E 4.25%-5% SOLUTION 1,000 ML IV SCH ×2 (09:27→21:00)
--- NOTE | 2018-07-21 09:55 | Diag Imaging Result Doc PS360 ---
EXAM: ABDOMEN FLAT/UPRIGHT HISTORY: abdominal distention TECHNIQUE: Flat and upright abdomen, three views COMPARISON: 07/19/2018 FINDINGS: There is a nasogastric tube overlying the stomach. The bowel loops are not dilated. No organomegaly. IMPRESSION: No distended bowel loops identified. Electronically signed by Jose Luis Guillen 07/21/2018 9:53 AM
[2018-07-21] MEDS: 1/2 NS 1,000 ML IV SCH ×2 (09:57→20:59)
[2018-07-21] MEDS: PROTONIX IV SCH ×2 (10:53→21:04)
--- NOTE | 2018-07-21 13:54 | NEPHROLOGY PROGRESS NOTE ---
DATE: 07/21/2018 SUBJECTIVE: Patient resting in bed. Really nonresponsive today. OBJECTIVE: Vital Signs: Temperature 98.3 degrees, pulse 94,respiratory rate 16, blood pressure 126/73. Intake 3 L; output 6.1 L plus multiple liquid stools. General: This is a middle-aged gentleman resting in bed. He is in no acute distress. He is really nonverbal. He will moan if he is agitated. HEENT: Normocephalic, atraumatic. Oral mucosa dry. Neck: Supple. Cardiovascular: Regular rate and rhythm. Pulmonary: He has equal excursion. He has no wheeze or rhonchi. Abdomen: Distended. Positive bowel sounds. : Mathews catheter. Also, has bowel management system in place. Extremities: Trace edema dependent. Integumentary: Skin is warm and dry. LAB DATA: WBC of 9.8, hemoglobin 8.3. Sodium 149, potassium 3.9, CO2 28, BUN 58, creatinine 4.8 (5.1). ASSESSMENT AND PLAN: 1. Acute kidney injury. Renal function continues with modest improvement. Continue to monitor. He has not received large doses of diuretics over the last 24 hours, but has continued to have profound urine output along with liquid stools. There was concern that we may actually be tipping him over to the dry side. We will start some half-normal saline for some fluid balance today. Continue to monitor closely. 2. Pancreatitis followed by primary. 3. Pneumonia. No changes needed to current antibiotic treatment. Dictated by KT Kim for Harlan Funes MD cc: Harlan Funes MD
--- NOTE | 2018-07-21 14:45 | PULMONOLOGY PROGRESS NOTE ---
DATE: 07/21/2018 SUBJECTIVE: The patient had an NG tube placed yesterday. He had 800 mL out and continues to have significant drainage. His abdomen is softer. He is more awake and alert. He is conversant. OBJECTIVE: Vital Signs: The patient has been afebrile for the last 24 hours. Blood pressure 169/89, heart rate 90, respiratory rate nineteen, and oxygen saturation 95%. HEENT: Pupils are equal and reactive. Oropharynx is clear. Neck: Supple. Chest: Reveals shallow breath sounds bilaterally with occasional crackles in the bases. Cardiac exam: S1, S2. Abdomen: Obese and softer with rare bowel sounds. Extremities: Reveal +1 edema. LABORATORIES/X-RAYS: Chest x-ray reveals no evidence of infiltrates, and he has a small effusion on the left. Abdominal x-ray reveals NG tube overlying the stomach without evidence of obstruction. White blood count 9.84, hemoglobin 8.3, platelet count 326,000. Sodium 149, potassium 3.6, chloride 105, bicarbonate 28. BUN 54, creatinine 4.8. Arterial blood gas: A pH 7.46, pCO2 of 45, PO2 of 72 on 4 L per nasal cannula. IMPRESSION: A 42 year old with obesity, acute pancreatitis, newly-diagnosed diabetes mellitus, acute hypoxemic respiratory failure, delirium, tobacco use and acute renal failure. Patient's mental status has improved. He has had excellent diuresis over the last 24 hours. His BUN and creatinine are decreasing. His oxygen requirements are also decreasing. RECOMMENDATIONS: 1. Continue to cycle BiPAP and oxygen as needed. 2. Suggest clamping NG tube and checking residuals. When residuals have diminished, would recommend cautious advancement of diet. 3. Continue free water replacement. 4. Continue intensive care unit monitoring. His status has been fluctuating, and he is at risk for decompensation. cc: Dixon Gresham MD
--- NOTE | 2018-07-21 19:33 | PROGRESS NOTE ---
DATE: 07/21/2018 SUBJECTIVE: The patient is more awake today. He is able to answer question. He states that he is thirsty. He has had significant NG tube output since it was placed yesterday. His abdomen is also softer. OBJECTIVE: Vital Signs: Temperature 98.6 degrees blood pressure 135/81, heart rate 91, respirations 20, O2 saturation 98% on 4 L nasal cannula, urine output 6 L. General: This is a morbidly obese male lying in bed in no acute distress. Head: Normocephalic, atraumatic. Heart: S1, S2 normal. Regular rate and rhythm. Lungs: Equal air entry bilaterally. No crackles, no rales. Abdomen: Positive bowel sounds. Soft, nontender, mildly distended. Extremities: No edema, no cyanosis. Neuro: The patient is alert and oriented to self. He is able to move all 4 extremities. LABS: White blood cell count 9.8, hemoglobin 8.3, hematocrit 27, platelets 326, 000, sodium 149, potassium 3.6, chloride 105, CO2 28, BUN 54, creatinine 4.8, glucose 215, calcium 8.4, phosphorus 5, AST 19, ALT 58, alkaline phosphatase 143, albumin 2.7. Abdominal x-ray unremarkable. Chest x-ray shows a small left pleural effusion. No consolidation. ASSESSMENT AND PLAN: 1. Acute hypoxemic respiratory failure. Slowly improving. The patient is off of BiPAP and is currently on nasal cannula. 2. Pneumonia. Continue with antibiotic therapy as directed by Dr. Tate. 3. Delirium. Slowly improving. We will continue to monitor the patient closely. 4. Hypernatremia. Will order free water flushes to be given through the NG tube. 5. Acute kidney injury. Slowly improving. Further management as per the summer sessions director. 6. Severe protein calorie malnutrition. Will restart Clinimix until the patient is stable enough for p.o. intake. 7. Hypertension. Improved. Continue on the clonidine patch. 8. Acute pancreatitis. Continue with supportive care. 9. Anemia. Improved. Continue to monitor the hemoglobin and hematocrit closely. 10. Insulin-dependent diabetes mellitus. Continue on Levemir and sliding scale insulin. 11. Gastrointestinal prophylaxis. Continue on Protonix. 12. Deep vein thrombosis prophylaxis. Continue on heparin. cc: MD CHRISTIE Michelle
[2018-07-22] MEDS: PROTONIX IV SCH ×3 (01:23→22:03)
[2018-07-22] MEDS: ATROVENT NEB INH SCH ×6 (03:48→23:25)
[2018-07-22] MEDS: XOPENEX NEB INH SCH ×6 (03:48→23:10)
[2018-07-22 04:47] LABS: ALLEN TEST YES; BE 5.8 mmoll (-3.0-3.0); BLOOD TYPE ARTERIAL; HCO3-(ACT) 29.5 mmoll (20.0-26.0); METHB 1.4 % (0.0-1.5); O2HB 96.1 % (95.0-99.0); PCO2(98.6) 40 mmHg (35-45); PO2(98.6) 158 mmHg (60-100); SAMPLE BLOOD; SAO2 99.3 % (95.0-100.0); THB 7.9 g/dL (11.5-17.4); pH(98.6) 7.48 (7.35-7.45)
[2018-07-22 04:49] LABS: MODALITY BI PAP
[2018-07-22] MEDS: CLINIMIX E 4.25%-5% SOLUTION 1,000 ML IV SCH ×2 (05:50→13:27)
[2018-07-22] MEDS: ZYVOX 600 MG/D5W 600 MG/300 ML IVPB IV SCH ×3 (05:50→21:57)
[2018-07-22] MEDS: 1/2 NS 1,000 ML IV SCH (05:51)
[2018-07-22] MEDS: HEPARIN SUBQ SCH ×3 (05:51→22:00)
[2018-07-22] MEDS: HUMULIN R SUBQ SCH ×5 (05:52→21:58)
--- NOTE | 2018-07-22 07:40 | Diag Imaging Result Doc PS360 ---
EXAM: CHEST-PORTABLE - 07/22/2018 HISTORY: respiratory failure TECHNIQUE: Portable chest COMPARISON: 07/21/2018 FINDINGS: Nasogastric tube and PICC remain in place. Heart size is normal. Inspiration is mildly shallow. There is mild subsegmental atelectasis at the left base. The remainder of the lungs appear essentially clear. There is no pleural effusion or pneumothorax identified. IMPRESSION: Mildly shallow inspiration. Mild subsegmental atelectasis at left base. Electronically signed by Adán Negron 07/22/2018 7:37 AM
[2018-07-22] MEDS: MAXIPIME 1 GM in NS 50 ML IV SCH (08:32)
[2018-07-22] MEDS: LEVEMIR SUBQ SCH ×2 (08:32→21:59)
[2018-07-22] MEDS: CENTRUM SILVER PO SCH (08:39)
[2018-07-22 09:00] LABS: BASO# 0.03 X1000 (0.0-0.2); BASO% 0.4 % (0.0-0.8); EOS# 0.14 X1000 (0.0-0.7); EOS% 1.8 % (0.0-10.0); HEMATOCRIT 25.7 % (42.0-52.0); HEMOGLOBIN 7.7 g/dL (14.0-18.0); IMM GRAN# 0.12 X1000 (0.0-0.04); IMM GRAN% 1.5 % (0.0-0.5); LYMPH# 1.22 X1000 (1.2-3.4); LYMPH% 15.3 % (20.5-51.1); MCH 28.3 PG (27-31); MCV 94.5 FL (81-99); MONO# 0.33 X1000 (0.11-0.59); MONO% 4.1 % (1.7-9.3); MPV 11.1 FL (7.4-10.4); NEUT# 6.12 X1000 (1.4-6.5); NEUT% 76.9 % (42.2-75.2); PLT 293 X1000 (130-400); RBC 2.72 XMIL (4.7-6.1); RDW 14.3 % (11.5-14.5); WBC 7.96 X1000 (4.8-10.8)
[2018-07-22 09:27] LABS: ALB/GLOB RATIO 0.6; ALBUMIN 2.4 g/dL (3.5-5.0); CALCIUM 7.9 mg/dL (8.8-10.2); CREATININE 4.7 mg/dL (0.7-1.2); DIRECT BILIRUBIN 0.1 mg/dL (0.00-0.20); POTASSIUM 3.4 mmol/L (3.5-5.1); TOTAL BILIRUBIN 0.21 mg/dL (0.20-1.00); TOTAL PROTEIN 6.1 g/dL (6.3-8.3)
--- NOTE | 2018-07-22 10:57 | Diag Imaging Result Doc PS360 ---
EXAM: CHEST-PORTABLE - 07/22/2018 HISTORY: Nasogastric tube placement confirmation TECHNIQUE: Portable exam for nasogastric tube placement COMPARISON: None. FINDINGS: The tip of nasogastric tube is at the expected location of the proximal stomach. IMPRESSION: Nasogastric tube extending into proximal stomach. Electronically signed by Adán Negron 07/22/2018 10:55 AM
--- NOTE | 2018-07-22 11:33 | NEPHROLOGY PROGRESS NOTE ---
DATE: 07/22/2018 SUBJECTIVE: Patient waiting to be transferred upstairs to a regular medical bed. He is asking to see his family. OBJECTIVE: Vital Signs: Temperature 99 degrees, pulse 104, respiratory rate 14, blood pressure 124/66. Intake 5.7 L. Output 2.1 L. General: This is a middle-aged gentleman, resting in bed. He is awake and alert. He does appear confused during conversation. HEENT: Normocephalic, atraumatic. Oral mucosa moist. Dentition poor. Neck: Supple. No JVD. Cardiovascular: Regular rate and rhythm. Pulmonary: No rales or wheezes. Equal excursion. Abdomen: Mildly distended. Positive bowel sounds. : Mathews catheter. Yellow urine noted. Extremities: No clubbing, cyanosis. Trace edema. Integumentary: Skin is warm and dry. LAB DATA: WBC of 7.9, hemoglobin 7.7. Sodium 144, potassium 3.1, CO2 27, BUN 55, creatinine 4.7. Chest x-ray with mild atelectasis. No pleural effusion. ASSESSMENT AND PLAN: 1. Acute kidney injury. Continues to improve. We initiated some IV fluids yesterday because he had been in consistent negative territory after an episode of pulmonary edema and diuretics. He had TPN initiated yesterday, along with some IV fluids. From our standpoint, he is in positive territory today so will stop his IV fluids and continue with the TPN per the primary. Continue to monitor. No indication for intervention otherwise. 2. Acute hypoxemic respiratory failure. Remains off BiPAP. He is on nasal cannula. No issues noted. 3. Pneumonia. Antibiotics are appropriately dosed. He is on cefepime and Zyvox currently. 4. Pancreatitis, improving. Dictated by KT Kim for Harlan Funes MD cc: Harlan Funes MD
--- NOTE | 2018-07-22 14:41 | PROGRESS NOTE ---
DATE: 07/22/2018 SUBJECTIVE: The patient is more awake and alert today. No acute events noted overnight. OBJECTIVE: Vital Signs: Temperature 98.6 degrees, blood pressure 151/68, heart rate 93, respirations 17, O2 saturation is 100% on 4 L nasal cannula. Urine output 2.1 L. General: This is a chronically ill-appearing, middle-aged male lying in bed, in no acute distress. Heart: S1, S2 normal. Regular rate and rhythm. Lungs: Clear to auscultation bilaterally. Abdomen: Positive bowel sounds. Soft, nontender, nondistended. Extremities: No edema. No cyanosis. Neurologic: The patient is alert and oriented x3. LABS: White blood cell count 7.9, hemoglobin 7.7, hematocrit 25, platelets 293, 000. Sodium 144, potassium 3.4, chloride 102, CO2 27, BUN 55, creatinine 4.7, glucose 265. Chest x-ray shows subsegmental atelectasis at the left lung base. ASSESSMENT AND PLAN: 1. Acute hypoxemic respiratory failure. The patient is on nasal cannula. Continue with the current treatment regimen. 2. Pneumonia. Improved. Continue with antibiotic and bronchodilator therapy. 3. Delirium. Resolved. 4. Acute kidney injury. Slowly improving. The patient's urine output is adequate. Will avoid nephrotoxic agents. 5. Acute pancreatitis. Continue with supportive care. GI is following. 6. Hypertension. Continue on the current medications. 7. Anemia. The patient's hemoglobin and hematocrit are a little low today. We will continue to monitor and transfuse as necessary. 8. Hypokalemia. Will replace the patient's potassium. 9. Insulin dependent diabetes mellitus. Continue on Levemir and sliding scale insulin. 10. Severe protein calorie malnutrition. If the patient continues to improve, will start clear liquids tomorrow. 11. Tobacco dependence. The patient has been counseled about smoking cessation. 12. Deep vein thrombosis prophylaxis. Continue on heparin. cc: MD CHRISTIE Michelle
--- NOTE | 2018-07-22 15:06 | PULMONOLOGY PROGRESS NOTE ---
DATE: 07/22/2018 SUBJECTIVE: Patient is awake, alert and conversant. Mental status is the best that I have seen during this hospitalization. He is without specific complaints. He is tearful that he cannot be with his children. OBJECTIVE: Patient has been afebrile for the last 24 hours. Blood pressure 131/66, heart rate 98, respiratory rate 22, oxygen saturation 100% on 4 L per nasal cannula.HEENT: Pupils are equal and reactive. Oropharynx is clear. Neck: Is supple. Chest: Reveals occasional rhonchi bilaterally. Cardiac: S1-S2. Abdomen: Soft with diminished bowel sounds. Extremities: Without edema. LABORATORIES: Chest x-ray reveals shallow inspiration with mild atelectasis at the left base but otherwise clear. White blood count 7.96, hemoglobin 7.7, platelet count 293,000. Chemistry. Sodium 144, potassium 3.4, chloride 102, bicarbonate 27, BUN 55, creatinine 4.7, glucose 265. IMPRESSION: The patient is a 47-year-old with obesity, acute pancreatitis, hypertriglyceridemia, newly diagnosed diabetes mellitus, acute hypoxemic respiratory failure, ongoing tobacco use, acute renal failure, and delirium. Patient's mental status continues to improve. RECOMMENDATION: 1. Continue to cycle BiPAP and oxygen as needed. 2. Continue clamping NG tube. When residuals have diminished, would recommend decreasing NG tube and cautiously advancing diet. 3. Recommend initiating physical therapy and began mobilizing the patient out of the bed. 4. Patient continues to improve. Agree with plans for transfer to the floor. cc: Dixon Gresham MD
[2018-07-23] MEDS: ATROVENT NEB INH SCH ×6 (03:30→23:38)
[2018-07-23] MEDS: XOPENEX NEB INH SCH ×6 (03:30→23:39)
[2018-07-23] MEDS: CLINIMIX E 4.25%-5% SOLUTION 1,000 ML IV SCH ×2 (04:26→16:55)
[2018-07-23 05:45] LABS: ALLEN TEST YES; BE 1.4 mmoll (-3.0-3.0); BLOOD TYPE ARTERIAL; METHB 1.4 % (0.0-1.5); MODALITY CANNULA; O2(CT) 10.3 mL/dL (15.0-23.0); O2HB 95.2 % (95.0-99.0); PCO2(98.6) 44 mmHg (35-45); PO2(98.6) 88 mmHg (60-100); SAMPLE BLOOD; SAO2 98.6 % (95.0-100.0); THB 7.6 g/dL (11.5-17.4); pH(98.6) 7.39 (7.35-7.45)
[2018-07-23] MEDS: HUMULIN R SUBQ SCH ×4 (06:24→22:03)
[2018-07-23] MEDS: HEPARIN SUBQ SCH ×3 (06:27→22:02)
--- NOTE | 2018-07-23 06:46 | Diag Imaging Result Doc PS360 ---
EXAM: CHEST-PORTABLE HISTORY: respiratory failure TECHNIQUE: Chest single view COMPARISON: 07/22/2018 FINDINGS: The lungs are well expanded. The heart is not enlarged. The vessels are only mildly distended. A nasogastric tube overlies the esophagus and upper stomach. No change in the left-sided PICC line. There are no infiltrates. No effusion identified. IMPRESSION: Minimal vascular prominence. Electronically signed by Jose Luis Guillen 07/23/2018 6:44 AM
[2018-07-23 07:08] LABS: BASO# 0.02 X1000 (0.0-0.2); BASO% 0.3 % (0.0-0.8); EOS# 0.13 X1000 (0.0-0.7); EOS% 1.8 % (0.0-10.0); HEMATOCRIT 24.7 % (42.0-52.0); HEMOGLOBIN 7.4 g/dL (14.0-18.0); IMM GRAN# 0.06 X1000 (0.0-0.04); IMM GRAN% 0.8 % (0.0-0.5); LYMPH# 0.78 X1000 (1.2-3.4); LYMPH% 10.8 % (20.5-51.1); MCH 28.5 PG (27-31); MONO# 0.39 X1000 (0.11-0.59); MONO% 5.4 % (1.7-9.3); NEUT# 5.86 X1000 (1.4-6.5); NEUT% 80.9 % (42.2-75.2); PLT 284 X1000 (130-400); RDW 14.1 % (11.5-14.5); WBC 7.24 X1000 (4.8-10.8)
[2018-07-23 07:44] LABS: ALB/GLOB RATIO 0.6; ALBUMIN 2.6 g/dL (3.5-5.0); CALCIUM 8.8 mg/dL (8.8-10.2); CREATININE 4.4 mg/dL (0.7-1.2); DIRECT BILIRUBIN 0.1 mg/dL (0.00-0.20); MAGNESIUM 2.6 mg/dL (1.5-2.7); POTASSIUM 3.7 mmol/L (3.5-5.1); TOTAL BILIRUBIN 0.2 mg/dL (0.20-1.00)
[2018-07-23] MEDS: PROTONIX IV SCH ×2 (08:06→11:44)
[2018-07-23] MEDS: ZYVOX 600 MG/D5W 600 MG/300 ML IVPB IV SCH (09:02)
[2018-07-23] MEDS: CENTRUM SILVER PO SCH (09:06)
[2018-07-23] MEDS: LEVEMIR SUBQ SCH ×2 (09:07→22:02)
[2018-07-23] MEDS: MAXIPIME 1 GM in NS 50 ML IV SCH (11:00)
--- NOTE | 2018-07-23 11:49 | PROGRESS NOTE ---
DATE: 07/23/2018 SUBJECTIVE: This morning Mr. Villanueva is sitting on the side of the bed, awake, alert, oriented, and attentive. He had appropriate conversation with me. He demonstrates good power symmetrically in the limbs. Extraocular movements are full. Head and neck are unremarkable. He is able to provide some firsthand history today. He reports feeling sick with dizziness and nausea at approximately Thanksgiving. Those symptoms persisted and he developed intense belly ache over the following month or so. He presented to the hospital nearly 3 weeks ago. He reports gradually reducing his hydrocodone from twice a day to twice some days and once a day some days prior to this admission. He is absolutely certain he did not take more pain medication than was prescribed. He denies benzodiazepine use, sedative use, illicit drug use. He reports very infrequent ethanol use. IMPRESSION: Global encephalopathy. This seems almost completely resolved now. Explanation for the encephalopathy is not certain to me. Since he is doing so well, I do not have any suggestion from neurologic standpoint. We have considered further brain imaging and EEG, but I do not think either of those is necessary at this point. Thanks for asking Neurology to see Mr. Villanueva. cc: MD CHRISTIE Orellana III
--- NOTE | 2018-07-23 13:32 | PROGRESS NOTE ---
DATE: 07/23/2018 SUBJECTIVE: The patient is awake and alert. He states that he is hungry. Otherwise, he has no other complaints. OBJECTIVE: Vital Signs: Temperature 98.9 degrees, blood pressure 131/75, heart rate 112, respirations 18, O2 saturations 97% on 2 L nasal cannula, and urine output 2.2 L. General: This is a morbidly obese male sitting at the edge of the bed in no acute distress. Heart: S1, S2 normal. Tachycardic. Lungs: Diminished breath sounds at the bases. No wheezing. No rales. Abdomen: Positive bowel sounds. Soft, nontender, and nondistended. Extremities: No edema, no cyanosis. No calf tenderness. Neurologic: The patient is alert and oriented x3. No focal neurologic deficits noted. LABORATORY: White blood cell count 7.2, hemoglobin 7.4, hematocrit 24, and platelets 284,000. Sodium 143, potassium 3.7, chloride 103, CO2 25, BUN 62, creatinine 4.4, glucose 210, and magnesium 2.6. Chest x-ray shows no infiltrates. ASSESSMENT AND PLAN: 1. Pneumonia improved. The chest x-ray is much improved. We will await further recommendations regarding continuation of the antibiotic therapy. 2. Delirium. Resolved. 3. Acute kidney injury slowly improving. Nephrology is following. 4. Acute pancreatitis. We will start the patient on clear liquids today. Continue with supportive care. 5. Hypertension. Continue on the current antihypertensive regimen. 6. Anemia. Hemoglobin and hematocrit a little bit lower today. We will continue to monitor closely and transfuse as necessary. 7. Insulin-dependent diabetes mellitus. Continue on Levemir and sliding scale insulin. 8. Severe protein calorie malnutrition. The patient has been started on a clear liquid diet. We will advance as tolerated. 9. Tobacco dependence. The patient has been counseled about smoking cessation. 10. Deep vein thrombosis prophylaxis. Continue on heparin. 11. Disposition. Physical Therapy has been consulted. cc: Renée Guillen MD
--- NOTE | 2018-07-23 14:21 | NEPHROLOGY PROGRESS NOTE ---
DATE: 07/23/2018 TIME SEEN: 0755 SUBJECTIVE: Mr. Villanueva is resting quietly in bed. Head of the bed is elevated. Denies any pain. Would like to have his NG tube out and start on liquid diet. OBJECTIVE: Vital Signs: Temperature 98 degrees, blood pressure 158/93, heart rate 97, respirations 18, he is on 3 L nasal cannula, last recorded saturation 96%. He has had 1625 in, 2200 out to Mathews catheter. LABS: Sodium 143, potassium 3.7, chloride 103, CO2 25, BUN 62, creatinine 40.4 , glucose of 210, his anion gap is 15, calcium 8.8, albumin 2.6, magnesium 2.6, white count 7.04 , hemoglobin 7.7, hematocrit 24.7, platelet count 284,000. ABGs pH 7.39, CO2 44, PO2 88, bicarb 26 on 2.5 L. PHYSICAL EXAM: General: This is a 47-year-old white male resting quietly in bed. He appears in no acute distress. Skin: Warm and dry. HEENT: Normocephalic, atraumatic. Conjunctiva is pale pink. He has PAUL. Mucous membranes are dry. Neck: Supple. Trachea midline. No evidence of JVD. Cardiovascular: Regular rate and rhythm. No appreciable murmur or gallop. Lungs: Clear to auscultation bilaterally. Equal excursion. Abdomen: Mildly distended. Positive bowel sounds. NG tube is clamped at this time. Genitourinary: Mathews catheter is in place with adequate urine out. Extremities: No clubbing or cyanosis. Trace edema. Integumentary: Skin is warm and dry. ASSESSMENT AND PLAN: 1. Acute kidney injury. Patient continues to improve. Intravenous fluids and nutrition had been initiated over the weekend. His creatinine is now down to 4.4. Adequate urine out noted. No indications for intervention. The patient remains on Clinimix in the place of his intravenous fluids. 2. Electrolytes and acid-base balance. These remain fairly stable. 3. Anemia. This remains low. We will defer to the primary care team for intervention for transfusion. 4. Pneumonia. Patient remains on renal dosed antibiotics. 5. Acute pancreatitis. This continues to be improved. Like to thank you for allowing us to follow with this patient. Dictated by KT Lizarraga for Harlan Funes MD Face to face encounter, data reviewed, discussed with Ovidio Manley on 07/23/18. I agree with the above assessment and plan of care. cc: KT Lizarraga MD [facility]
[2018-07-23] MEDS: NEXIUM PO SCH (18:35)
--- NOTE | 2018-07-23 23:47 | INFECTIOUS DISEASE PROGRESS NO ---
DATE: 07/23/2018 PRESENT ILLNESS: Mr. Villanueva has been treated for pneumonia to the left lower lobe , which seems to have cleared at this point. MEDICATIONS: He is on day 6 of treatment with cefepime 1 g IV every 24 hours as a renally modified dose, and Zyvox 600 mg IV every 12 hours. PHYSICAL EXAM: Vital Signs: Temperature is 100.1 degrees, pulse rate 100, respiratory rate 24, blood pressure 172/93, O2 saturation 98% on 2 L nasal cannula. General: This is a chronically ill-appearing middle-aged gentleman, he is sitting up on the side of the bed currently in no acute distress. HEENT: Atraumatic, normocephalic. Oral mucous membranes are pink and moist. Conjunctivae are pale. Neck: Supple. Trachea is midline. HEENT: Respiratory : Lung sounds are clear to auscultation. Cardiovascular: Heart rate and rhythm are regular and tachycardic, sinus tach on the monitor. Pedal and radial pulses are palpable bilaterally. 1+ pretibial edema bilaterally. Abdomen: Is soft, obese and nontender. Bowel sounds are active. Neurologic: He is awake, alert and oriented with mild weakness noted due to deconditioning. LABORATORY AND X-RAY: Today his white count is 7.24, hemoglobin 7.4, platelet count 284,000. Blood gas done today on 2.5 L nasal cannula showed a pH is 7.39, pCO2 44, PO2 88 , HC03 26. His creatinine is 4.4, GFR 16, AST 19, ALT 28, alkaline phosphatase 102. A check for C. difficile over the weekend was negative. Chest x-ray today shows no infiltrates, with minimal vascular prominence. ASSESSMENT AND PLAN: Mr. Villanueva is feeling much better today. He has been treated with cefepime and Zyvox for possible aspiration pneumonia, which seems to have cleared on the chest x-ray. We will go ahead and discontinue his IV antibiotics for now. He does have a low-grade temperature, however there is no leukocytosis at this point. He is complaining of some acid reflux and normally takes Nexium at home. We will go ahead and order that for him now and q.a.m. These plans have been discussed with and recommended by Dr. Tate. COMORBIDITIES: Includes cigarette smoking and alcoholism. Dictated by KT Almanzar for Rinku Tate MD This chart was documented by, KT Almanzar and accurately reflects the services performed, treatment plan and medical decisions as attested by the providers signature Rinku Tate MD. cc: Rinku Tate MD [facility]
--- NOTE | 2018-07-24 00:34 | GASTROENTEROLOGY PROGRESS NOTE ---
DATE: 07/20/2018 SUBJECTIVE: No acute overnight events. No N/V/F OBJECTIVE: Vital Signs: Temperature 98.8 degrees, heart rate 96, respiratory rate 20, blood pressure 161/96, O2 saturation 99% on BiPAP. Generally: Patient is awake, alert, mildly confused. HEENT: Sclerae anicteric. Moist mucous membranes. Neck: No JVD, lymphadenopathy. Cardiac: Regular rate and rhythm. No murmurs. Lungs: Decreased breath sounds at bases. Abdomen: Obese, distended. No tympany. Bowel sounds present. Mild tenderness to palpation throughout. No rebound or guarding. Lower Extremities: No clubbing, cyanosis , or edema. The patient is restrained, however, moves extremities symmetrically. ASSESSMENT AND PLAN: Mr. Villanueva is a 47-year-old gentleman admitted with acute pancreatitis complicated by hypoxic respiratory failure in the setting pneumonia, acute kidney injury, acute liver injury, encephalopathy. CT abdomen and pelvis performed today shows persistent inflammatory changes consistent with pancreatitis. However, no drainable fluid collections or significant worsening. Overall, he appears to be clinically improving, although he continues to complain of some abdominal pain with eating, and has persistent altered mental status. 1. Pancreatitis. Recommend a clear liquid diet as tolerated. If he continues to have abdominal pain with eating, we may consider doing a diagnostic esophagogastroduodenoscopy to evaluate for other etiologies of his abdominal pain including peptic ulcer disease. 2. Acute hypoxic and hypercapnic respiratory failure, being managed by Dr. Gresham. 3. Delirium. Patient is on Ativan, as per primary team. 4. Acute kidney injury. The patient maintains good urine output, and is being followed by Nephrology. 5. Anemia. The patient is on proton-pump inhibitors. Hemoglobin remains stable. No overt gastrointestinal bleeding at this time. 6. Pneumonia. Patient is on antibiotics as per Infectious Disease. 7. Diabetes. Patient is on insulin regimen. We will follow with you. Please call with any questions or concerns. [facility]OS[facility]ITALJuan
--- NOTE | 2018-07-24 02:24 | PULMONOLOGY PROGRESS NOTE ---
DATE: 07/23/2018 SUBJECTIVE: The patient is awake, alert and conversant. His NG tube has been removed. He is tolerating a liquid diet. OBJECTIVE: Vital Signs: The patient has been afebrile for the last 24 hours. Blood pressure is 131/75, heart rate 112, respiratory rate 18, oxygen saturation 97% on nasal cannula. HEENT: Pupils are equal and reactive. Oropharynx is clear. Neck: Supple. Chest: Reveals crackles in the lung bases. Cardiac: S1 and S2. Abdomen: Obese and soft with positive bowel sounds. Extremities: Are without edema. LABORATORIES: Chest x-ray reveals minimal vascular prominence, but otherwise clear. White blood count 7.34, hemoglobin 7.4, platelet count 284,000. Arterial blood gas reveals a pH of 7.39, pCO2 of 44, PO2 of 88 on nasal cannula. IMPRESSION: The patient is a 47-year-old with obesity, acute pancreatitis, diabetes mellitus, acute hypoxemic respiratory failure, ongoing tobacco use, acute renal failure. The patient had delirium several days ago, but this continues to improve. RECOMMENDATION: 1. Continue to wean oxygen as tolerated. 2. Cautious advancement of diet as tolerated. 3. Discontinue daily x-rays. 4. Recommend physical therapy. cc: Dixon Gresham MD
[2018-07-24] MEDS: XOPENEX NEB INH SCH ×6 (04:03→23:11)
[2018-07-24] MEDS: ATROVENT NEB INH SCH ×6 (04:04→23:11)
[2018-07-24 06:21] LABS: BASO# 0.03 X1000 (0.0-0.2); BASO% 0.4 % (0.0-0.8); EOS# 0.18 X1000 (0.0-0.7); EOS% 2.4 % (0.0-10.0); HEMATOCRIT 22.3 % (42.0-52.0); HEMOGLOBIN 6.8 g/dL (14.0-18.0); IMM GRAN# 0.05 X1000 (0.0-0.04); IMM GRAN% 0.7 % (0.0-0.5); LYMPH% 10.6 % (20.5-51.1); MCH 28.3 PG (27-31); MCHC 30.5 g/dL (33-37); MCV 92.9 FL (81-99); MONO# 0.42 X1000 (0.11-0.59); MONO% 5.6 % (1.7-9.3); MPV 10.7 FL (7.4-10.4); NEUT# 6.04 X1000 (1.4-6.5); NEUT% 80.3 % (42.2-75.2); PLT 254 X1000 (130-400); RDW 13.8 % (11.5-14.5); WBC 7.52 X1000 (4.8-10.8)
[2018-07-24] MEDS: HEPARIN SUBQ SCH ×2 (06:35→15:55)
[2018-07-24] MEDS: NEXIUM PO SCH (06:36)
[2018-07-24 06:37] LABS: ALB/GLOB RATIO 0.6; ALBUMIN 2.5 g/dL (3.5-5.0); CALCIUM 8.4 mg/dL (8.8-10.2); CREATININE 4.4 mg/dL (0.7-1.2); MAGNESIUM 2.4 mg/dL (1.5-2.7); POTASSIUM 3.6 mmol/L (3.5-5.1); TOTAL BILIRUBIN 0.24 mg/dL (0.20-1.00); TOTAL PROTEIN 6.5 g/dL (6.3-8.3)
[2018-07-24] MEDS: HUMULIN R SUBQ SCH ×3 (06:42→21:08)
[2018-07-24] MEDS: CLINIMIX E 4.25%-5% SOLUTION 1,000 ML IV SCH ×2 (08:34→22:16)
[2018-07-24] MEDS: CENTRUM SILVER PO SCH (08:39)
[2018-07-24] MEDS: ZOFRAN IV PRN ×2 (08:39→22:15)
[2018-07-24] MEDS: LEVEMIR SUBQ SCH ×2 (08:40→21:09)
--- NOTE | 2018-07-24 11:19 | NEPHROLOGY PROGRESS NOTE ---
DATE: 07/24/2018 TIME SEEN: 0800. SUBJECTIVE: Mr. Villanueva is resting quietly in bed. Head of the bed is slightly elevated. He complains of no acute distress, though he states that he would like to start eating real food. He had emesis last night. OBJECTIVE: Vital Signs: His most recent, temperature 99.3 degrees, blood pressure 167/92, heart rate 100, respirations 20. He is on room air. Last recorded saturation 95%. He has had 6223 in and 2200 out. Laboratory Data: Sodium 137, potassium 3.6, chloride is 100, CO2 24, BUN 54, creatinine 4.4, glucose 162, anion gap of 13, calcium 8.4, phosphorus of 6, albumin 2.5, magnesium 2.4. White count 7.52, hemoglobin 6.8, hematocrit 22.3, with a platelet count of 254,000. Physical Examination: General: This is a 47-year-old, white male resting quietly in bed. He appears chronically ill, though in no acute distress. His skin is warm and dry. HEENT: Normocephalic, atraumatic. Conjunctivae are pale. He has PAUL. Mucous membranes are dry. Neck: Supple. Trachea midline. No evidence of JVD. Cardiovascular: Regular rate and rhythm. No appreciable murmur or gallop. Lungs: Clear to auscultation bilaterally. Equal excursion. He remains on O2. Abdomen: Slightly distended. No tenderness present. Positive bowel sounds. NG tube has been removed. Genitourinary: Mathews catheter has been removed. He has been voiding adequately, he states, without difficulties. Extremities: Have no edema. No clubbing or cyanosis. Neurological: Alert and oriented x2. Integumentary: Warm and dry. No rashes or lesions. ASSESSMENT AND PLAN: 1. Acute kidney injury. Patient's creatinine continues to slowly improve. He is off his intravenous fluids. He is now drinking clear liquids. We will monitor labs. 2. Electrolytes and acid-base balance. This does continue to run fairly stable. 3. Anemia. Hemoglobin of 6.8, down from 7.4. This appears not to be nephrology related. We will defer to gastroenterology or the primary care team for indications of possible transfusions. 4. Pneumonia. The patient is slightly improved. Followed by the primary care. 5. Acute pancreatitis. Followed by the primary care team and gastroenterology. I would like to thank you for allowing us to follow with this patient. Dictated by KT Lizarraga for Harlan Funes MD Face to face encounter, data reviewed, discussed with Ovidio Manley on 07/24/18. I agree with the above assessment and plan of care. cc: KT Lizarraga MD [facility]
--- NOTE | 2018-07-24 11:38 | GASTROENTEROLOGY PROGRESS NOTE ---
DATE: 07/24/2018 SUBJECTIVE: Patient reports developing some nausea after eating a diabetic diet last night and some cramping abdominal pain. No vomiting, fevers. This morning patient denies any abdominal pain. He is tolerating clear liquid diet this morning. No shortness of breath or chest pain. He is having bowel movements and good urine output. OBJECTIVE: Vital signs: Temperature 98.9 degrees, heart rate 96, respiratory rate 14, blood pressure 159/107, O2 saturation 98% on room air. Generally: Patient is awake, alert, oriented, in no acute distress. HEENT: Sclerae anicteric. Moist mucous membranes. Neck : No JVD. No lymphadenopathy. Cardiac: Regular rate and rhythm. No murmurs. Lungs: Decreased breath sounds at the bases, otherwise clear. Abdomen: Obese, distended. Mild tympany. Nontender. Normoactive bowel sounds. No rebound or guarding. No ascites. Extremities: No clubbing, cyanosis, or edema. Neurologic: Nonfocal. LABORATORIES: White count 7.5, hemoglobin 6.8, platelets of 254,000. Sodium 137, potassium 3.6, chloride of 100, bicarbonate of 24, BUN of 54, creatinine of 4.4. LFTs only notable for an albumin of 2.5. No new imaging. ASSESSMENT AND PLAN: Mr. Villanueva is a 47-year-old gentleman admitted with acute pancreatitis complicated by hypoxic respiratory failure in the setting of pneumonia, acute kidney injury, acute liver injury and encephalopathy. #Pancreatitis: His pancreatitis has improved significantly as well as his mental status. He reports some nausea and mild abdominal pain with diabetic diet last evening - continue clear liquids as tolerated - will need cholecystectomy pending clinical improvement; defer timing to surgery #Anemia: He continues to have progressive anemia with a hemoglobin of 6.8 this morning. No overt bleeding. Given his downtrending hemoglobin and abdominal pain , we will consider diagnostic EGD tomorrow. - NPO after MN - diagnostic EGD tomorrow - continue PPI - transfuse 1 unit pRBCs #Hypoxic and hypercapnic respiratory failure, resolved. #Pneumonia. Patient is currently on room air. s/p antibiotics #Acute kidney injury; improving. Good urine output. Renal is following. #Encephalopathy, likely multifactorial, resolved. #Diabetes type 2, on sliding scale insulin. #Abnormal LFTs, essentially resolved. We will follow with you. Please call with any questions or concerns. CHRISTIE
--- NOTE | 2018-07-24 12:43 | GENERAL SURGERY PROGRESS NOTE ---
DATE: 07/24/2018 TIME: 12:10 p.m. SUBJECTIVE: Mr. Villanueva still has fever. Temp was a 100.8 degrees orally. Today, his hemodynamics are okay. He is feeling better, but he is taking only liquids thus far. DIAGNOSTICS/LABS: White count is 7500. Hemoglobin is down to 6.8, hematocrit 22. His BUN is 54, creatinine 4.4. His LFTs are within normal limits. ASSESSMENT AND PLAN: Again, I would not recommend any operative intervention until he is back to baseline with regard to his sepsis, with regard to his pancreas, with regard to his kidneys. There is no urgency to proceed with a cholecystectomy at this time. cc: Justino Brvao MD
--- NOTE | 2018-07-24 14:13 | INFECTIOUS DISEASE PROGRESS NO ---
DATE: 07/24/2018 PRESENT ILLNESS: The patient was being treated for pneumonia. His pneumonia has cleared. Unfortunately, he has been having a low-grade fever in the range of 100.4 to 100.8. His CBC, however, still shows he does not have a leukocytosis. MEDICATIONS: As mentioned above, he is on no antibiotics at this time. PHYSICAL EXAMINATION: Vital Signs: Temperature is 98.6 degrees, pulse 106, respirations 20m blood pressure 153/90. General: This is a somewhat ill-appearing, middle-aged male. He is in no acute distress. Head, eyes, ears, nose, and throat: He can hear my spoken words and see near objects. He does not have any white coating on his tongue. Neck: No stiffness. Lungs: Clear to auscultation. Cardiovascular: Heart rate is regular. Abdomen: Protuberant, but soft and not tender. Bowel sounds are present. Neurologic: Patient was sleeping, but he is fully arousable. He can move his extremities. There is no tremor. LAB AND X-RAY: There is no new radiographic study today. The CBC shows a white count of 7520, hemoglobin 6.8, and platelet count 254,000. Creatinine is 4.4, GFR is 15. Liver function studies are normal. ASSESSMENT AND PLAN: For right now I do not find a definite infectious site in this patient. He does have pancreatitis and there is a good possibility he has cholecystitis as well. Either one or both of these diseases could be causing the patient's low-grade fever. For now, I am not going to start any antibiotics and just follow the patient instead and see how his temperature does off antibiotics. COMORBIDITIES: The patient's comorbidities include the following: The patient still smokes cigarettes and drinks alcoholic beverages. cc: Rinku Tate MD
--- NOTE | 2018-07-24 15:31 | PROGRESS NOTE ---
DATE: 07/24/2018 SUBJECTIVE: The patient is resting comfortably in bed, not in any respiratory distress. OBJECTIVE: Vital signs: Temperature is 100.6, pulse 106, respiratory rate 20, blood pressure is 153/90, oxygen saturation is 93%. HEENT: He is atraumatic and normocephalic. Cardiovascular: S1, S2. Respiratory: He has evidence of good air entry bilaterally. Abdomen: Soft, nontender. No masses felt. Extremities: No evidence of edema. Central nervous system: No obvious focal deficit noted. DIAGNOSTIC DATA: WBC is 7.5, hematocrit 22.3 with platelet count of 254. Sodium is 137, potassium 3.6, chloride 100, bicarb is 24, BUN is 54, creatinine 4.4. ASSESSMENT AND PLAN: 1. Acute pancreatitis. This seems to have improved. Continue clear liquids and then advance diet as tolerated. GI following. 2. Pneumonia. Last chest x-ray done on 07/23/2018 shows no infiltrates. The patient is currently not on any antibiotics. ID is following. 3. Acute kidney injury. Renal function seems to be significantly impaired with slight improvement. The patient is being followed by Nephrology team and to avoid nephrotoxic agents. 4. Anemia. We will follow up on hemoglobin and hematocrit. I agree with transfusing the patient at least one unit of PRBCs. GI planning for endoscopic studies. 5. Hypertension. Continue current antihypertensive regimen. 6. Protein calorie malnutrition. The patient is already fed a diet, and this can be advanced as tolerated. 7. Delirium. This seems to have improved. 8. DVT prophylaxis with SCD. 9. GI prophylaxis with PPI. 10.Deconditioning. PT consulted. 11.Disposition. The patient, when ready for discharge, should be going home with home health services. cc: Rj Hernandez MD
[2018-07-24] MEDS: ROBAXIN PO PRN ×2 (15:48→21:09)
--- NOTE | 2018-07-24 20:41 | PULMONOLOGY PROGRESS NOTE ---
DATE: 07/24/2018 SUBJECTIVE: Patient is awake, alert, and conversant. He has a cough without significant sputum production. He had an episode of nausea and vomiting, with slight decrease in oxygen saturation. OBJECTIVE: Vital Signs: Maximum temperature today was 100.8 degrees. BP 152/86, heart rate 110, respiratory rate 18, oxygen saturation 90%. HEENT: Pupils are equal and reactive. Oropharynx is clear. Neck: Supple. Chest: Reveals occasional rhonchi, which clear with cough. Cardiac: Increased rate, regular rhythm. Abdomen: Soft/obese, with positive bowel sounds. LABORATORIES: White blood count 7.52, hemoglobin 6.8, platelet count 254,000. Sodium 137, potassium 3.6, chloride 100, bicarbonate 24, BUN 54, creatinine 4.4. IMPRESSION: A 47-year-old with obesity, pancreatitis, diabetes mellitus, tobacco use, acute renal failure, hypoxemic respiratory failure. The patient's oxygen saturation is marginal. The patient had delirium, but this has resolved. He is having some low-grade fever. Previous chest x-ray was essentially clear, but he has had an episode of nausea and vomiting. RECOMMENDATIONS: 1. Cautious advancement of diet. The patient has been re-initiated on liquids. 2. Continue bronchial hygiene. 3. Follow-up chest x-ray tomorrow. 4. Physical therapy is recommended. cc: Dixon Gresham MD
[2018-07-25] MEDS: ZOFRAN IV PRN ×3 (02:12→18:05)
[2018-07-25] MEDS: ATARAX PO PRN (04:42)
[2018-07-25 05:50] LABS: BASO# 0.05 X1000 (0.0-0.2); BASO% 0.7 % (0.0-0.8); EOS# 0.18 X1000 (0.0-0.7); EOS% 2.5 % (0.0-10.0); HEMATOCRIT 22.9 % (42.0-52.0); IMM GRAN# 0.04 X1000 (0.0-0.04); IMM GRAN% 0.5 % (0.0-0.5); LYMPH% 9.6 % (20.5-51.1); MCH 28.6 PG (27-31); MCHC 30.6 g/dL (33-37); MCV 93.5 FL (81-99); MONO# 0.53 X1000 (0.11-0.59); MONO% 7.3 % (1.7-9.3); MPV 10.3 FL (7.4-10.4); NEUT% 79.4 % (42.2-75.2); PLT 246 X1000 (130-400); RBC 2.45 XMIL (4.7-6.1); RDW 13.7 % (11.5-14.5)
[2018-07-25 06:31] LABS: ALB/GLOB RATIO 0.6; ALBUMIN 2.5 g/dL (3.5-5.0); CALCIUM 8.7 mg/dL (8.8-10.2); CREATININE 4.4 mg/dL (0.7-1.2); POTASSIUM 4.1 mmol/L (3.5-5.1); TOTAL BILIRUBIN 0.2 mg/dL (0.20-1.00); TOTAL PROTEIN 6.5 g/dL (6.3-8.3)
[2018-07-25] MEDS: NEXIUM PO SCH ×3 (06:58→20:18)
[2018-07-25] MEDS: HUMULIN R SUBQ SCH ×4 (06:58→21:20)
[2018-07-25] MEDS ORDERED: AMIDATE ONE (07:56)
[2018-07-25] MEDS: XOPENEX NEB INH SCH ×5 (08:00→23:20)
[2018-07-25] MEDS: ATROVENT NEB INH SCH ×5 (08:00→23:20)
[2018-07-25] MEDS ORDERED: DIPRIVAN 1% ONE (08:01)
[2018-07-25] MEDS ORDERED: VERSED ONE (08:01)
[2018-07-25] MEDS ORDERED: LABETALOL (DOSE) ONE (08:03)
--- NOTE | 2018-07-25 08:54 | OPERATIVE NOTE ---
PROCEDURE DATE : 07/25/2018 PROCEDURE: Upper GI endoscopy. PROVIDER: Clarence Valentin M.D. INDICATIONS: Anemia, abdominal pain. PROCEDURE: Prior to the procedure, a history and physical was performed and the patient's medications and allergies were reviewed. The patient's tolerance of previous anesthesia was also reviewed. The risks and benefits of the procedure and the sedation options and risks were discussed with the patient. All questions were answered and informed consent was obtained. After reviewing the risks and benefits, the patient was deemed in satisfactory condition to undergo the procedure. After informed consent was obtained, the endoscope was passed under direct visualization. Throughout the procedure, the patient's blood pressure, pulse and oxygen saturations were monitored continuously. The endoscope was introduced through the mouth and advanced to the second part of the duodenum. The upper GI endoscopy was accomplished without difficulty. The patient tolerated the procedure well. FINDINGS: The patient had LA grade A esophagitis in the distal esophagus. Stomach was normal on forward view and retroflexion. The duodenum revealed some mild duodenitis along the anterior wall without any evidence of active bleeding or ulcers. COMPLICATIONS: None. ESTIMATED BLOOD LOSS: None. IMPRESSION: - LA grade A esophagitis - Mild duodenitis likely secondary to pancreatitis - Anemia is likely from above findings RECOMMENDATIONS: - Patient may resume a diabetic low fat diet. - Continue Protonix 40 mg twice a day orally - GI team will follow with you. MTDD
--- NOTE | 2018-07-25 09:10 | Diag Imaging Result Doc PS360 ---
EXAM: CHEST-PORTABLE 07/25/2018 HISTORY: abnormal exam TECHNIQUE: AP portable at 0557 COMMENT: There is a PICC line on the left with its tip in the left innominate vein. The appearance of the chest has not changed significantly since 07/23/2018 and there is platelike atelectasis in the right upper lobe. IMPRESSION: Atelectasis. Electronically signed by Jose Pisano 07/25/2018 9:08 AM
--- NOTE | 2018-07-25 09:52 | NEPHROLOGY PROGRESS NOTE ---
DATE: 07/25/2018 TIME SEEN: 08:00. The patient is in GI laboratories. SUBJECTIVE: Mr. Villanueva states that he is a little chilly since he has been brought down to the lab. Otherwise, denies chest pain or increased work of breathing. OBJECTIVE: Vital Signs: Temperature 100.5. Highest temperature in the last 24 hours is 100.8. Blood pressure 183/90, heart rate 103, respirations 22. He is on room air. Last recorded saturation is 90%. General: This is a 47-year-old white male resting quietly in bed. Head of the bed is elevated. He appears in no acute distress. Skin: Warm and dry. HEENT: Normocephalic, atraumatic. Conjunctiva is pale. He has PAUL. Mucous membranes are dry. Neck: Supple. Trachea midline. No evidence of JVD. Cardiovascular: Regular rate and rhythm. He is without murmur or gallop. Lungs: Clear to auscultation bilaterally. Equal excursion. He is currently on room air. Abdomen: Soft, nontender, positive bowel sounds. Genitourinary: Not inspected. Patient has adequate urine out to void. Extremities: Have no edema. No clubbing or cyanosis. Neurological: Alert and oriented x2 to person and place. INPUT AND OUTPUT: He has had 5870 in, 2600 out to void. LABORATORY DATA: Sodium 136, potassium 4.1, chloride 100, CO2 21, BUN 54, creatinine 4.4, glucose 172. His anion gap is 15, calcium 8.7, albumin 2.5. White count 7.3, hemoglobin 7, hematocrit 22.9, with a platelet count of 246,000. ASSESSMENT AND PLAN: 1. Acute kidney injury. The patient's creatinine and BUN have slowly improved. It appears today that his creatinine remains stable at 4.4. The patient may be dry. He is off IV fluids though hemoglobin has continued to drop. He has had adequate urine out. No indications for intervention. We will monitor labs. 2. Anemia. Again, hemoglobin of 7. He is currently in the GI lab for an EGD and colonoscopy. We will defer to the Gastroenterology and primary care for transfusion if indicated. 3. Electrolytes. These are stable. 4. Acid-base balance. This remains fairly stable. 5. Pneumonia. This is slightly improved. Followed by primary care. 6. Acute pancreatitis. This continues to improve. Followed by Gastroenterology and Primary Care Team. I would to thank you for allowing us to follow with this patient. Dictated by KT Lizarraga for Harlan Funes MD Face to face encounter, data reviewed, discussed with Ovidio Manley on 07/25/18. I agree with the above assessment and plan of care. cc: KT Lizarraga MD [facility]
[2018-07-25] MEDS: LEVEMIR SUBQ SCH ×2 (11:02→21:49)
[2018-07-25] MEDS: CENTRUM SILVER PO SCH ×2 (11:03→11:10)
[2018-07-25] MEDS: ROBAXIN PO PRN (11:44)
[2018-07-25] MEDS: TYLENOL PO PRN ×2 (13:34→20:17)
--- NOTE | 2018-07-25 14:05 | PROGRESS NOTE ---
DATE: 07/25/2018 SUBJECTIVE: The patient resting in bed not in any obvious distress. OBJECTIVE: Vital Signs: Temperature 102 degrees, respiratory rate 20, blood pressure 181/81, oxygen saturation 96%. Pulse of 110. HEENT: Head is atraumatic, normocephalic. Cardiovascular: S1, S2. Respiratory: He has evidence of good entry bilaterally. Abdomen: Soft, nontender. No masses felt. Extremities: No evidence of edema. Central nervous system: No obvious focal deficits noted. LABORATORY: WBC 7.3, hematocrit 22.9, with a platelet count of 246,000. Sodium 136, potassium 4.1, chloride 100, bicarb is 21, BUN is 54 and creatinine is 4.4. ASSESSMENT AND PLAN: 1. Acute pancreatitis. Improved. Advance diet as tolerated. Gastroenterology following. 2. Pneumonia. Resolved. 3. Acute kidney injury. Nephrology following. 4. Anemia. We will type, cross, transfuse 1 unit of packed red blood cells. Follow up on hemoglobin and hematocrit. 5. Hypertension. Continue current antihypertensive regimen. 6. Deep vein thrombosis prophylaxis. Sequential compression devices. 7. Gastrointestinal prophylaxis. Proton pump inhibitor. 8. Deconditioning. PT recommended. 9. Disposition: Patient will be going home with home health services when ready for discharge. cc: Rj Hernandez MD
[2018-07-25] MEDS: CLINIMIX E 4.25%-5% SOLUTION 1,000 ML IV SCH (15:02)
--- NOTE | 2018-07-25 15:56 | INFECTIOUS DISEASE PROGRESS NO ---
DATE: 07/25/2018 PRESENT ILLNESS: The patient had been treated for pneumonia which cleared. He has been running a low-grade fever but, today, his temperature went up to 103. MEDICATIONS: The patient is on no antibiotics. PHYSICAL EXAMINATION: Vital Signs: Temperature is 102, pulse 110, respirations 20, blood pressure 181/81. Generally, this is a somewhat ill-appearing, middle-aged male. He is in no acute distress. Head, eyes, ears, nose, and throat: He can hear my spoken words and see near objects. His sinuses are not tender. He does not have any white coating on his tongue. Cardiovascular: Heart rate is regular. Abdomen is protuberant but soft and not tender. Neurologic: The patient is sleeping but he is fully arousable. He can move his extremities. There is no tremor. Integument: No rash. The patient's IV sites are not erythematous or draining. LABORATORY DATA AND X-RAY: CBC shows a white count of 7300, hemoglobin 7, platelet count 246,000. Creatinine is 4.4. GFR is 15. Liver function studies are normal. Blood cultures are pending. The patient also has a chest x-ray which is pending. ASSESSMENT AND PLAN: The patient has fever, the exact etiology of it is uncertain to me. The patient has had blood cultures drawn and a chest x-ray has been ordered. I have started the patient on a combination of Zyvox and meropenem pending culture results. I am going to get a bladder scan on the patient to make sure that he does not have urinary retention and, tomorrow if he still is febrile, I think he will need another CAT scan of the abdomen to rule out any kind of intra-abdominal infection. COMORBIDITIES: He smokes cigarettes and drinks alcoholic beverages. cc: Rinku Tate MD
--- NOTE | 2018-07-25 16:07 | Diag Imaging Result Doc PS360 ---
CHEST-1 VIEW - 07/25/2018 INDICATION: fever COMPARISON: None FINDINGS: There is a left PICC line with the catheter tip at the confluence of the brachiocephalic veins. There is some linear atelectasis in the right lung base. Otherwise no focal infiltrates. No pneumothorax or pleural effusion. Heart size is top normal. IMPRESSION: Linear atelectasis in the right lung base. No acute disease. Electronically signed by Richard Higgins 07/25/2018 4:05 PM
[2018-07-25] MEDS: LABETALOL IV PRN (18:41)
[2018-07-25] MEDS: ZYVOX 600 MG/D5W 600 MG/300 ML IVPB IV SCH (20:20)
[2018-07-25 21:22] LABS: URINE SOURCE VOIDED
[2018-07-25 21:26] LABS: BILIRUBIN URINE NEGATIVE (NEGATIVE); BLOOD URINE TRACE (NEGATIVE); COLOR STRAW; GLUCOSE URINE NEGATIVE (NEGATIVE); KETONE URINE NEGATIVE (NEGATIVE); LEUKOCYTES URINE NEGATIVE (NEGATIVE); NITRITE URINE NEGATIVE (NEGATIVE); PH URINE 5.5; PROTEIN URINE 30 mg/dL (NEGATIVE); TURBIDITY URINE CLEAR (CLEAR); UR EPITHELIAL CELLS <10 /HPF (<10); URINE BACTERIA NEGATIVE /HPF; URINE RBC <10 /HPF (<10); URINE WBC <10 /HPF (<10); UROBILINOGEN URINE NORMAL (NORMAL)
[2018-07-25] MEDS: MERREM 1 GM in NS 50 ML IV SCH (22:51)
[2018-07-26] MEDS: ZOFRAN IV PRN ×4 (02:10→21:19)
[2018-07-26] MEDS: ATARAX PO PRN (03:25)
[2018-07-26] MEDS: BENTYL PO PRN ×2 (03:28→15:42)
[2018-07-26] MEDS: ATROVENT NEB INH SCH ×7 (03:50→23:47)
[2018-07-26] MEDS: XOPENEX NEB INH SCH ×7 (03:50→23:47)
[2018-07-26] MEDS ORDERED: TUMS EXTRA STRENGTH PO ONE (04:11)
[2018-07-26] MEDS: TYLENOL PO PRN ×3 (04:43→21:19)
[2018-07-26] MEDS ORDERED: INSULIN PEN NEEDLES ONE (05:48)
[2018-07-26] MEDS: HUMULIN R SUBQ SCH ×5 (06:31→22:13)
[2018-07-26 06:41] LABS: BASO# 0.04 X1000 (0.0-0.2); BASO% 0.5 % (0.0-0.8); EOS# 0.18 X1000 (0.0-0.7); EOS% 2.5 % (0.0-10.0); HEMATOCRIT 23.9 % (42.0-52.0); HEMOGLOBIN 7.5 g/dL (14.0-18.0); IMM GRAN# 0.03 X1000 (0.0-0.04); IMM GRAN% 0.4 % (0.0-0.5); LYMPH# 0.68 X1000 (1.2-3.4); LYMPH% 9.3 % (20.5-51.1); MCH 28.4 PG (27-31); MCHC 31.4 g/dL (33-37); MCV 90.5 FL (81-99); MONO# 0.59 X1000 (0.11-0.59); MPV 10.4 FL (7.4-10.4); NEUT# 5.82 X1000 (1.4-6.5); NEUT% 79.3 % (42.2-75.2); PLT 243 X1000 (130-400); RBC 2.64 XMIL (4.7-6.1); RDW 14.7 % (11.5-14.5); WBC 7.34 X1000 (4.8-10.8)
[2018-07-26 07:12] LABS: ALB/GLOB RATIO 0.6; ALBUMIN 2.6 g/dL (3.5-5.0); CALCIUM 8.4 mg/dL (8.8-10.2); CREATININE 4.6 mg/dL (0.7-1.2); POTASSIUM 4.6 mmol/L (3.5-5.1); TOTAL BILIRUBIN 0.22 mg/dL (0.20-1.00); TOTAL PROTEIN 6.6 g/dL (6.3-8.3)
[2018-07-26] MEDS: CLINIMIX E 4.25%-5% SOLUTION 1,000 ML IV SCH ×2 (07:35→17:32)
[2018-07-26] MEDS: MERREM 1 GM in NS 50 ML IV SCH ×2 (10:26→21:20)
[2018-07-26] MEDS: CENTRUM SILVER PO SCH (10:27)
[2018-07-26] MEDS: LEVEMIR SUBQ SCH ×2 (10:27→22:13)
[2018-07-26] MEDS: NEXIUM PO SCH ×2 (10:27→21:19)
[2018-07-26 11:18] LABS: UR CREAT RANDOM 33.9 mg/dL (14-26); UR PROT RANDOM 46.2 mg/dL
[2018-07-26] MEDS: ZYVOX 600 MG/D5W 600 MG/300 ML IVPB IV SCH ×2 (11:43→22:13)
--- NOTE | 2018-07-26 12:35 | GASTROENTEROLOGY PROGRESS NOTE ---
DATE: 07/26/2018 SUBJECTIVE: Patient resting in bed. He denies any nausea or vomiting. He has decreased p.o. intake. He had an EGD done yesterday, which showed esophagitis and duodenitis, which could be secondary to resolving pancreatitis. Patient denies any signs of active bleeding. The patient continues to be anemic. He has never had a colonoscopy in the past. OBJECTIVE: Vital signs: Temperature 98.5, pulse rate of 92 respiratory of 14, blood pressure 152/91, satting 92% on room air. General Appearance: Obese, lying in bed, in no acute distress. HEENT: Pale conjunctivae. No icterus. Neck: Supple. Abdomen: Obese, discomfort when out of bed with no rebound or guarding. Extremities: No cyanosis, clubbing. Neurologic: Neuro-gonzalez, alert, awake, oriented x3. LABS: Hemoglobin and hematocrit is 7.5 and 23.9, white count of 7.34, platelet count of 243. Sodium of 132, potassium 4.6, chloride 101, bicarbonate of 21, anion gap of 14. BUN of 61, creatinine of 4.6, glucose of 156, calcium is 8.4, total bilirubin is 0.22, AST 32, ALT 47, alkaline phosphatase is 105, total protein 6.6, albumin of 2.6. IMPRESSION AND PLAN: 1. Acute pancreatitis. It is improved. This is likely secondary to gallbladder sludge. He is being followed by Dr. Bravo. Dr. Bravo is planning to wait for some time before proceeding with cholecystectomy. 2. Anemia, continue to watch for now. Transfuse as needed. We will start him on iron C twice daily and multivitamin once daily. His esophagogastroduodenoscopy showed evidence of esophagitis and duodenitis, so we will keep him on proton pump inhibitors twice daily. 3. Obesity. Patient counseled to lose weight. 4. Constipation. We will keep him on bowel regimen. He moved his bowels today. 5. Deconditioning. Physical therapy has been recommended. 6. Deep vein thrombosis prophylaxis with sequential compression devices. 7. Pneumonia is resolved. 8. Malnutrition. He is on Clinimix. This can be weaned off once he is able to tolerate oral food. 9. Diabetes. He is on Levemir and sliding scale. 10. If the patient continues to be anemic, then he may have to consider colonoscopy. We will follow along. The above plans discussed with the patient and all questions were answered. Please call us with any further questions. cc: MD Adán Roe MD
[2018-07-26] MEDS ORDERED: TYLENOL PR PRN (12:42)
[2018-07-26] MEDS ORDERED: CATHFLO IV ONE (13:01)
[2018-07-26] MEDS ORDERED: STERILE WATER INJ. INJ ONE (13:01)
[2018-07-26 13:22] LABS: HEMATOCRIT 25.3 % (42.0-52.0); HEMOGLOBIN 7.8 g/dL (14.0-18.0)
[2018-07-26] MEDS: PHENERGAN PR PRN ×2 (13:25→20:15)
--- NOTE | 2018-07-26 15:16 | Diag Imaging Result Doc PS360 ---
EXAM: CT ABDOMEN/PELVIS W/O CONTRAST INDICATION: Nausea/vomiting TECHNIQUE: This exam was performed using automated exposure control, adjustment of mA or kV according to patient size, and/or use of iterative reconstruction technique. COMPARISON: 07/20/2018 FINDINGS: The small right pleural effusion seen on the previous study has resolved. The left effusion has decreased in size. There is only a trace amount of pleural fluid remains on the left. There is mild subsegmental atelectasis at the lung bases that has improved. There is stable hyperdense sludge in the gallbladder lumen. There is mild hepatic steatosis. The spleen is very mildly prominent measuring up to 14.6 cm in craniocaudal length, stable. The adrenal glands are unremarkable. There is still severe inflammatory stranding around the pancreas indicating acute pancreatitis. However, the degree of inflammation appears to have improved at least slightly during the interval. There is peripancreatic fluid and there is a small amount of fluid that is in the paracolic gutters tracking into the pelvis. The kidneys are unchanged and are essentially unremarkable. The urinary bladder is unremarkable. There is mild diverticulosis coli but no evidence of diverticulitis. The appendix is normal. The remainder of the GI tract is essentially unremarkable as imaged. IMPRESSION: 1.Severe acute pancreatitis. However, the degree of inflammation appears to have improved at least slightly during the interval. 2.Improvement of small bibasilar pleural effusions. Electronically signed by Emmett Turner 07/26/2018 3:14 PM
--- NOTE | 2018-07-26 15:37 | NEPHROLOGY PROGRESS NOTE ---
DATE: 07/26/2018 TIME SEEN: 0800. SUBJECTIVE: Mr. Villanueva is resting quietly in bed. He is semiprone. States that his abdomen is hurting. Denies chest pain or increased work of breathing. OBJECTIVE: Vital Signs: Temperature 100.3 degrees, blood pressure 166/107, heart rate 99, respirations 18. He is on room air. Last recorded saturation 96%. He has had 2721 in and 1800 out to void. LABORATORY DATA: Sodium 136, potassium 4.6, chloride 101, CO2 21, BUN 61, creatinine 4.6, glucose 156, anion gap 14, calcium 8.4, albumin 2.6. White count 7.34, hemoglobin 7.5, hematocrit 23.9, platelet count 243,000. PHYSICAL EXAMINATION: General: This is a 47-year-old white male resting quietly in bed. He appears in no acute distress. Skin: Warm and dry. HEENT: Normocephalic, atraumatic. Conjunctivae pale. He has PAUL. Mucous membranes are dry. Neck: Supple. Trachea midline. No evidence of JVD. Cardiovascular: Regular rate and rhythm. He is slightly tachycardic. No murmur or gallop. Lungs: Clear to auscultation anterior. Poor inspiratory effort. He remains on room air. Abdomen: Distended. Positive bowel sounds. Slightly tender on palpation greater on the right. Genitourinary: Not inspected. Patient has been voiding, adequate amount recorded. Extremities: Have no edema. No clubbing or cyanosis. Integumentary: No rashes or lesions noted. Neurological: Alert and oriented x2. ASSESSMENT/PLAN: 1. Acute kidney injury. Patient's BUN and creatinine have stabilized. BUN of 61 with a creatinine of 4.6. We are rechecking urine electrolytes today to evaluate the patient's need for further fluid resuscitation. Adequate urine out. No indications for dialysis intervention. 2. Electrolytes and acid-base balance which are stable. 3. Anemia. This remains low. The patient was transfused 1 unit of packed red blood cells yesterday after his EGD followed by Gastroenterology and primary care. 4. Acute pancreatitis. Again, this is being followed by Gastroenterology and primary care. I would like to thank you for allowing us to follow with this patient. Dictated by KT Lizarraga for Harlan Funes MD cc: KT Lizarraga MD
[2018-07-26] MEDS: ROBAXIN PO PRN (15:42)
[2018-07-26] MEDS: CATAPRES-TTS-2 TD SCH (15:45)
--- NOTE | 2018-07-26 16:18 | PROGRESS NOTE ---
DATE: 07/26/2018 INTERVAL HISTORY: The patient still with some abdominal pain, slightly worse in the epigastrium, but fairly diffuse. Still with some fevers overnight, largely low grade, but did have 1 or 2 up to 102. Some significantly increased nausea despite Zofran. No further clear signs or symptoms of bleeding. No other acute events overnight. DIAGNOSTIC DATA: Initial hemoglobin 7.5, repeat hemoglobin 7.8, platelets 243, 000. BUN 61, creatinine 4.6, bicarbonate 21, glucose [address] abdomen and pelvis: Severe acute pancreatitis, slightly improved since last scan. Small bibasilar pleural effusions. No other acute process. PHYSICAL EXAMINATION: Vitals: T-max 102.0 degrees, pulse 92, respirations 14, blood pressure 152/91, O2 saturation 98% on room air. General: No acute distress. HEENT: Normocephalic, atraumatic. No cervical adenopathy. Cardiovascular: Regular rate and rhythm. No murmurs, rubs, or gallops. Pulmonary: Clear to auscultation bilaterally. No wheezing, rales , or rhonchi. Abdomen: Mild diffuse tenderness, slightly worse in the epigastrium without rebound or guarding. Bowel sounds positive. Extremities: Peripheral pulses intact. No clubbing, cyanosis, or edema. Neurologic: Cranial nerves grossly intact. No focal deficits identified. Psychiatric: Normal mood and affect. Awake, alert, and oriented x3. Skin: No new rashes or lesions identified. ASSESSMENT AND PLAN: 1. Acute pancreatitis, improved initially, but worsening of nausea/vomiting and abdominal pain again today. Repeat CT abdomen obtained as per ID recommendations given ongoing fevers. CT with continued severe pancreatitis, but actually slightly improved from previous, and with no other acute process. We will continue fluids. We will back off the patient' s diet back to clears. Phenergan suppositories added for better control of nausea. We will consider Compazine if this is ineffective. Otherwise, continue monitoring closely. Gastroenterology following and had initially planned for possible colonoscopy tomorrow, but this will have to be deferred as he is unable to tolerate a bowel prep at this point. 2. Pneumonia, clinically resolved at this point. Has been on antibiotics with Zyvox and Merrem. Still with ongoing fevers. Repeat chest x-ray yesterday clear. A CT abdomen and pelvis with still some pancreatitis, but no new infectious process. Suspect this is due to ongoing pancreatitis, but Infectious Disease is following, and we will see if they have further recommendations. Blood cultures x2 sets negative. 3. Acute kidney injury. Slight improvement from admission, but stable over the last several days. Nephrology following. 4. Anemia. Transfused 1 unit packed red blood cells yesterday. Hemoglobin increased from 6.8 to 7.5, recheck today 7.8, stable. Gastroenterology following. Esophagogastroduodenoscopy showed esophagitis and duodenitis, which is likely the source of his bleeding. Continue PPI. 5. Hypertension. Continue current regimen. 6. Obesity: Diet and exercise. 7. Diabetes. Reasonable control on current regimen. Continue to monitor. 8. Deep vein thrombosis (DVT) prophylaxis. SCDs, given anemia. CHRISTIE
--- NOTE | 2018-07-26 16:20 | INFECTIOUS DISEASE PROGRESS NO ---
DATE: 07/26/2018 PRESENT ILLNESS: Mr. Villanueva was previously treated for pneumonia which has cleared. He has been running a fever which has apparently gone up to 103 degrees. MEDICATIONS: Yesterday he was started on Zyvox 600 mg IV every 12 hours and meropenem 1 g IV every 12 hours as a renally modified dose. PHYSICAL EXAMINATION: Vital Signs: Temperature is 98.6 degrees, pulse rate 111 , respiratory rate 16, blood pressure 168/93, O2 saturation 95% on room air. General: This is a chronically ill- appearing, obese, middle-aged gentleman. He is lying in bed, currently, in no acute distress. HEENT: Atraumatic, normocephalic. Oral mucous membranes are pink and moist. Conjunctivae are pale. Neck: Supple. Trachea is midline. Cardiovascular: Heart rate is regular. Radial and pedal pulses are +2 bilaterally. Respiratory: Lung sounds are clear to auscultation. Diminished in the bases. Abdomen: Soft, obese and tender with some complaints of nausea. Neurologic: He is awake, alert, and oriented. Integumentary: There is a PICC line in place to his left upper arm. Site is without edema, erythema, or drainage. LABORATORY AND X-RAY: Today, his white count is 7.34, hemoglobin 7.8, platelet count 243,000. Creatinine is 4.6, GFR is 14, AST is 32, ALT 47, alkaline phosphatase 105. A urinalysis done yesterday shows no bacteria or WBCs. Urine culture so far shows no growth on the preliminary report. Blood cultures were also done yesterday and are pending. Chest x-ray from yesterday afternoon shows linear atelectasis in the right lung base with no acute disease. A CT of the abdomen and pelvis have been done this afternoon and we are awaiting those results. ASSESSMENT AND PLAN: Mr. Villanueva has been started on Zyvox and meropenem due to fever. At this point, we are awaiting cultures and CT results. There is no leukocytosis. However, there is still low-grade fever as of this morning, up to 100.4. Bladder scan done yesterday shows no postvoid residual. These plans have been discussed with and recommended by Dr. Tate. COMORBIDITIES: For Mr. Villanueva include obesity, cigarette smoking, and acute kidney injury. Dictated by KT Almanzar for Rinku Tate MD This chart was documented by, KT Almanzar and accurately reflects the services performed, treatment plan and medical decisions as attested by the providers signature Rinku Tate MD. cc: Rinku Tate MD [facility]
[2018-07-26] MEDS: LABETALOL IV PRN (22:33)
--- NOTE | 2018-07-27 00:20 | PULMONOLOGY PROGRESS NOTE ---
DATE: 07/26/2018 SUBJECTIVE: The patient has continued nonspecific abdominal tenderness. He is having liquid bowel movements. OBJECTIVE: Vital Signs: He had a temperature of 102 degrees yesterday at noon, but his temperature curve has decreased. He denies dyspnea. BP 142/98, heart rate 121, respiratory rate 22, oxygen saturation 94% on room air. HEENT: Pupils are equal and reactive. Oropharynx is clear. Neck: Supple. Chest: Reveals faint crackles in the lung bases. Cardiac: S1-S2. Abdomen: Mildly distended, with mild tenderness. Positive bowel sounds are present. Extremities: Without edema. LABORATORIES: CT scan of the abdomen and pelvis is reviewed. He continues to have evidence of pancreatitis, with marginal improvement. He has a trace effusion on the left, with resolution of his effusion on the right. No evidence of pneumonia in the lung bases. White blood count 7.34, hemoglobin 7.5, platelet count 243,000, BUN 61, creatinine 4.6. IMPRESSION: The patient is a 47-year-old with obesity, pancreatitis, tobacco use, diabetes mellitus, and acute renal failure. The patient had hypoxemic respiratory failure. This has resolved. He has a trace effusion, but no evidence of pneumonia. RECOMMENDATIONS: 1. Continue bronchial hygiene. 2. Continue physical therapy. 3. Agree with Clinimix and IV fluids, given worsening renal failure. 4. Diet as determined by the GI service. cc: Dixon Gresham MD
[2018-07-27] MEDS: ZOFRAN IV PRN ×4 (01:09→19:50)
[2018-07-27] MEDS: ATARAX PO PRN (01:11)
[2018-07-27] MEDS: PHENERGAN PR PRN ×2 (02:34→10:53)
[2018-07-27] MEDS: ATROVENT NEB INH SCH ×6 (03:43→23:38)
[2018-07-27] MEDS: XOPENEX NEB INH SCH ×6 (03:44→23:38)
[2018-07-27] MEDS: HUMULIN R SUBQ SCH ×4 (06:46→23:32)
[2018-07-27 07:03] LABS: BASO# 0.05 X1000 (0.0-0.2); BASO% 0.7 % (0.0-0.8); EOS# 0.24 X1000 (0.0-0.7); EOS% 3.3 % (0.0-10.0); HEMATOCRIT 24.6 % (42.0-52.0); HEMOGLOBIN 7.7 g/dL (14.0-18.0); LYMPH# 0.77 X1000 (1.2-3.4); LYMPH% 10.6 % (20.5-51.1); MCH 28.6 PG (27-31); MCHC 31.3 g/dL (33-37); MCV 91.4 FL (81-99); MONO# 0.49 X1000 (0.11-0.59); MONO% 6.8 % (1.7-9.3); MPV 10.4 FL (7.4-10.4); NEUT# 5.69 X1000 (1.4-6.5); NEUT% 78.6 % (42.2-75.2); PLT 240 X1000 (130-400); RBC 2.69 XMIL (4.7-6.1); RDW 14.6 % (11.5-14.5); WBC 7.24 X1000 (4.8-10.8)
[2018-07-27 07:23] LABS: ALB/GLOB RATIO 0.6; ALBUMIN 2.7 g/dL (3.5-5.0); CALCIUM 8.4 mg/dL (8.8-10.2); CREATININE 4.4 mg/dL (0.7-1.2); POTASSIUM 4.7 mmol/L (3.5-5.1); TOTAL BILIRUBIN 0.17 mg/dL (0.20-1.00)
[2018-07-27] MEDS: ZYVOX 600 MG/D5W 600 MG/300 ML IVPB IV SCH (08:46)
[2018-07-27] MEDS: NEXIUM PO SCH (08:47)
[2018-07-27] MEDS: CENTRUM SILVER PO SCH (08:47)
[2018-07-27] MEDS: LEVEMIR SUBQ SCH (08:53)
--- NOTE | 2018-07-27 10:48 | GASTROENTEROLOGY PROGRESS NOTE ---
DATE: 07/23/2018 SUBJECTIVE: The patient continues to have periods of agitation requiring sedation. No acute overnight events. He is afebrile. CT abdomen and pelvis was performed this morning, which showed persistent pancreatitis without any drainable fluid collections as well as fatty liver and splenomegaly. This morning, patient reports needing to have a bowel movement. No significant abdominal pain, shortness of breath, or chest pain. OBJECTIVE: Vital Signs: Temperature 98.8 degrees, heart rate 96, respiratory rate 20, blood pressure 161/96, O2 saturation 99% on BiPAP. Generally: Patient is awake, alert, mildly confused. HEENT: Sclerae anicteric. Moist mucous membranes. Neck: No JVD, lymphadenopathy. Cardiac: Regular rate and rhythm. No murmurs. Lungs: Decreased breath sounds at bases. Abdomen: Obese, distended. No tympany. Bowel sounds present. Mild tenderness to palpation throughout. No rebound or guarding. Lower Extremities: No clubbing, cyanosis, or edema. The patient is restrained, however, moves extremities symmetrically. ASSESSMENT AND PLAN: Mr. Villanueva is a 47-year-old gentleman admitted with acute pancreatitis complicated by hypoxic respiratory failure in the setting pneumonia, acute kidney injury, acute liver injury, encephalopathy. CT abdomen and pelvis performed today shows persistent inflammatory changes consistent with pancreatitis. However, no drainable fluid collections or significant worsening. Overall, he appears to be clinically improving, although he continues to complain of some abdominal pain with eating, and has persistent altered mental status. 1. Pancreatitis. Recommend a clear liquid diet as tolerated. If he continues to have abdominal pain with eating, we may consider doing a diagnostic esophagogastroduodenoscopy to evaluate for other etiologies of his abdominal pain including peptic ulcer disease. 2. Acute hypoxic and hypercapnic respiratory failure, being managed by DR. Gresham. 3. Delirium. Patient is on Ativan, as per primary team. 4. Acute kidney injury. The patient maintains good urine output, and is being followed by Nephrology. 5. Anemia. The patient is on proton-pump inhibitors. Hemoglobin remains stable. No overt gastrointestinal bleeding at this time. 6. Pneumonia. Patient is on antibiotics as per Infectious Disease. 7. Diabetes. Patient is on insulin regimen. We will follow with you. Please call with any questions or concerns.
--- NOTE | 2018-07-27 10:50 | GASTROENTEROLOGY PROGRESS NOTE ---
DATE: 07/20/2018 The patient is seen and examined. Progress note to follow.
[2018-07-27] MEDS: MERREM 1 GM in NS 50 ML IV SCH (11:33)
[2018-07-27] MEDS: CLINIMIX E 4.25%-5% SOLUTION 1,000 ML IV SCH ×2 (11:34→14:02)
--- NOTE | 2018-07-27 12:31 | INFECTIOUS DISEASE PROGRESS NO ---
DATE: 07/27/2018 PRESENT ILLNESS: Mr. Villanueva was previously treated for pneumonia, which has cleared. He then had an elevation in his temperature and was started back on antibiotics with montague cultures, which are negative. He has been afebrile for the last day or two. CT from yesterday shows a severe pancreatitis, and he is still complaining of nausea and abdominal pain. MEDICATIONS: Today is day 2 of Zyvox 600 mg IV every 12 hours and meropenem 1 g IV every 12 hours. PHYSICAL EXAMINATION: Vital Signs: Temperature is 98.5 degrees pulse rate 82, respiratory rate 16, blood pressure 164/97 and O2 saturation 98% on room air. General: This is a chronically ill- appearing, middle-aged gentleman. He is lying in the bed, currently in no acute distress. HEENT: Atraumatic, normocephalic. Oral mucous membranes are pink and moist. Conjunctivae are pale. Neck: Supple. Trachea is midline. Cardiovascular: Heart rate is regular. Pedal and radial pulses +2 bilaterally. Respiratory: Lung sounds are clear to auscultation. Diminished in the bases. Abdomen: Protuberant. He does have some tenderness and complaints of nausea. Bowel sounds are active. Integumentary: There is a PICC line in place to the left upper arm. The site is without edema, erythema, or drainage. Neurologic: He is awake, alert, oriented, and able to ambulate independently. LABORATORY AND X-RAY: Today his white count is 7.24, hemoglobin 7.7, platelet count 240,000. Creatinine is 4.4. GFR 15. His most recent urine and blood cultures have shown no growth. No imaging reports today. However, CT done yesterday shows severe acute pancreatitis with improvement of small bibasilar pleural effusions. ASSESSMENT AND PLAN: Mr. Villanueva has severe pancreatitis. At this point, we see no other origin for his previous fever. Blood and urine have both been clear. We will go ahead and discontinue his Zyvox and meropenem at this time to see how he responds to a lack of antibiotics , and we will continue to follow his progress. Mr. Villanueva wants to go home today. However, we explained to him the need to stay due to his pancreatitis and continued nausea and abdominal pain. We need to see that he remains afebrile off the antibiotics. There is also an acute kidney injury and anemia, for which he is being followed. These plans have been discussed with and recommended by Dr. Tate. COMORBIDITIES: Comorbidities For Mr. Villanueva include obesity, cigarette smoking, acute kidney injury and anemia. Dictated by KT Almanzar for Rinku Tate MD This chart was documented by, KT Almanzar and accurately reflects the services performed, treatment plan and medical decisions as attested by the providers signature Rinku Tate MD. cc: Rinku Tate MD [facility]
[2018-07-27] MEDS: TYLENOL PO PRN (20:58)
--- NOTE | 2018-07-27 23:47 | PROGRESS NOTE ---
DATE: 07/27/2018 SUBJECTIVE: Patient resting in bed. No new complaints today. OBJECTIVE: Vital signs: Temperature 98.4 degrees, pulse 100, respiratory 24, blood pressure is 161/110, oxygen saturation is 96%. HEENT: He is atraumatic, normocephalic. Cardiovascular: S1, S2. Respiratory: Has evidence of good entry bilaterally. Abdomen: Soft, nontender, no masses felt. Extremities: No evidence of edema. Central nervous system: No obvious focal deficit noted. LABORATORY: WBC is 7.24, hematocrit 24.6 with a platelet count of 240,000, sodium is 138, potassium is 4.7, chloride is [*] bicarb 23, BUN is 61, creatinine is 4.4. CT scan of the abdomen and pelvis shows evidence of severe acute pancreatitis however degree of inflammation appears to have improved hardly slightly during the interval. There is also mention of improvement of small bibasilar pleural effusions. ASSESSMENT AND PLAN: 1. Acute pancreatitis. CT scan of the abdomen and pelvis done on 07/26 indicates severe acute disease. Will suggest further monitoring patient in the hospital. Would obtain a repeat lipase level. 2. Pneumonia. Resolved. 3. Acute kidney injury. Nephrology following. 4. Anemia, will type, cross, transfuse 1 unit of packed red blood cells and follow up on hemoglobin, hematocrit. 5. Hypertension. Continue current antihypertensive regimen. 6. Deep vein thrombosis prophylaxis sequential compression devices. 7. Gastrointestinal prophylaxis proton pump inhibitor. 8. Deconditioning, PT recommended. 9. Disposition. Patient will be going home with home health services when ready for discharge. cc: Rj Hernandez MD
[2018-07-28] MEDS: LEVEMIR SUBQ SCH ×2 (00:33→10:47)
[2018-07-28] MEDS: NS 500 ML ONE ×2 (00:34→02:47)
[2018-07-28] MEDS: NEXIUM PO SCH ×3 (00:34→10:47)
[2018-07-28] MEDS ORDERED: NS 500 ML IV SCH (00:45)
--- NOTE | 2018-07-28 01:20 | NEPHROLOGY PROGRESS NOTE ---
DATE: 07/27/2018 SUBJECTIVE: He is lying in bed. He has no new complaints today. He is hoping for discharge. OBJECTIVE: Vital Signs: Blood pressure 164/97, heart rate 82, respirations 16, afebrile. General: No acute distress. Skin: Warm and dry. HEENT: Conjunctivae are pink. Neck: Neck veins are not distended. Heart: Regular. Lungs: Equal. Abdomen: Obese, distended, soft, nontender. Bowel sounds are present. Extremities: Have no edema, clubbing or cyanosis. IMPRESSION AND PLAN: Acute kidney injury. Secondary to pancreatitis. Presumed. Creatinine is unchanged over the last 3 days, but he is functionally improving and has good urine output. No indications for dialysis. From my perspective okay to be discharged, and we will follow him with weekly labs and an office visit within 2 weeks. cc: Harlan Funes MD
[2018-07-28] MEDS: ZOFRAN IV PRN ×4 (01:48→15:22)
[2018-07-28] MEDS: BENTYL PO PRN ×2 (02:57→11:33)
[2018-07-28] MEDS: ATROVENT NEB INH SCH ×3 (06:03→11:58)
[2018-07-28] MEDS: XOPENEX NEB INH SCH ×3 (06:04→11:58)
[2018-07-28] MEDS: LABETALOL IV PRN (06:26)
[2018-07-28] MEDS: HUMULIN R SUBQ SCH ×2 (06:27→10:51)
[2018-07-28 06:32] LABS: BASO# 0.05 X1000 (0.0-0.2); BASO% 0.6 % (0.0-0.8); EOS% 4.7 % (0.0-10.0); HEMOGLOBIN 8.5 g/dL (14.0-18.0); LYMPH# 0.97 X1000 (1.2-3.4); LYMPH% 11.4 % (20.5-51.1); MCH 28.1 PG (27-31); MCHC 31.5 g/dL (33-37); MCV 89.4 FL (81-99); MONO# 0.54 X1000 (0.11-0.59); MONO% 6.3 % (1.7-9.3); MPV 10.1 FL (7.4-10.4); NEUT# 6.57 X1000 (1.4-6.5); PLT 229 X1000 (130-400); RBC 3.02 XMIL (4.7-6.1); RDW 14.8 % (11.5-14.5); WBC 8.53 X1000 (4.8-10.8)
[2018-07-28 06:54] LABS: ALB/GLOB RATIO 0.7; ALBUMIN 2.9 g/dL (3.5-5.0); CALCIUM 8.7 mg/dL (8.8-10.2); CREATININE 3.8 mg/dL (0.7-1.2); POTASSIUM 5.1 mmol/L (3.5-5.1); TOTAL BILIRUBIN 0.35 mg/dL (0.20-1.00); TOTAL PROTEIN 7.2 g/dL (6.3-8.3)
[2018-07-28] MEDS: CLINIMIX E 4.25%-5% SOLUTION 1,000 ML IV SCH ×2 (07:24→07:27)
[2018-07-28] MEDS: CENTRUM SILVER PO SCH (10:47)
[2018-07-28] MEDS ORDERED: NORVASC PO SCH (11:15)
[2018-07-28] MEDS: TYLENOL PO PRN (11:32)
[2018-07-28 15:36] VITALS: BP 160/100
--- NOTE | 2018-07-28 16:01 | NEPHROLOGY PROGRESS NOTE ---
DATE: 07/28/2018 SUBJECTIVE: He is hoping to go home today if he is able to eat his lunch. No new complaints. No shortness of breath, nausea, vomiting, etc. OBJECTIVE: Vital Signs: Blood pressure 167/100, heart rate 92, respirations 20, afebrile. General: No acute distress. Skin: Warm and dry. HEENT: Conjunctivae are pink. Neck: Neck veins are not distended. Heart: Regular. No gallops. Lungs: Equal. No crackles. Abdomen: Distended and soft. Bowel sounds are present. Extremities: No edema, clubbing, or cyanosis. IMPRESSION: Acute kidney injury. His creatinine and BUN are improving today. He has baseline normal renal function. Electrolytes are acceptable. Okay for discharge. We will arrange for outpatient follow up and management of his renal disease. cc: Harlan Funes MD
--- NOTE | 2018-07-29 05:58 | DISCHARGE SUMMARY ---
ADMISSION DATE: 07/06/2018 DISCHARGE DATE: 07/28/2018 CONSULTATIONS: 1. Gastroenterology Dr. Davison. 2. Pulmonary. Dr. Gresham. 3. General Surgery: Dr. Bravo. 4. Nephrology Dr. Funes. PROCEDURES: EGD showing esophagitis and duodenitis without any active bleeding or ulceration. IMAGIN. Initial CT abdomen and pelvis showing acute pancreatitis, and severe hepatic steatosis. Repeat abdomen and pelvis on 07/20 showing persistent pancreatitis and fatty liver. Again, repeat CT on 07/26 showing still some pancreatitis, but improved from previous and improvement of small bibasilar effusions. 2. Echocardiogram showing EF without major valve abnormality. DISCHARGE DIAGNOSES: 1. Acute pancreatitis. 2. Pneumonia. 3. JUAN. 4. Anemia likely acute post hemorrhagic. 5. Hypertension. 6. Obesity. 7. Diabetes. HOSPITAL COURSE: The patient presented initially with nausea, vomiting, and significant abdominal pain primarily in the epigastrium. Imaging showed clear evidence of acute pancreatitis. He was treated initially with conservative therapy with intravenous hydration and bowel rest. There was some question of heavy alcohol use, and he was started on a Librium taper but never developed any alcohol withdrawal. After admission, the patient had steady decrease in blood counts without clear signs of bleeding, but he trended down from 14 to 6.8. GI was consulted and performed EGD showing esophagitis and gastritis which was felt to be the source of his bleeding, but no ulcer or other major abnormality requiring urgent intervention. The patient did require transfusion of 2 units but subsequently blood counts stabilized and were actually improving somewhat up to 8.5 prior to discharge. A few days after admission patient also developed increasing shortness of breath and hypoxia some of which may have been due to anemia, but chest x-ray suggested likely pneumonia. ID and Pulmonology were involved, and he was treated with a course of Zyvox and meropenem with gradual improvement. Antibiotics were later discontinued. He did have some fevers after that, but repeat evaluation with x-rays and eventually CT showed no source of fever and these trended down as his pancreatitis resolved. Therefore, his recurrent fevers were felt to be due to pancreatitis and they did resolve without antibiotics prior to discharge. He also had a significant acute kidney injury during this hospitalization, which was felt to be secondary to his pancreatitis. Baseline creatinine appears to be 0.9. He trended up as high as 6.1, but never required dialysis. The evaluation of ultrasound and lab work did not show any other etiology of his kidney failure. This did improve slowly as his pancreatitis resolved, and his creatinine was down to 3.8 prior to discharge. Nephrology follow up with the patient was on board with discharge and plans on following him up in the Clinic to repeat lab work and ensure continued resolution. On the day of discharge, patient was tolerating a regular diet well. He still had some occasional mild nausea with no vomiting and no diarrhea, and had further abdominal pain. He was canceled to a low-fat diet. Avoid alcohol use. He was continued on PPI. DISCHARGE VITALS: Temperature 97.8, pulse rate 93, respirations 20, and blood pressure 160/100, and 02 sat 99 percent on room air. DISCHARGE PHYSICAL EXAMINATION: General: No acute distress. Vitals: As above. HEENT: Normocephalic and atraumatic. Moist mucous membranes. No cervical lymphadenopathy. Cardiovascular: Regular rate and rhythm. No murmur, gallop or rub. Pulmonology: Clear to auscultation bilaterally. Abdomen: Soft, nontender, nondistended. Bowel sounds positive. Extremities: Peripheral pulses are intact. No clubbing or cyanosis. Neurologic: No focal deficits identified. Psychiatric: Normal mood and affect. Awake, alert and oriented times 3. Skin: No new rashes or lesions identified. DISCHARGE DIET: Low-fat diabetic. No excess potassium. DISCHARGE MEDICATIONS: 1. Norvasc 10 mg p.o. daily. 2. Atorvastatin 40 mg p.o. daily. 3. Tylenol as needed for pain. 4. Clonidine 0.2 mg p.r.n. as at home. 5. Bentyl 20 mg p.o. q.6 h. p.r.n. 6. Levemir 20 mg subcutaneous b.i.d. 7. Meclizine 25 mg p.o. q.8 hour p.r.n. as at home. 8. Nicotine patch 21 mg every day. 9. Omeprazole 40 mg p.o. every day. 10. Phenergan 50 mg suppository q. 4 hours as needed. FOLLOW UP PLAN: The patient is to discharge home to follow up with PCP and Nephrology. Continuing off of antibiotics. PPI added for esophagitis and insulin added because of hyperglycemia and elevated A1c which was 11.5. Advised to stick to a low-fat until the symptoms completely resolved, and to avoid excess potassium until his kidney function improves. TIME SPENT: Greater than 30 minutes spent arranging discharge and counseling the patient.
== END 2018-07-28 15:54 | disposition home or self-care (01) | DRG 438 ==
LOC: P.ED 03:34 → SUATTDRO 12:07 → P.ICU 12:07 → ICU 07-11 02:21 → 4N 07-22 14:10
PROVIDERS: ATTEND Internal Medicine
CPT/HCPCS: 36430; 36569; 70450; 71010; 71045; 71250; 74000; 74018; 74019; 74020; 74022; 74176; 74177; 76700; 76770; 80048; 80053; 80069; 80074; 80076; 80202; 81001; 81256; 82009; 82103; 82140; 82150; 82248; 82390; 82570; 82607; 82728; 82746; 82784; 82805; 82948; 82977; 83036; 83516; 83540; 83550; 83605; 83690; 83735; 83930; 83935; 84100; 84145; 84156; 84300; 84439; 84443; 84478; 85014; 85018; 85025; 85027; 85610; 85651; 86038; 86039; 86140; 86255; 86850; 86900; 86901; 86920; 87040; 87088; 87205; 87324; 87449; 93005; 93306; 94640; 94660; 94761; 94762; 95816; 96374; 96375; 96376; 97116; 97162; 97530; 99285; A9270; C9113; J0131; J0610; J0692; J1170; J1630; J1644; J1650; J1815; J1940; J2020; J2060; J2185; J2250; J2270; J2405; J2543; J2560; J2997; J3370; J3411; J3475; J3480; J7030; J7040; J7050; J7070; P9016; Q9967; S0164; XXXXX